=== PATIENT | female | born 1935 | race American Indian/Alaskan Native ===

== ENCOUNTER 2017-03-27 15:06 | Outpatient (CLI) | payer MEDICARE, OTHER | END 2017-03-27 15:07 | disposition home or self-care (01) | LOC: LABHHL 15:06 | PROVIDERS: ATTEND Surgery | DX: D48.7 Neoplasm of uncertain behavior of other specified sites (principal) | CPT/HCPCS: 88305; 88342 ==

== ENCOUNTER 2017-04-17 14:00 | Outpatient (CLI) | payer MEDICARE ==
--- NOTE | 2017-04-18 13:21 | PET Report ---
PET/CT:04/17/17 14:00:00 CLINICAL: Breast cancer restaging. RADIOPHARMACEUTICAL: 15.5mCi F18-FDG. COMPARISON: None. TECHNIQUE- Following intravenous injection of F-18 FDG and an approximately 60 minute uptake period, CT and PET images from the mid skull to the upper thighs were acquired with the patient in the fasted state. No contrast was administered. The CT protocol used for this PET CT study is designed for attenuation correction and anatomic localization of PET abnormalities. This assistant health educator CT is not desired to produce and cannot replace, xzivz-xu-hht-art diagnostic CT scans with specific imaging protocols for different body parts and indications. Plasma glucose at the time of this test: 120g/dl. The standardized uptake values (SUV) are normalized to patient body weight and indicate the highest activity concentration (SUV max) in a given disease site. FINDINGS: Brain--Physiologic FDG uptake in the visualized regions of the brain. Neck--Physiologic FDG uptake . Chest--Physiologic FDG uptake in mediastinal blood pool and myocardium. Lungs--No abnormal uptake. No pulmonary nodule or mass. Pleura/pericardium--No abnormal uptake. Thoracic nodes--No abnormal uptake. Hepatobiliary--No abnormal uptake. Liver background SUV mean, as a reference for comparing FDG studies, is 4.6 . No liver mass. Spleen--No abnormal uptake. Pancreas--No abnormal uptake. Adrenal Glands--No abnormal uptake. Kidneys/Ureters/Bladder--No abnormal uptake. Numerous bilateral large benign renal cysts. A few cyst wall calcifications in the right kidney. The renal collecting systems are nondilated. Abdominopelvic Nodes--No abnormal uptake. Bowel/Peritoneum/Mesentery--No abnormal uptake. Pelvic organs--No abnormal uptake. Bones/Soft Tissues--No abnormal uptake. No suspicious bone lesion. Other findings: Non-FDG avid skin thickening of the right breast measures 1.1 mm in thickness. Slight increased density of the right breast but no abnormal FDG uptake. IMPRESSION- 1. Negative study with no evidence of disease recurrence or metastasis. 2. Benign post radiation changes of the right breast. 3. Autosomal dominant polycystic kidney disease.
--- NOTE | 2017-04-19 11:10 | Ultrasound Report ---
RIGHT BREAST ULTRASOUND: 04/17/17 14:00:00 CLINICAL: History of breast cancer status post right partial mastectomy and radiation therapy. COMPARISON: None. FINDINGS: Ultrasound of the right breast(including all four quadrants and the retroareolar area) was performed and demonstrated no mass or suspicious shadowing. No cyst or fluid collection. Moderate skin thickening of the breast which is greatest at 6 o'clock where it measures 9 mm. IMPRESSION: Negative study status post right partial mastectomy and radiation therapy. Post radiation skin changes. BI-RADS 2 - - Benign
== END 2017-04-17 14:01 | disposition home or self-care (01) ==
LOC: PET 14:00
PROVIDERS: ATTEND Surgery
DX: C50.411 Malignant neoplasm of upper-outer quadrant of right female breast (principal); N28.1 Cyst of kidney, acquired; N28.89 Other specified disorders of kidney and ureter; Z90.11 Acquired absence of right breast and nipple
CPT/HCPCS: 76641; 78815; 82962; A9552

== ENCOUNTER 2017-05-21 05:55 | Day surgery (SDC) | payer MEDICARE ==
[2017-05-21] MEDS ORDERED: PEPCID PO NR (06:00)
[2017-05-21] MEDS ORDERED: NACL 0.9% 1000 ML 1,000 ML IV SCH (06:00)
[2017-05-21] MEDS ORDERED: XYLOCAINE MPF 2% ONE (06:40)
[2017-05-21] MEDS ORDERED: DIPRIVAN 10 MG/ML IV ONE (06:43)
[2017-05-21] MEDS ORDERED: DILAUDID ONE (06:43)
[2017-05-21] MEDS ORDERED: NACL BACTERIOSTATIC INFILTRATI ONE (06:58)
[2017-05-21] MEDS ORDERED: ANCEF/STERILE WATER 2 GM/20 ML IV NR (07:00)
--- NOTE | 2017-05-21 07:03 | Anesthesia Day of Surgery ---
Anesthesia Day of Surgery - Day of Surgery Patient Examined: Yes Patient H&P Reviewed: Yes Patient is NPO: Yes Cardiac Clearance: Yes
--- NOTE | 2017-05-21 07:07 | Anesthesia Consultation ---
Anesthesia Consult and Med Hx - Airway Anesthetic Teeth Evaluation: Good, Bridges (upper bridge is loose) ROM Head & Neck: Adequate Mental/Hyoid Distance: Adequate Mallampati Class: Class II Intubation Access Assessment: Probably Good - Pulmonary Exam CTA: Yes - Cardiac Exam Cardiac Exam: RRR - Pre-Operative Health Status ASA Pre-Surgery Classification: ASA3 Proposed Anesthetic Plan: MAC - Cardiovascular System Hx Hypertension: Yes (SOME TIME NOW) - Gastrointestinal Hx Gastroesophageal Reflux Disease: Yes (controlled on meds) - Endocrine Hx Renal Disease: Yes (cyst on r kidney) Hx Non-Insulin Dependent Diabetes: Yes (pt states pre diabetic on no meds) - Additional Comments Anesthesia Medical History Comments: NPO after MN. No prior anesthetic complications. cardiac clearance on chart.
[2017-05-21] MEDS ORDERED: VERSED ONE (07:31)
[2017-05-21] MEDS ORDERED: MARCAINE 0.25% INFILTRATI ONE ×2 (07:41→08:46)
[2017-05-21] MEDS ORDERED: XYLOCAINE 1% 20 mL ONE (08:20)
[2017-05-21] MEDS ORDERED: ROBINUL ONE (08:20)
[2017-05-21] MEDS ORDERED: ZOFRAN ONE (08:21)
[2017-05-21] MEDS ORDERED: WATER FOR IRRIG STERILE IR ONE (08:46)
[2017-05-21] MEDS ORDERED: XYLOCAINE 1% 20 mL INFILTRATI ONE (08:47)
--- NOTE | 2017-05-21 09:24 | Short Stay Summary ---
Short Stay Documentation Date of service: 05/21/17 - History H&P: obtained from office - Allergies and Medications Current Medications: Allergies No Known Allergies Allergy (Verified 05/16/17 11:31) Home Medications Medication Instructions Recorded Confirmed Last Taken Type Anastrozole [Anastrozole] 1 mg PO DAILY 05/09/17 05/09/17 05/21/17 04:45 History Bisoprolol [Zebeta] 5 mg PO DAILY 05/09/17 05/09/17 05/21/17 04:45 History Diltiazem Xt [Taztia Xt] 300 mg PO DAILY 05/09/17 05/21/17 05/20/17 History Enalapril Maleate [Vasotec] 10 mg PO DAILY 05/09/17 05/09/17 05/21/17 04:45 History Escitalopram [Lexapro] 10 mg PO DAILY 05/09/17 05/09/17 05/21/17 04:45 History Lansoprazole [Lansoprazole] 30 mg PO DAILY 05/09/17 05/09/17 05/21/17 04:45 History HYDROcodone/APAP 5-325 [[place] 1 each PO Q6HR PRN #30 tablet 05/21/17 Unknown Rx 5/325] Active Medications Cefazolin Sodium (Ancef/Sterile Water 2 Gm/20 Ml) 2 gm IV PREOP NR Stop: 05/21/17 23:59 Famotidine (Pepcid) 20 mg PO PREOP NR Stop: 05/21/17 21:00 Last Admin: 05/21/17 07:01 Dose: 20 mg Sodium Chloride (Nacl 0.9% 1000 Ml) 1,000 mls @ 75 mls/hr IV DIRECT JAVED Last Admin: 05/21/17 07:05 Dose: 75 mls/hr - Brief post op/procedure progress note Date of procedure: 05/21/17 Pre-op diagnosis: Recurrent right breast cancer of the upper outer quadrant Post-op diagnosis: same Procedure: Right breast partial mastectomy Anesthesia: MAC Findings: Excisional of known positive skin punch biopsy breast cancer recurrence Surgeon: JUANY HUDSON Estimated blood loss: minimal Pathology: list (right partial mastectomy) Specimen disposition: to lab - Disposition Condition at discharge: Good Disposition: DC-01 TO HOME OR SELFCARE Short Stay Discharge Plan Activity: other (no heavy lifting) Diet: regular Wound: other (keep incision clean and dry and my shower in 24 hours; no baths, pools or lakes; do not rub or scrub incision) Follow up with: SIGRID WATKINS MD [Primary Care Provider] - 7 Days JUANY HUDSON MD [Staff Physician] - 7 Days Prescriptions: HYDROcodone/APAP 5-325 [[place] 5/325] 1 each PO Q6HR PRN #30 tablet PRN Reason: Pain
--- NOTE | 2017-05-21 09:33 | Operative Report ---
Operative Report Operative Report: Date of procedure: May 21, 2017 Pre-operative diagnosis: Recurrent right breast cancer of the upper outer quadrant Post-operative diagnosis: Same Procedure name(s): Right breast partial mastectomy Surgeon: Morenita Humphreys M.D. Anesthesia: Local Mac Findings: Right breast 11 o'clock position of the upper outer quadrant of known recurrence localized to the skin with palpable nodule and scar present Specimens: Right breast partial mastectomy Drains: None Estimated blood loss: Minimal Complications: None Disposition: PACU in good condition Indications for operative procedure: This is a 82-year-old lady with recurrent right breast cancer of the upper outer quadrant. Recent skin punch biopsy performed at palpable nodule at 11:00 position at prior surgical incisional scar with findings of recurrence of invasive carcinoma. Recommendations were to proceed with surgery for excision. Patient wished to proceed with local excision only. Patient wishes to proceed with the above procedure. Procedure in detail: The patient was taken to the operating room. She was laid supine. Local Mac anesthesia was administered. The right breast was prepped and draped in the normal sterile operative fashion. Timeout was performed. Surgical incision at the 11 o'clock position was identified at prior area of known positive skin punch biopsy for malignancy. Skin markings were made to encompass the area of concern using an ecllipictal incisin. Skin was anesthetized with 1% lidocaine and quarter percent Marcaine. A skin incision was then made with a 15 blade knife with dissection taken down to the subcutaneous incision down posteriorly anterior to the pectoralis muscle. Area of concern was appropriately removed. Breast specimen was appropriately marked and sent to pathology. Breast cavity was irrigated and suctioned. Hemostasis was noted. The subcutaneous tissues were approximated and closed using interrupted 3-0 Vicryl and the skin closed using of 4-0 Monocryl and skin affix. She tolerated surgery very well and was awakened from anesthesia without any complications and transported to PACU in good condition.
[2017-05-21 11:24] VITALS: BP 130/78
--- NOTE | 2017-05-21 14:28 | Post Anesthesia Evaluation ---
- Post Anesthesia Evaluation Patient Participated: Yes Airway Patent: Yes Stable Respiratory Function: Yes Nausea/Vomiting: No Temp > 96.8F: Yes Pain Manageable: Yes Adequeate Hydration: Yes Anesthesia Complications: No
== END 2017-05-21 10:25 | disposition home or self-care (01) ==
LOC: OR 05:55
PROVIDERS: ATTEND Surgery
DX: C50.411 Malignant neoplasm of upper-outer quadrant of right female breast (principal); I10 Essential (primary) hypertension; K21.9 Gastro-esophageal reflux disease without esophagitis; Z87.448 Personal history of other diseases of urinary system; Z90.710 Acquired absence of both cervix and uterus; Z98.890 Other specified postprocedural states; Z79.899 Other long term (current) drug therapy; Z80.3 Family history of malignant neoplasm of breast
CPT/HCPCS: 19120; 36415; 82962; 84132; 88307; 88361; J0690; J1170; J2250; J2405; J2704; J7030

== ENCOUNTER 2017-06-11 06:55 | Day surgery (SDC) | payer MEDICARE ==
[2017-06-11] MEDS ORDERED: NACL BACTERIOSTATIC INFILTRATI ONE (08:31)
[2017-06-11] MEDS ORDERED: DIPRIVAN 10 MG/ML IV ONE ×3 (08:35→10:04)
[2017-06-11] MEDS ORDERED: XYLOCAINE 1% 20 mL ONE (08:36)
[2017-06-11] MEDS ORDERED: MARCAINE 0.25% INFILTRATI ONE ×2 (08:36→09:54)
--- NOTE | 2017-06-11 08:42 | Anesthesia Consultation ---
Anesthesia Consult and Med Hx Date of service: 06/11/17 - Airway Anesthetic Teeth Evaluation: Good, Bridges (loose) ROM Head & Neck: Adequate Mental/Hyoid Distance: Adequate Mallampati Class: Class II Intubation Access Assessment: Probably Good - Pulmonary Exam CTA: Yes - Cardiac Exam Cardiac Exam: RRR - Pre-Operative Health Status ASA Pre-Surgery Classification: ASA3 Proposed Anesthetic Plan: General, MAC - Pulmonary Hx Smoking: No Hx Sleep Apnea: No (KIMBERLY PRE SCREEN LOW RISK) - Cardiovascular System Hx Hypertension: Yes - Central Nervous System Hx Back Pain: Yes Hx Psychiatric Problems: Yes (CLAUSTROPHOBIA) - Gastrointestinal Hx Gastroesophageal Reflux Disease: Yes (controlled on meds) - Endocrine Hx Non-Insulin Dependent Diabetes: Yes (pt states pre diabetic on no meds) - Other Systems Hx Cancer: Yes (RIGHT BREAST 2014 WITH RECURRENCE)
--- NOTE | 2017-06-11 08:42 | Anesthesia Day of Surgery ---
Anesthesia Day of Surgery - Day of Surgery Patient Examined: Yes Patient H&P Reviewed: Yes Patient is NPO: Yes Beta Blockers: Yes
[2017-06-11] MEDS ORDERED: NACL 0.9% 1000 ML 1,000 ML IV SCH (09:00)
[2017-06-11] MEDS ORDERED: ZOFRAN IV NR (09:00)
[2017-06-11] MEDS ORDERED: ANCEF/STERILE WATER 2 GM/20 ML IV NR (09:00)
[2017-06-11] MEDS ORDERED: PEPCID PO NR (09:00)
[2017-06-11] MEDS ORDERED: ePHEDrine SULFATE ONE (09:37)
[2017-06-11] MEDS ORDERED: WATER FOR IRRIG STERILE IR ONE (09:53)
[2017-06-11] MEDS ORDERED: XYLOCAINE 1% 20 mL INFILTRATI ONE (09:54)
[2017-06-11] MEDS ORDERED: VERSED IV PRN (10:00)
[2017-06-11] MEDS ORDERED: SUBLIMAZE ONE (10:04)
[2017-06-11] MEDS ORDERED: XYLOCAINE MPF 2% ONE (10:05)
--- NOTE | 2017-06-11 10:44 | Short Stay Summary ---
Short Stay Documentation Date of service: 06/11/17 - History H&P: obtained from office - Allergies and Medications Current Medications: Allergies No Known Allergies Allergy (Verified 05/16/17 11:31) Home Medications Medication Instructions Recorded Confirmed Last Taken Type Anastrozole [Anastrozole] 1 mg PO DAILY 05/09/17 06/11/17 06/10/17 History Lansoprazole [Lansoprazole] 30 mg PO DAILY 05/09/17 06/11/17 06/10/17 History RX: Bisoprolol [Zebeta] 5 mg PO DAILY 05/09/17 06/11/17 06/11/17 06:30 History RX: Diltiazem Xt [Taztia Xt] 300 mg PO DAILY 05/09/17 06/06/17 06/11/17 06:30 History RX: Enalapril Maleate [Vasotec] 10 mg PO DAILY 05/09/17 06/06/17 06/11/17 06:30 History Potassium Chloride [Klor-Con 10] 10 meq PO DAILY 06/06/17 06/11/17 06/10/17 History Brimonidine Tartrate [Alphagan P 1 drop OU BID 06/11/17 06/11/17 06/10/17 History 0.1%] HYDROcodone/APAP 5-325 [[place] 1 each PO Q6HR PRN #20 tablet 06/11/17 Unknown Rx 5/325] RX: Bimatoprost 0.01%(Nf) [[place] 1 drop OU BID 06/11/17 06/11/17 06/10/17 History 0.01%(Nf)] Active Medications Cefazolin Sodium (Ancef/Sterile Water 2 Gm/20 Ml) 2 gm IV PREOP NR Stop: 06/11/17 12:00 Famotidine (Pepcid) 20 mg PO PREOP NR Stop: 06/11/17 12:00 Last Admin: 06/11/17 08:37 Dose: 20 mg Hydromorphone HCl (Dilaudid) 0.5 mg IV Q10MIN PRN PRN Reason: Pain , Severe (7-10) Stop: 06/11/17 12:00 Sodium Chloride (Nacl 0.9% 1000 Ml) 1,000 mls @ 100 mls/hr IV DIRECT JAVED Last Admin: 06/11/17 08:40 Dose: 100 mls/hr Midazolam HCl (Versed) 1 mg IV PREOP PRN PRN Reason: Anxiety Stop: 06/12/17 10:01 Last Admin: 06/11/17 08:48 Dose: 1 mg - Brief post op/procedure progress note Date of procedure: 06/11/17 Pre-op diagnosis: Right breast cancer of the upper outer quadrant Post-op diagnosis: same Procedure: Right breast margin revision Anesthesia: MAC Findings: Right breast margin revision Surgeon: JUANY HUDSON Estimated blood loss: minimal Pathology: list (right breast margin revision) Specimen disposition: to lab Condition: stable - Disposition Condition at discharge: Good Disposition: DC- TO HOME OR SELFCARE Short Stay Discharge Plan Activity: other (no heavy lifting) Diet: regular Wound: other (keep incision clean and dry; may shower in 24 hours; no baths, pools or lakes; do not rub or scrub incision) Follow up with: SIGRID WATKINS MD [Primary Care Provider] - 7 Days JUANY HUDSON MD [Staff Physician] - 7 Days Prescriptions: HYDROcodone/APAP 5-325 [[place] 5/325] 1 each PO Q6HR PRN #20 tablet PRN Reason: Pain
--- NOTE | 2017-06-11 10:48 | Operative Report ---
Operative Report Operative Report: Date of service: 06/11/2017 Preoperative diagnosis: Right breast cancer of the upper outer quadrant, reoccurrence with positive margins Postoperative diagnosis: Same Procedure: Right breast margin revision Surgeon: Morenita Humphreys M.D. Anesthesia: Local Mac Findings: Inferior breast margin revised Complications: None Estimated blood loss: minimal Disposition: PACU in good condition Indications for operative procedure: This is an 82-year-old -[place] lady with recurrent right breast cancer of the upper outer quadrant. She most recently underwent a local excision with findings of less than 1 mm inferior margin close to cancer with recommendations for margin revision. Patient wished to proceed with the above procedure. Procedure in detail: The patient was taken to the operating room. She was laid supine. Local Mac anesthesia was administered. The right breast was prepped and draped in the normal operative fashion. This prior surgical incision was anesthetized with 1% lidocaine mixed with quarter percent Marcaine. Skin incision was made through the prior surgical incision using a 15 blade knife. Allis clamps were grasped on the inferior aspect of the skin to also include inferior breast tissues with inferior margin revised appropriately and marked and sent to pathology. Hemostasis was obtained with the aid of Bovie cautery. Posterior breast tissue was appropriately approximated and closed using interrupted 3-0 Vicryl and the subcutaneous tissues were brought together and closed using interrupted 3-0 Vicryl and skin brought together and closed using a running 4-0 Monocryl and skin affix. She tolerated surgery very well and was awakened from anesthesia and transported to PACU in good condition.
[2017-06-11] MEDS: DILAUDID IV PRN ×2 (10:50→11:03)
[2017-06-11] MEDS ORDERED: NORCO 5/325 PO SCH (11:31)
[2017-06-11 19:23] VITALS: BP 147/86
== END 2017-06-11 12:49 | disposition home or self-care (01) ==
LOC: OR 06:55 → EDSEX 06:55 → OR 12:49
PROVIDERS: ATTEND Surgery
DX: C50.411 Malignant neoplasm of upper-outer quadrant of right female breast (principal); I10 Essential (primary) hypertension; F40.240 Claustrophobia; K21.9 Gastro-esophageal reflux disease without esophagitis; Z98.890 Other specified postprocedural states; Z79.899 Other long term (current) drug therapy; Z90.710 Acquired absence of both cervix and uterus
CPT/HCPCS: 19301; 82962; 88307; J0690; J1170; J2250; J2405; J2704; J3010; J7030

== ENCOUNTER 2017-10-14 07:45 | Day surgery (SDC) | payer MEDICARE ==
--- NOTE | 2017-10-14 08:23 | Anesthesia Day of Surgery ---
Anesthesia Day of Surgery - Day of Surgery Patient Examined: Yes Patient H&P Reviewed: Yes Patient is NPO: Yes
--- NOTE | 2017-10-14 08:23 | Anesthesia Consultation ---
Anesthesia Consult and Med Hx Date of service: 10/14/17 - Airway Anesthetic Teeth Evaluation: Good, Bridges ROM Head & Neck: Adequate Mental/Hyoid Distance: Adequate Mallampati Class: Class II Intubation Access Assessment: Probably Good - Pulmonary Exam CTA: Yes - Cardiac Exam Cardiac Exam: RRR - Pre-Operative Health Status ASA Pre-Surgery Classification: ASA3 Proposed Anesthetic Plan: General, MAC - Pulmonary Hx Smoking: No Hx Sleep Apnea: No (KIMBERLY PRE SCREEN LOW RISK) - Cardiovascular System Hx Hypertension: Yes (MORE THAN 20Y) - Central Nervous System Hx Back Pain: Yes Hx Psychiatric Problems: Yes (CLAUSTROPHOBIA) - Gastrointestinal Hx Gastroesophageal Reflux Disease: Yes (controlled on meds, meds taken this am) - Endocrine Hx Non-Insulin Dependent Diabetes: Yes (pt states pre diabetic on no meds) - Other Systems Hx Alcohol Use: No Hx Substance Use: No Hx Cancer: Yes (RIGHT BREAST 2014 WITH RECURRENCE)
[2017-10-14] MEDS ORDERED: ZOFRAN IV PRN (08:24)
[2017-10-14] MEDS ORDERED: PERCOCET 5/325 PO PRN ×2 (08:24→12:44)
[2017-10-14] MEDS ORDERED: MORPHINE IV PRN (08:24)
[2017-10-14] MEDS ORDERED: VERSED IV NR (09:00)
[2017-10-14] MEDS ORDERED: NACL 0.9% 1000 ML 1,000 ML IV SCH (09:00)
[2017-10-14] MEDS ORDERED: HEPARIN 10,000 UNITS/10 ML ONE (09:54)
[2017-10-14] MEDS ORDERED: XYLOCAINE 1% 20 mL ONE (09:54)
[2017-10-14] MEDS ORDERED: NACL 0.9% 250ML 250 ML ONE (09:55)
[2017-10-14] MEDS ORDERED: ANCEF/STERILE WATER 2 GM/20 ML IV NR (10:00)
[2017-10-14] MEDS ORDERED: MARCAINE 0.25% INFILTRATI ONE ×3 (10:00→10:34)
[2017-10-14] MEDS ORDERED: DIPRIVAN 10 MG/ML IV ONE ×3 (10:06→11:28)
[2017-10-14] MEDS ORDERED: SUBLIMAZE ONE (10:06)
[2017-10-14] MEDS ORDERED: XYLOCAINE MPF 2% ONE (10:08)
[2017-10-14] MEDS ORDERED: XYLOCAINE 1% 20 mL INFILTRATI ONE ×2 (10:34)
[2017-10-14] MEDS ORDERED: NACL 0.9% 250ML IV ONE (10:47)
[2017-10-14] MEDS ORDERED: HEPARIN 10,000 UNITS/10 ML IV ONE (10:47)
[2017-10-14] MEDS ORDERED: NACL 0.9% IR ONE (10:54)
--- NOTE | 2017-10-14 12:09 | Short Stay Summary ---
Short Stay Documentation Date of service: 10/14/17 Narrative H&P: 82-year-old female with a history of right breast cancer, now with newly diagnosed recurrence in the right breast. Patient's being followed by Dr. Humphreys and is status post excision of right-sided breast cancer. She's also seeing oncology as an outpatient and is a candidate for chemotherapy. She is therefore referred for port placement. She has no complaints today. - History Principal diagnosis: right recurrent breast cancer H&P: obtained from office - Allergies and Medications Current Medications: Allergies Iodinated Contrast- Oral and IV Dye Allergy (Verified 10/09/17 14:39) Unknown Sulfa (Sulfonamide Antibiotics) Allergy (Verified 10/09/17 14:39) Hives Home Medications Medication Instructions Recorded Confirmed Last Taken Type Anastrozole [Anastrozole] 1 mg PO DAILY 05/09/17 10/09/17 10/14/17 07:00 History Bisoprolol [Zebeta] 5 mg PO DAILY 05/09/17 10/09/17 10/14/17 07:00 History Diltiazem Xt [Taztia Xt] 300 mg PO DAILY 05/09/17 10/09/17 10/14/17 07:00 History Enalapril Maleate [Vasotec] 10 mg PO DAILY 05/09/17 10/09/17 10/14/17 07:00 History Lansoprazole [Lansoprazole] 30 mg PO DAILY 05/09/17 10/09/17 10/14/17 07:00 History Potassium Chloride [Klor-Con 10] 10 meq PO DAILY 06/06/17 10/14/17 10/13/17 History Bimatoprost 0.01%(Nf) [[place] 1 drop OU BID 06/11/17 10/09/17 10/14/17 07:00 History 0.01%(Nf)] Brimonidine Tartrate [Alphagan P 1 drop OU BID 06/11/17 10/09/17 10/14/17 07:00 History 0.1%] Active Medications Sodium Chloride (Nacl 0.9% 1000 Ml) 1,000 mls @ 125 mls/hr IV DIRECT JAVED Last Admin: 10/14/17 08:55 Dose: 125 mls/hr Midazolam HCl (Versed) 2 mg IV PREOP NR Stop: 10/14/17 23:59 Last Admin: 10/14/17 09:55 Dose: 2 mg - Physical exam General appearance: no acute distress - Brief post op/procedure progress note Date of procedure: 10/14/17 Pre-op diagnosis: recurrent right breast cancer Post-op diagnosis: same Procedure: Left IJ port a cath placement Anesthesia: MAC, local Findings: good placement of port a cath, no PTX seen on intraop cxr Surgeon: MARK BLACKMON Estimated blood loss: minimal Pathology: none Condition: stable - Hospital course Hospital course: Patient was recovered in PACU. She was discharged to home in stable condition once criteria was met. - Disposition Condition at discharge: Stable Disposition: DC-01 TO HOME OR SELFCARE - Discharge Diagnoses (1) Recurrent breast cancer Status: Acute Qualifiers: Laterality: right Qualified Code(s): C50.911 - Malignant neoplasm of unspecified site of right female breast Short Stay Discharge Plan Activity: other (no driving if taking narcotic pain medications) Diet: regular Wound: open to air, other (no baths, hot tubs, pools until incisions are healed. May shower tomorrow, pat incisions dry, do not scrub skin glue) Additional Instructions: CAll surgeons office if fevers greater than 100.4, increasing redness around incisions or pus draining from incisions. Some bruising is normal. Follow-up with oncologist and Dr. Humphreys as scheduled. Follow up with: SIGRID WATKINS MD [Primary Care Provider] - 7 Days MARK BLACKMON DO [Staff Physician] - 14 Days Prescriptions: oxyCODONE /ACETAMINOPHEN [Percocet 5/325] 1 tab PO Q4HR #20 tab
--- NOTE | 2017-10-14 12:13 | Fluoroscopy Report ---
AP portable chest x-ray. History: Port insertion. Findings: A left Nlzprh-f-[id number] catheter terminates in the lower SVC, and there is no evidence of pneumothorax. The heart is mildly enlarged with normal pulmonary vascularity. The patient is slightly rotated. There is soft tissue prominence in the right hilum which may represent the right pulmonary artery. A small nodule cannot be excluded. Otherwise the lungs are clear. There is no pleural fluid. Impression: 1. No complications of left [id number]-[id number]-[id number] placement. 2. Soft tissue prominence in the right hilum, recommend a followup chest x-ray with better positioning to reevaluate the right hilum.
--- NOTE | 2017-10-14 12:22 | Operative Report ---
Operative Report Operative Report: Date of operation: 10/14/2017 Reoperative diagnosis: Recurrent right-sided breast cancer Postoperative diagnosis: Same as above Procedure performed: Placement of left internal jugular port a cath Surgeon: Su Piña DO Anesthesia: MAC, local Findings: On intraoperative CXR - good placement of port and no PTX EBL: 10cc Complications: none Disposition: stable to PACU HPI and indication: Patient is a 82-year-old female who has a history of breast cancer and was recently diagnosed with a recurrence on the right hand side. She is seen by Dr. Humphreys and oncology as an outpatient and is deemed a candidate for chemotherapy. She was therefore referred for port. All of the risks associated with the procedure were discussed with the patient including but not limited to pneumothorax, infection, bleeding, malpositioned port, injury to other structures. The patient understands and all questions were answered. Consent was signed and placed on chart. Procedure in detail: The patient was identified in the preoperative area, taken back to operating room, placed on operating table in supine position. After anesthesia was induced both arms were tucked and upper chest and neck were prepped and draped in usual sterile fashion. A timeout was performed. She was placed in Trendelenburg position. Local anesthetic was infiltrated into the skin at the intended puncture site. An attempt was made to access the subclavian vein on the left-hand side. This was accessed on the second stick however there was resistance with placing the wire and therefore subclavian access was aborted. Pressure was held at the site until there was no further bleeding. It was then decided to attempt a left internal jugular vein access. Using ultrasound guidance a left internal jugular vein was identified and compressible. The vein was accessed on the first stick with return of dark red , nonpulsatile blood. The wire was threaded under fluoroscopy however was meeting resistance. This was switched to a Glidewire which was successfully placed under fluoroscopy. The needle was then removed. Using a 15 blade, an incision was made in the left upper chest and dissection carried down through the skin and subcutaneous tissue using Bovie electrocautery. Hemostasis was achieved along the way. A pocket for the port was then created bluntly and with electrocautery. The catheter was flushed and tunneled from the pocket to the wire. A breakaway catheter/dilator sheath then inserted over the wire under fluoroscopy, and the wire and dilator removed. The catheter was then fed through the breakaway catheter which was then broken away. The catheter sat flush under the skin. Using continuous fluoroscopy, the catheter was pulled back until the tip was visualized in the right atrium. The catheter was then cut to size and the port attached in the usual fashion. The port was then sutured into place to the pre-pectoral fascia using 2-0 Vicryl interrupted sutures. The wound was irrigated and hemostasis ensured. The port was tested with heparinized saline and there was return of blood and it flushed easily. The port was then instilled with 3000 units of straight heparin. The deep dermal layer was then closed with interrupted 3-0 Vicryl stitches. The skin incisions were closed with 4-0 Monocryl subcuticular stitches and skin glue. Intraoperative chest x-ray did show good positioning of the port, without evidence of pneumothorax At the end of the case, all sponge, instrument, sharp counts were correct 2. The patient was awoken from anesthesia and taken to PACU in stable condition.
--- NOTE | 2017-10-14 12:45 | Post Anesthesia Evaluation ---
- Post Anesthesia Evaluation Patient Participated: Yes Airway Patent: Yes Stable Respiratory Function: Yes Temp > 96.8F: Yes Pain Manageable: Yes Adequeate Hydration: Yes Anesthesia Complications: No
[2017-10-14 13:56] VITALS: BP 160/88
== END 2017-10-14 13:45 | disposition home or self-care (01) ==
LOC: OR 07:45
PROVIDERS: ATTEND Surgery
DX: C50.411 Malignant neoplasm of upper-outer quadrant of right female breast (principal); K21.9 Gastro-esophageal reflux disease without esophagitis; I10 Essential (primary) hypertension; Z79.899 Other long term (current) drug therapy; Z91.041 Radiographic dye allergy status; Z88.2 Allergy status to sulfonamides
CPT/HCPCS: 36561; 77001; 82962; C1769; C1788; J0690; J1644; J2250; J2704; J3010; J7030; J7050

== ENCOUNTER 2018-03-15 19:01 | Inpatient (IN) | payer MEDICARE ==
[2018-03-15 19:55] LABS: Hematocrit 36.1 % (30.3-42.9); Hemoglobin 11.6 gm/dl (10.1-14.3); Mean Corpuscular HGB Conc 32 % (30-34); Mean Corpuscular Hemoglobin 31 pg (28-32); Mean Corpuscular Volume 95 fl (79-97); Platelet Count 229 K/mm3 (140-440); Red Blood Count 3.79 M/mm3 (3.65-5.03); Red Cell Distribution Width 18.5 % (13.2-15.2)
[2018-03-15 20:24] LABS: Bilirubin,Urine NEG (Negative); Blood,Urine NEG (Negative); Color,Urine Yellow (Yellow); Protein,Urine <15 mg/dL mg/dL (Negative); Urobilinogen,Urine < 2.0 mg/dL (<2.0); WBC,Urine < 1.0 /HPF (0.0-6.0)
[2018-03-15 20:30] LABS: Alanine Aminotransferase 9 units/L (7-56); Albumin 3.2 g/dL (3.9-5); BUN/Creatinine Ratio 38; Blood Urea Nitrogen 34 mg/dL (7-17); Hemolysis Index 3
[2018-03-15 20:34] LABS: Amphetamine Screen,Urine PRESUMPTIVE NEGATIVE; Benzodiazepines Screen,Urine PRESUMPTIVE NEGATIVE; Cannabinoid Screen,Urine PRESUMPTIVE NEGATIVE; Cocaine Screen,Urine PRESUMPTIVE NEGATIVE; Methadone Screen,Urine PRESUMPTIVE NEGATIVE; Opiate Screen,Urine PRESUMPTIVE NEGATIVE
[2018-03-15 20:40] LABS: Band Neutrophils # (Manual) 0.3 K/mm3; Basophils % (Manual) 0 % (0.0-1.8); Eosinophils % (Manual) 0 % (0.0-4.3); Platelet Estimate Consistent w Auto; Total Cells Counted 100
[2018-03-15] MEDS ORDERED: ATIVAN IM ONE (20:47)
[2018-03-15] MEDS ORDERED: ATIVAN ONE (20:48)
--- NOTE | 2018-03-15 20:54 | Emergency Department Report ---
HPI - General Chief Complaint: Altered Mental Status Time Seen by Provider: 03/15/18 20:09 - HPI HPI: 83-year-old female presents to the emergency department via EMS from her long term at [place] with a complaint of some altered mental status and lethargy since last night. She has a history of diabetes, GERD, hypertension and she has breast cancer undergoing chemotherapy. The patient's son is bedside and says that she has been in out of a few different hospitals including [facility] and what sounds like another hospital in [facility] for some similar episodes of altered mental status. At one point he says that she had a seizure, without seizure disorder, and a heart attack. He says that he checked on her last night and there were multiple episodes where she was in a "deep sleep" and as the son says "unresponsive to human touch." It does not sound as if she ever stopped breathing or lost her pulse but just was unresponsive. She currently only moans and is easily agitated and appears confused. ED Past Medical Hx - Past Medical History Hx Hypertension: Yes (MORE THAN 20Y) Hx Diabetes: Yes Hx GERD: Yes Hx HIV: No - Surgical History Hx Breast Surgery: Yes (2014 WITH RADIATION TREATMENT) - Social History Smoking Status: Unknown if ever smoked - Medications Home Medications: Home Medications Medication Instructions Recorded Confirmed Last Taken Type Anastrozole 1 mg PO DAILY 05/09/17 10/09/17 10/14/17 07:00 History Bisoprolol [Zebeta] 5 mg PO DAILY 05/09/17 10/09/17 10/14/17 07:00 History Diltiazem Xt [Taztia Xt] 300 mg PO DAILY 05/09/17 10/09/17 10/14/17 07:00 History Enalapril Maleate [Vasotec] 10 mg PO DAILY 05/09/17 10/09/17 10/14/17 07:00 History Lansoprazole 30 mg PO DAILY 05/09/17 10/09/17 10/14/17 07:00 History Potassium Chloride [Klor-Con 10] 10 meq PO DAILY 06/06/17 10/14/17 10/13/17 History Bimatoprost 0.01%(Nf) [Lumigan 1 drop OU BID 06/11/17 10/09/17 10/14/17 07:00 History 0.01%(Nf)] Brimonidine Tartrate [Alphagan P 1 drop OU BID 06/11/17 10/09/17 10/14/17 07:00 History 0.1%] oxyCODONE /ACETAMINOPHEN [Percocet 1 tab PO Q4HR #20 tab 10/14/17 Unknown Rx 5/325] ED Review of Systems ROS: Stated complaint: LETHARGIC/AMS Other details as noted in HPI Comment: Unobtainable due to pts medical conditions Physical Exam - Physical Exam Vital Signs: Vital Signs 03/15/18 03/15/18 19:15 20:20 Temperature 98.5 F Pulse Rate 105 H 106 H Respiratory 20 18 Rate Blood Pressure 155/96 Blood Pressure 121/94 [Right] O2 Sat by Pulse 100 97 Oximetry Physical Exam: GENERAL: Patient is well-developed but ill-appearing. HENT: Normocephalic. Atraumatic. Patient has dry mucous membranes. EYES: Extraocular motions are intact. Pupils equal reactive to light bilaterally. NECK: Supple. Trachea is midline. CHEST/LUNGS: Clear to auscultation. There is no respiratory distress noted. HEART/CARDIOVASCULAR: Regular. There is no tachycardia. There is no murmur. ABDOMEN: Abdomen is soft, nontender. Patient has normal bowel sounds. There is no abdominal distention. SKIN: Skin is warm and dry. NEURO: The patient will wake up but is confused and more agitated. Sometimes she moans but otherwise does not say anything intelligible and does not follow any commands. She withdraws to painful stimuli. MUSCULOSKELETAL: There is no tenderness or deformity. There is no evidence of acute injury. ED Course Vital Signs 03/15/18 03/15/18 19:15 20:20 Temperature 98.5 F Pulse Rate 105 H 106 H Respiratory 20 18 Rate Blood Pressure 155/96 Blood Pressure 121/94 [Right] O2 Sat by Pulse 100 97 Oximetry - Consultations Consultation #1: 03/16/18 01:[address] Nieves about her elevated troponin of 0.045 and the possible new Atrial flutter with controlled rate and he says Heparin should not be given at this time and to trend the troponins and they are happy to see the patient as a consult. ED Medical Decision Making - Lab Data Result diagrams: 03/15/18 19:36 03/15/18 19:36 - EKG Data -: EKG Interpreted by Me - EKG Data When compared to previous EKG there are: previous EKG unavailable Interpretation: other (atrial flutter with 21 AV block, left axis deviation, left anterior fascicular block) - Radiology Data Radiology results: report reviewed, image reviewed interpreted by me: Chest x-ray does not show any acute process. There are no pleural effusions, obvious pneumonia and there is no pneumothorax. EXAM: CT HEAD/BRAIN WO CON HISTORY: AMS TECHNIQUE: CT head without contrast PRIORS: None. FINDINGS: No acute intra-axial or extra-axial hemorrhage is identified. There is no evidence of midline shift or mass effect. The ventricles and sulci are within normal limits. Parker-white matter differentiation is intact. No acute parenchymal abnormalities seen. Bony calvarium is grossly intact. Visualized portions of the mastoids and paranasal sinuses are unremarkable. IMPRESSION: Negative CT head Transcribed By: KIKO Dictated By: ELIN MARTINS MD Electronically Authenticated By: ELIN MARTINS MD Signed Date/Time: 03/15/182120 - Medical Decision Making Patient presents from her long term with some unresponsive episodes and altered mental status. It sounds like, from her son, that she has had some general decline since she was in a hospital in December but he still maintains that her current state is altered from baseline. CT scan of the head did not show any bleed, shift, mass or any acute process. EKG shows atrial flutter. At first I thought this might be secondary to movement and/or agitation but when she was sedated the monitor still appeared to show some signs of flutter. However she does not have any significant tachycardia and appears rate control. She did have elevated troponin at 0.045 but it has now trended down to 0.033. I had spoken with the oil tank car cleaner who did not recommend heparin and does recommend trending troponins and will see the patient has a consult. The rest the labs are mostly unremarkable and did not show any etiology of her symptoms. She is not having leukocytosis but her differential does show a left shift. Patient will be admitted to the hospital for further evaluation and treatment has been accepted for admission by the hospitalist, Dr Dumont. - Differential Diagnosis VT, dysrythmia, CVA/TIA, dementia, Sepsis Critical Care Time: No Critical care attestation.: If time is entered above; I have spent that time in minutes in the direct care of this critically ill patient, excluding procedure time. ED Disposition Clinical Impression: Elevated troponin Altered mental status Qualifiers: Altered mental status type: unspecified Qualified Code(s): R41.82 - Altered mental status, unspecified Atrial flutter Qualifiers: Atrial flutter type: unspecified Qualified Code(s): I48.92 - Unspecified atrial flutter Disposition: DC-09 OP ADMIT IP TO THIS HOSP Is pt being admited?: Yes Condition: Fair Referrals: BEE POLLOCK,JIMBO [Other] - 3-5 Days Forms: Accompanied Note
--- NOTE | 2018-03-15 21:16 | XRay Report ---
FINAL REPORT EXAM: XR CHEST 1V AP HISTORY: AMS TECHNIQUE: AP portable PRIORS: None. FINDINGS: There is the left sided chest port catheter tip at the SVC There is elevation of the right hemidiaphragm. Cardiac and mediastinal contours are unremarkable. No confluent pulmonary infiltrate is identified. No pleural fluid collection seen. Pulmonary vasculature is unremarkable. IMPRESSION: Chest port Elevation of the right hemidiaphragm No acute pulmonary findings
--- NOTE | 2018-03-15 21:27 | Cat Scan Report ---
FINAL REPORT EXAM: CT HEAD/BRAIN WO CON HISTORY: AMS TECHNIQUE: CT head without contrast PRIORS: None. FINDINGS: No acute intra-axial or extra-axial hemorrhage is identified. There is no evidence of midline shift or mass effect. The ventricles and sulci are within normal limits. Parker-white matter differentiation is intact. No acute parenchymal abnormalities seen. Bony calvarium is grossly intact. Visualized portions of the mastoids and paranasal sinuses are unremarkable. IMPRESSION: Negative CT head
[2018-03-15 21:32] LABS: Chol/HDL Ratio 3.34 %
[2018-03-15] MEDS ORDERED: ASPIRIN PR ONE (21:54)
[2018-03-15] MEDS ORDERED: NACL 0.9% 1000 ML 1,000 ML IV ONE (21:55)
[2018-03-15] MEDS ORDERED: ATIVAN IV ONE (23:43)
[2018-03-16] MEDS ORDERED: SODIUM CHLORIDE FLUSH SYRINGE 10 ML IV PRN (00:47)
[2018-03-16] MEDS ORDERED: ZOFRAN IV PRN (00:47)
[2018-03-16] MEDS ORDERED: LOPRESSOR IV PRN (00:51)
[2018-03-16] MEDS ORDERED: D50W (25GM) Syringe IV PRN (00:55)
--- NOTE | 2018-03-16 01:53 | History and Physical Report ---
History of Present Illness Date of examination: 03/16/18 Chief complaint: Altered mental status History of present illness: Patient is a 83-year-old female who presented to the emergency department via EMS from [facility] facility with complaint of altered mental status and lethargy since last night. She has history of diabetes, hypertension and breast cancer undergoing chemotherapy. History was unable to be obtained from the patient due to altered mental status. The son, who was at the bedside stated that when he visited his mother at the [facility] facility , he noticed that she was sleeping for a long period of time. She was unresponsive when they tried waking her up. No preceding history of fever, trauma or fall. The son stated that she had been in and out of the hospital for the past few months, and that she had been deteriorating since then. Past History Past Medical History: diabetes, GERD, hypertension, other (breast cancer status post radiation, on current chemotherapy) Past Surgical History: Other (breast surgery) Social history: other (no reported history of tobacco, alcohol or illicit drug use) Family history: other (could not be obtained due to altered mental status) Medications and Allergies Allergies Allergy/AdvReac Type Severity Reaction Status Date / Time Iodinated Contrast- Oral and Allergy Unknown Verified 10/09/17 14:39 IV Dye Sulfa (Sulfonamide Allergy Hives Verified 10/09/17 14:39 Antibiotics) Home Medications Medication Instructions Recorded Confirmed Last Taken Type Anastrozole 1 mg PO DAILY 05/09/17 10/09/17 10/14/17 07:00 History Bisoprolol [Zebeta] 5 mg PO DAILY 05/09/17 10/09/17 10/14/17 07:00 History Diltiazem Xt [Taztia Xt] 300 mg PO DAILY 05/09/17 10/09/17 10/14/17 07:00 History Enalapril Maleate [Vasotec] 10 mg PO DAILY 05/09/17 10/09/17 10/14/17 07:00 History Lansoprazole 30 mg PO DAILY 05/09/17 10/09/17 10/14/17 07:00 History Potassium Chloride [Klor-Con 10] 10 meq PO DAILY 06/06/17 10/14/17 10/13/17 History Bimatoprost 0.01%(Nf) [Lumigan 1 drop OU BID 06/11/17 10/09/1717 07:00 History 0.01%(Nf)] Brimonidine Tartrate [Alphagan P 1 drop OU BID 06/11/17 10/09/17 10/14/17 07:00 History 0.1%] oxyCODONE /ACETAMINOPHEN [Percocet 1 tab PO Q4HR #20 tab 10/14/17 Unknown Rx 5/325] Active Meds: Active Medications Acetaminophen (Tylenol) 650 mg PO Q4H PRN PRN Reason: Pain MILD(1-3)/Fever >100.5/RASHEED Dextrose (D50w (25gm) Syringe) 50 ml IV PRN PRN PRN Reason: Hypoglycemia Heparin Sodium (Porcine) (Heparin) 5,000 unit SUB-Q Q12HR JAVED Sodium Chloride (Nacl 0.9% 1000 Ml) 1,000 mls @ 125 mls/hr IV ONCE ONE Stop: 03/16/18 05:54 Last Admin: 03/15/18 22:22 Dose: 125 mls/hr Insulin Human Lispro (Humalog) 0 unit SUB-Q ACHS JAVED; Protocol Lorazepam (Ativan) 1 mg IV Q4H PRN PRN Reason: Agitation Metoprolol Tartrate (Lopressor) 25 mg PO BID JAVED Metoprolol Tartrate (Lopressor) 5 mg IV Q6H PRN PRN Reason: Tachyarrhythmias Ondansetron HCl (Zofran) 4 mg IV Q8H PRN PRN Reason: Nausea And Vomiting Sodium Chloride (Sodium Chloride Flush Syringe 10 Ml) 10 ml IV BID JAVED Sodium Chloride (Sodium Chloride Flush Syringe 10 Ml) 10 ml IV PRN PRN PRN Reason: LINE FLUSH Review of Systems ROS unobtainable: due to mental status (altered mental status) Exam - Constitutional Vitals: Temp Pulse Resp BP Pulse Ox 98.5 F 97 H 13 117/70 100 03/15/18 20:20 03/15/18 22:36 03/15/18 22:36 03/15/18 22:36 03/15/18 22:36 General appearance: Present: no acute distress - EENT Eyes: Present: PERRL, EOM intact ENT: clear oral mucosa - Neck Neck: Present: supple, normal ROM - Respiratory Respiratory effort: normal Respiratory: bilateral: CTA - Cardiovascular Rhythm: other (tachycardia with regular rhythm) Heart Sounds: Present: S1 & S2. Absent: rub, click - Extremities Extremities: pulses symmetrical, No edema - Abdominal General gastrointestinal: Present: soft, non-tender, non-distended, normal bowel sounds - Integumentary Integumentary: Present: warm, dry - Musculoskeletal Musculoskeletal: strength equal bilaterally - Psychiatric Psychiatric: agitated - Neurologic Neurologic: CNII-XII intact, moves all extremities Results - Labs CBC & Chem 7: 03/15/18 19:36 03/15/18 19:36 Labs: Laboratory Last Values WBC 10.5 K/mm3 (4.5-11.0) 03/15/18 19:36 RBC 3.79 M/mm3 (3.65-5.03) 03/15/18 19:36 Hgb 11.6 gm/dl (10.1-14.3) 03/15/18 19:36 Hct 36.1 % (30.3-42.9) 03/15/18 19:36 MCV 95 fl (79-97) 03/15/18 19:36 MCH 31 pg (28-32) 03/15/18 19:36 MCHC 32 % (30-34) 03/15/18 19:36 RDW 18.5 % (13.2-15.2) H 03/15/18 19:36 Plt Count 229 K/mm3 (140-440) 03/15/18 19:36 [place] % (Auto) Operations/Dispatch 03/15/18 19:36 Add Manual Diff Complete 03/15/18 19:36 Total Counted 100 03/15/18 19:36 Seg Neuts % (Manual) 82.0 % (40.0-70.0) H 03/15/18 19:36 Band Neutrophils % 3.0 % 03/15/18 19:36 Lymphocytes % (Manual) 5.0 % (13.4-35.0) L 03/15/18 19:36 Reactive Lymphs % (Man) 0 % 03/15/18 19:36 Monocytes % (Manual) 10.0 % (0.0-7.3) H 03/15/18 19:36 Eosinophils % (Manual) 0 % (0.0-4.3) 03/15/18 19:36 Basophils % (Manual) 0 % (0.0-1.8) 03/15/18 19:36 Metamyelocytes % 0 % 03/15/18 19:36 Myelocytes % 0 % 03/15/18 19:36 Promyelocytes % 0 % 03/15/18 19:36 Blast Cells % 0 % 03/15/18 19:36 Nucleated RBC % Not Reportable 03/15/18 19:36 Seg Neutrophils # Man 8.6 K/mm3 (1.8-7.7) H 03/15/18 19:36 Band Neutrophils # 0.3 K/mm3 03/15/18 19:36 Lymphocytes # (Manual) 0.5 K/mm3 (1.2-5.4) L 03/15/18 19:36 Abs React Lymphs (Man) 0.0 K/mm3 03/15/18 19:36 Monocytes # (Manual) 1.1 K/mm3 (0.0-0.8) H 03/15/18 19:36 Eosinophils # (Manual) 0.0 K/mm3 (0.0-0.4) 03/15/18 19:36 Basophils # (Manual) 0.0 K/mm3 (0.0-0.1) 03/15/18 19:36 Metamyelocytes # 0.0 K/mm3 03/15/18 19:36 Myelocytes # 0.0 K/mm3 03/15/18 19:36 Promyelocytes # 0.0 K/mm3 03/15/18 19:36 Blast Cells # 0.0 K/mm3 03/15/18 19:36 WBC Morphology Not Reportable 03/15/18 19:36 Hypersegmented Neuts Not Reportable 03/15/18 19:36 Hyposegmented Neuts Not Reportable 03/15/18 19:36 Hypogranular Neuts Not Reportable 03/15/18 19:36 Smudge Cells Not Reportable 03/15/18 19:36 Toxic Granulation Not Reportable 03/15/18 19:36 Toxic Vacuolation Not Reportable 03/15/18 19:36 Dohle Bodies Not Reportable 03/15/18 19:36 Pelger-Huet Anomaly Not Reportable 03/15/18 19:36 Bassem Rods Not Reportable 03/15/18 19:36 Platelet Estimate Consistent w auto 03/15/18 19:36 Clumped Platelets Not Reportable 03/15/18 19:36 Plt Clumps, EDTA Not Reportable 03/15/18 19:36 Large Platelets Not Reportable 03/15/18 19:36 Giant Platelets Not Reportable 03/15/18 19:36 Platelet Satelliting Not Reportable 03/15/18 19:36 Plt Morphology Comment Not Reportable 03/15/18 19:36 RBC Morphology Not Reportable 03/15/18 19:36 Dimorphic RBCs Not Reportable 03/15/18 19:36 Polychromasia Not Reportable 03/15/18 19:36 Hypochromasia Not Reportable 03/15/18 19:36 Poikilocytosis Not Reportable 03/15/18 19:36 Anisocytosis Not Reportable 03/15/18 19:36 Microcytosis Not Reportable 03/15/18 19:36 Macrocytosis Not Reportable 03/15/18 19:36 Spherocytes Not Reportable 03/15/18 19:36 Pappenheimer Bodies Not Reportable 03/15/18 19:36 Sickle Cells Not Reportable 03/15/18 19:36 Target Cells Not Reportable 03/15/18 19:36 Tear Drop Cells Not Reportable 03/15/18 19:36 Ovalocytes Not Reportable 03/15/18 19:36 Helmet Cells Not Reportable 03/15/18 19:36 [place] Bodies Not Reportable 03/15/18 19:36 [place] Rings Not Reportable 03/15/18 19:36 Benny Cells Not Reportable 03/15/18 19:36 Bite Cells Not Reportable 03/15/18 19:36 Crenated Cell Not Reportable 03/15/18 19:36 Elliptocytes Not Reportable 03/15/18 19:36 Acanthocytes (Spur) Not Reportable 03/15/18 19:36 Rouleaux Not Reportable 03/15/18 19:36 Hemoglobin C Crystals Not Reportable 03/15/18 19:36 Schistocytes Not Reportable 03/15/18 19:36 Malaria parasites Not Reportable 03/15/18 19:36 Rubens Bodies Not Reportable 03/15/18 19:36 Hem Pathologist Commnt No 03/15/18 19:36 Sodium 141 mmol/L (137-145) 03/15/18 19:36 Potassium 4.0 mmol/L (3.6-5.0) 03/15/18 19:36 Chloride 96.0 mmol/L (98-107) L 03/15/18 19:36 Carbon Dioxide 31 mmol/L (22-30) H 03/15/18 19:36 Anion Gap 18 mmol/L 03/15/18 19:36 BUN 34 mg/dL (7-17) H 03/15/18 19:36 Creatinine 0.9 mg/dL (0.7-1.2) 03/15/18 19:36 Estimated GFR > 60 ml/min 03/15/18 19:36 BUN/Creatinine Ratio 38 % 03/15/18 19:36 Glucose 129 mg/dL (65-100) H 03/15/18 19:36 Lactic Acid 1.70 mmol/L (0.7-2.0) 03/15/18 22:06 Calcium 10.0 mg/dL (8.4-10.2) 03/15/18 19:36 Total Bilirubin 0.40 mg/dL (0.1-1.2) 03/15/18 19:36 AST 16 units/L (5-40) 03/15/18 19:36 ALT 9 units/L (7-56) 03/15/18 19:36 Alkaline Phosphatase 70 units/L (35-129) 03/15/18 19:36 Ammonia 19.0 umol/L (25-60) L 03/15/18 21:20 Troponin T 0.033 ng/mL (0.00-0.029) H D 03/15/18 23:31 Total Protein 7.8 g/dL (6.3-8.2) 03/15/18 19:36 Albumin 3.2 g/dL (3.9-5) L 03/15/18 19:36 Albumin/Globulin Ratio 0.7 % 03/15/18 19:36 Triglycerides 151 mg/dL (2-149) H 03/15/18 19:40 Cholesterol 137 mg/dL (50-199) 03/15/18 19:40 LDL Cholesterol Direct 72 mg/dL (50-130) 03/15/18 19:40 HDL Cholesterol 41 mg/dL (40-59) 03/15/18 19:40 Cholesterol/HDL Ratio 3.34 % 03/15/18 19:40 TSH 4.010 mlU/mL (0.270-4.200) 03/15/18 19:36 Urine Color Yellow (Yellow) 03/15/18 19:59 Urine Turbidity Clear (Clear) 03/15/18 19:59 Urine pH 8.0 (5.0-7.0) H 03/15/18 19:59 Ur Specific [place] 1.015 (1.003-1.030) 03/15/18 19:59 Urine Protein <15 mg/dl mg/dL (Negative) 03/15/18 19:59 Urine Glucose (UA) Neg mg/dL (Negative) 03/15/18 19:59 Urine Ketones Neg mg/dL (Negative) 03/15/18 19:59 Urine Blood Neg (Negative) 03/15/18 19:59 Urine Nitrite Neg (Negative) 03/15/18 19:59 Urine Bilirubin Neg (Negative) 03/15/18 19:59 Urine Urobilinogen < 2.0 mg/dL (<2.0) 03/15/18 19:59 Ur Leukocyte Esterase Neg (Negative) 03/15/18 19:59 Urine WBC (Auto) < 1.0 /HPF (0.0-6.0) 03/15/18 19:59 Urine RBC (Auto) 3.0 /HPF (0.0-6.0) 03/15/18 19:59 Urine Opiates Screen Presumptive negative 03/15/18 19:59 Urine Methadone Screen Presumptive negative 03/15/18 19:59 Ur Barbiturates Screen Presumptive negative 03/15/18 19:59 Ur Phencyclidine Scrn Presumptive negative 03/15/18 19:59 Ur Amphetamines Screen Presumptive negative 03/15/18 19:59 U Benzodiazepines Scrn Presumptive negative 03/15/18 19:59 Urine Cocaine Screen Presumptive negative 03/15/18 19:59 U Marijuana (THC) Screen Presumptive negative 03/15/18 19:59 Drugs of Abuse Note Disclamer 03/15/18 19:59 Plasma/Serum Alcohol < 0.01 % (0-0.07) 03/15/18 19:36 Assessment and Plan Assessment and plan: New atrial flutter with RVR -Patient will be placed on a rate controlling agent and monitored on telemetry. 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
[2018-03-16] MEDS: NACL 0.9% 1000 ML 1,000 ML IV SCH (03:30)
[2018-03-16] MEDS: ATIVAN IV PRN ×3 (07:00→22:34)
[2018-03-16] MEDS: HumaLOG SUB-Q SCH ×3 (08:33→23:41)
--- NOTE | 2018-03-16 09:10 | Progress Note ---
<WILY PRUITT - Last Filed: 03/16/18 15:37> Assessment and Plan Assessment and plan: Pt is confused and restrained on evaluation and thus HPI is obtained from admitting provider's H&P. Pt presented to the ED via EMS on 03/15/2018 from her retirement at [facility] with a complaint of some altered mental status and lethargy for one day prior to arrival. Per pt's son, who was at bedside in ED, pt has been in out of a few different hospitals, including [facility], for some similar episodes of altered mental status. At one point he said that she had a seizure, without seizure disorder, and a heart attack. He says that on the day prior to admission, he noted multiple episodes where she appeared to be in a "deep sleep" and "unresponsive to human touch." It does not sound as if she ever stopped breathing or lost her pulse but just was unresponsive. She currently only moans and is easily agitated and appears confused. Atrial fibrillation with RVR Continue lopressor, TSH level is normal Cardiology consulted in the ED, will not repeat echo ( in chart) Elevated troponin, probably secondary to demand ischemia trending down, Cardiology following Acute encephalopathy, probably secondary to dementia with behavioral disturbances CT head is negative, Patient will be placed PRN Ativan SIRS, probably secondary to noninfectious cause On account of tachycardia and AMS, but tachycardia is secondary to afib Will continue to hydrate patient and monitor clinically [id number] diabetes mellitus type 2 Patient will be placed on SSI, accu cheks ACHS, A1C Hypertension Continue antihypertensives Prophylaxis DVT prophylaxis with heparin History Interval history: Patient seen and examined. Moaning, but noncommunicative, restrained. Labs and nursing notes reviewed. Hospitalist Physical - Physical exam Narrative exam: General appearance: Present: no acute distress, well-nourished - EENT Eyes: Present: PERRL, EOM intact ENT: hearing intact, clear oral mucosa - Neck Present: supple, normal ROM - Respiratory Respiratory effort: normal Respiratory: bilateral: CTA - Cardiovascular Rhythm: regular Heart Sounds: Present: S1 & S2 - Extremities Extremities: no ischemia, No edema - Abdominal General gastrointestinal: soft, non-tender, non-distended - Integumentary Integumentary: Present: warm, dry - Psychiatric Psychiatric: Unable to assess - Neurologic Neurologic: unable to assess moves all extremities - Constitutional Vitals: Temp Pulse Resp BP Pulse Ox 98.2 F 99 H 16 120/73 99 03/16/18 02:12 03/16/18 05:02 03/16/18 02:12 03/16/18 02:12 03/16/18 02:12 Results - Labs CBC & Chem 7: 03/15/18 19:36 03/15/18 19:36 Labs: Laboratory Last Values WBC 10.5 K/mm3 (4.5-11.0) 03/15/18 19:36 RBC 3.79 M/mm3 (3.65-5.03) 03/15/18 19:36 Hgb 11.6 gm/dl (10.1-14.3) 03/15/18 19:36 Hct 36.1 % (30.3-42.9) 03/15/18 19:36 MCV 95 fl (79-97) 03/15/18 19:36 MCH 31 pg (28-32) 03/15/18 19:36 MCHC 32 % (30-34) 03/15/18 19:36 RDW 18.5 % (13.2-15.2) H 03/15/18 19:36 Plt Count 229 K/mm3 (140-440) 03/15/18 19:36 [place] % (Auto) Accounts Payable Representative 03/15/18 19:36 Add Manual Diff Complete 03/15/18 19:36 Total Counted 100 03/15/18 19:36 Seg Neuts % (Manual) 82.0 % (40.0-70.0) H 03/15/18 19:36 Band Neutrophils % 3.0 % 03/15/18 19:36 Lymphocytes % (Manual) 5.0 % (13.4-35.0) L 03/15/18 19:36 Reactive Lymphs % (Man) 0 % 03/15/18 19:36 Monocytes % (Manual) 10.0 % (0.0-7.3) H 03/15/18 19:36 Eosinophils % (Manual) 0 % (0.0-4.3) 03/15/18 19:36 Basophils % (Manual) 0 % (0.0-1.8) 03/15/18 19:36 Metamyelocytes % 0 % 03/15/18 19:36 Myelocytes % 0 % 05/06/18 19:36 Promyelocytes % 0 % 03/15/18 19:36 Blast Cells % 0 % 03/15/18 19:36 Nucleated RBC % Not Reportable 03/15/18 19:36 Seg Neutrophils # Man 8.6 K/mm3 (1.8-7.7) H 03/15/18 19:36 Band Neutrophils # 0.3 K/mm3 03/15/18 19:36 Lymphocytes # (Manual) 0.5 K/mm3 (1.2-5.4) L 03/15/18 19:36 Abs React Lymphs (Man) 0.0 K/mm3 03/15/18 19:36 Monocytes # (Manual) 1.1 K/mm3 (0.0-0.8) H 03/15/18 19:36 Eosinophils # (Manual) 0.0 K/mm3 (0.0-0.4) 03/15/18 19:36 Basophils # (Manual) 0.0 K/mm3 (0.0-0.1) 03/15/18 19:36 Metamyelocytes # 0.0 K/mm3 03/15/18 19:36 Myelocytes # 0.0 K/mm3 03/15/18 19:36 Promyelocytes # 0.0 K/mm3 03/15/18 19:36 Blast Cells # 0.0 K/mm3 03/15/18 19:36 WBC Morphology Not Reportable 03/15/18 19:36 Hypersegmented Neuts Not Reportable 03/15/18 19:36 Hyposegmented Neuts Not Reportable 03/15/18 19:36 Hypogranular Neuts Not Reportable 03/15/18 19:36 Smudge Cells Not Reportable 03/15/18 19:36 Toxic Granulation Not Reportable 03/15/18 19:36 Toxic Vacuolation Not Reportable 03/15/18 19:36 Dohle Bodies Not Reportable 03/15/18 19:36 Pelger-Huet Anomaly Not Reportable 03/15/18 19:36 Bassem Rods Not Reportable 03/15/18 19:36 Platelet Estimate Consistent w auto 03/15/18 19:36 Clumped Platelets Not Reportable 03/15/18 19:36 Plt Clumps, EDTA Not Reportable 03/15/18 19:36 Large Platelets Not Reportable 03/15/18 19:36 Giant Platelets Not Reportable 03/15/18 19:36 Platelet Satelliting Not Reportable 03/15/18 19:36 Plt Morphology Comment Not Reportable 03/15/18 19:36 RBC Morphology Not Reportable 03/15/18 19:36 Dimorphic RBCs Not Reportable 03/15/18 19:36 Polychromasia Not Reportable 03/15/18 19:36 Hypochromasia Not Reportable 03/15/18 19:36 Poikilocytosis Not Reportable 03/15/18 19:36 Anisocytosis Not Reportable 03/15/18 19:36 Microcytosis Not Reportable 03/15/18 19:36 Macrocytosis Not Reportable 03/15/18 19:36 Spherocytes Not Reportable 03/15/18 19:36 Pappenheimer Bodies Not Reportable 03/15/18 19:36 Sickle Cells Not Reportable 03/15/18 19:36 Target Cells Not Reportable 03/15/18 19:36 Tear Drop Cells Not Reportable 03/15/18 19:36 Ovalocytes Not Reportable 03/15/18 19:36 Helmet Cells Not Reportable 03/15/18 19:36 [place] Bodies Not Reportable 03/15/18 19:36 [place] Rings Not Reportable 03/15/18 19:36 Benny Cells Not Reportable 03/15/18 19:36 Bite Cells Not Reportable 03/15/18 19:36 Crenated Cell Not Reportable 03/15/18 19:36 Elliptocytes Not Reportable 03/15/18 19:36 Acanthocytes (Spur) Not Reportable 03/15/18 19:36 Rouleaux Not Reportable 03/15/18 19:36 Hemoglobin C Crystals Not Reportable 03/15/18 19:36 Schistocytes Not Reportable 03/15/18 19:36 Malaria parasites Not Reportable 03/15/18 19:36 Rubens Bodies Not Reportable 03/15/18 19:36 Hem Pathologist Commnt No 03/15/18 19:36 Sodium 141 mmol/L (137-145) 03/15/18 19:36 Potassium 4.0 mmol/L (3.6-5.0) 03/15/18 19:36 Chloride 96.0 mmol/L (98-107) L 03/15/18 19:36 Carbon Dioxide 31 mmol/L (22-30) H 03/15/18 19:36 Anion Gap 18 mmol/L 03/15/18 19:36 BUN 34 mg/dL (7-17) H 03/15/18 19:36 Creatinine 0.9 mg/dL (0.7-1.2) 03/15/18 19:36 Estimated GFR > 60 ml/min 03/15/18 19:36 BUN/Creatinine Ratio 38 % 03/15/18 19:36 Glucose 129 mg/dL (65-100) H 03/15/18 19:36 POC Glucose 107 (70-105) H 03/16/18 07:36 Lactic Acid 1.70 mmol/L (0.7-2.0) 03/15/18 22:06 Calcium 10.0 mg/dL (8.4-10.2) 03/15/18 19:36 Total Bilirubin 0.40 mg/dL (0.1-1.2) 03/15/18 19:36 AST 16 units/L (5-40) 03/15/18 19:36 ALT 9 units/L (7-56) 03/15/18 19:36 Alkaline Phosphatase 70 units/L (35-129) 03/15/18 19:36 Ammonia 19.0 umol/L (25-60) L 03/15/18 21:20 Troponin T 0.029 ng/mL (0.00-0.029) 03/16/18 05:31 Total Protein 7.8 g/dL (6.3-8.2) 03/15/18 19:36 Albumin 3.2 g/dL (3.9-5) L 03/15/18 19:36 Albumin/Globulin Ratio 0.7 % 03/15/18 19:36 Triglycerides 151 mg/dL (2-149) H 03/15/18 19:40 Cholesterol 137 mg/dL (50-199) 03/15/18 19:40 LDL Cholesterol Direct 72 mg/dL (50-130) 03/15/18 19:40 HDL Cholesterol 41 mg/dL (40-59) 03/15/18 19:40 Cholesterol/HDL Ratio 3.34 % 03/15/18 19:40 TSH 4.010 mlU/mL (0.270-4.200) 03/15/18 19:36 Urine Color Yellow (Yellow) 03/15/18 19:59 Urine Turbidity Clear (Clear) 03/15/18 19:59 Urine pH 8.0 (5.0-7.0) H 03/15/18 19:59 Ur Specific [place] 1.015 (1.003-1.030) 03/15/18 19:59 Urine Protein <15 mg/dl mg/dL (Negative) 03/15/18 19:59 Urine Glucose (UA) Neg mg/dL (Negative) 03/15/18 19:59 Urine Ketones Neg mg/dL (Negative) 03/15/18 19:59 Urine Blood Neg (Negative) 03/15/18 19:59 Urine Nitrite Neg (Negative) 03/15/18 19:59 Urine Bilirubin Neg (Negative) 03/15/18 19:59 Urine Urobilinogen < 2.0 mg/dL (<2.0) 03/15/18 19:59 Ur Leukocyte Esterase Neg (Negative) 03/15/18 19:59 Urine WBC (Auto) < 1.0 /HPF (0.0-6.0) 03/15/18 19:59 Urine RBC (Auto) 3.0 /HPF (0.0-6.0) 03/15/18 19:59 Urine Opiates Screen Presumptive negative 03/15/18 19:59 Urine Methadone Screen Presumptive negative 03/15/18 19:59 Ur Barbiturates Screen Presumptive negative 03/15/18 19:59 Ur Phencyclidine Scrn Presumptive negative 03/15/18 19:59 Ur Amphetamines Screen Presumptive negative 03/15/18 19:59 U Benzodiazepines Scrn Presumptive negative 03/15/18 19:59 Urine Cocaine Screen Presumptive negative 03/15/18 19:59 U Marijuana (THC) Screen Presumptive negative 03/15/18 19:59 Drugs of Abuse Note Disclamer 03/15/18 19:59 Plasma/Serum Alcohol < 0.01 % (0-0.07) 03/15/18 19:36 <CLARISSA MORRISON - Last Filed: 03/16/18 23:44> Assessment and Plan Assessment and plan: I saw and evaluated the patient. I agree with the findings and the plan of care as documented in the PA's~note, with the following corrections and additions. Hospitalist Physical - Constitutional Vitals: Temp Pulse Resp BP Pulse Ox 97.4 F L 94 H 18 191/114 96 03/16/18 19:05 03/16/18 19:16 03/16/18 19:05 03/16/18 19:05 03/16/18 19:16 Results - Labs CBC & Chem 7: 03/15/18 19:36 03/15/18 19:36 Labs: Laboratory Last Values WBC 10.5 K/mm3 (4.5-11.0) 03/15/18 19:36 RBC 3.79 M/mm3 (3.65-5.03) 03/15/18 19:36 Hgb 11.6 gm/dl (10.1-14.3) 03/15/18 19:36 Hct 36.1 % (30.3-42.9) 03/15/18 19:36 MCV 95 fl (79-97) 03/15/18 19:36 MCH 31 pg (28-32) 03/15/18 19:36 MCHC 32 % (30-34) 03/15/18 19:36 RDW 18.5 % (13.2-15.2) H 03/15/18 19:36 Plt Count 229 K/mm3 (140-440) 03/15/18 19:36 [place] % (Auto) Accounts Payable Representative 03/15/18 19:36 Add Manual Diff Complete 03/15/18 19:36 Total Counted 100 03/15/18 19:36 Seg Neuts % (Manual) 82.0 % (40.0-70.0) H 03/15/18 19:36 Band Neutrophils % 3.0 % 03/15/18 19:36 Lymphocytes % (Manual) 5.0 % (13.4-35.0) L 03/15/18 19:36 Reactive Lymphs % (Man) 0 % 03/15/18 19:36 Monocytes % (Manual) 10.0 % (0.0-7.3) H 03/15/18 19:36 Eosinophils % (Manual) 0 % (0.0-4.3) 03/15/18 19:36 Basophils % (Manual) 0 % (0.0-1.8) 03/15/18 19:36 Metamyelocytes % 0 % 03/15/18 19:36 Myelocytes % 0 % 03/15/18 19:36 Promyelocytes % 0 % 03/15/18 19:36 Blast Cells % 0 % 03/15/18 19:36 Nucleated RBC % Not Reportable 03/15/18 19:36 Seg Neutrophils # Man 8.6 K/mm3 (1.8-7.7) H 03/15/18 19:36 Band Neutrophils # 0.3 K/mm3 03/15/18 19:36 Lymphocytes # (Manual) 0.5 K/mm3 (1.2-5.4) L 03/15/18 19:36 Abs React Lymphs (Man) 0.0 K/mm3 03/15/18 19:36 Monocytes # (Manual) 1.1 K/mm3 (0.0-0.8) H 03/15/18 19:36 Eosinophils # (Manual) 0.0 K/mm3 (0.0-0.4) 03/15/18 19:36 Basophils # (Manual) 0.0 K/mm3 (0.0-0.1) 03/15/18 19:36 Metamyelocytes # 0.0 K/mm3 03/15/18 19:36 Myelocytes # 0.0 K/mm3 03/15/18 19:36 Promyelocytes # 0.0 K/mm3 03/15/18 19:36 Blast Cells # 0.0 K/mm3 03/15/18 19:36 WBC Morphology Not Reportable 03/15/18 19:36 Hypersegmented Neuts Not Reportable 03/15/18 19:36 Hyposegmented Neuts Not Reportable 03/15/18 19:36 Hypogranular Neuts Not Reportable 03/15/18 19:36 Smudge Cells Not Reportable 03/15/18 19:36 Toxic Granulation Not Reportable 03/15/18 19:36 Toxic Vacuolation Not Reportable 03/15/18 19:36 Dohle Bodies Not Reportable 03/15/18 19:36 Pelger-Huet Anomaly Not Reportable 03/15/18 19:36 Bassem Rods Not Reportable 03/15/18 19:36 Platelet Estimate Consistent w auto 03/15/18 19:36 Clumped Platelets Not Reportable 03/15/18 19:36 Plt Clumps, EDTA Not Reportable 03/15/18 19:36 Large Platelets Not Reportable 03/15/18 19:36 Giant Platelets Not Reportable 03/15/18 19:36 Platelet Satelliting Not Reportable 03/15/18 19:36 Plt Morphology Comment Not Reportable 03/15/18 19:36 RBC Morphology Not Reportable 03/15/18 19:36 Dimorphic RBCs Not Reportable 03/15/18 19:36 Polychromasia Not Reportable 03/15/18 19:36 Hypochromasia Not Reportable 03/15/18 19:36 Poikilocytosis Not Reportable 03/15/18 19:36 Anisocytosis Not Reportable 03/15/18 19:36 Microcytosis Not Reportable 03/15/18 19:36 Macrocytosis Not Reportable 03/15/18 19:36 Spherocytes Not Reportable 03/15/18 19:36 Pappenheimer Bodies Not Reportable 03/15/18 19:36 Sickle Cells Not Reportable 03/15/18 19:36 Target Cells Not Reportable 03/15/18 19:36 Tear Drop Cells Not Reportable 03/15/18 19:36 Ovalocytes Not Reportable 03/15/18 19:36 Helmet Cells Not Reportable 03/15/18 19:36 [place] Bodies Not Reportable 03/15/18 19:36 [place] Rings Not Reportable 03/15/18 19:36 Benny Cells Not Reportable 03/15/18 19:36 Bite Cells Not Reportable 03/15/18 19:36 Crenated Cell Not Reportable 03/15/18 19:36 Elliptocytes Not Reportable 03/15/18 19:36 Acanthocytes (Spur) Not Reportable 03/15/18 19:36 Rouleaux Not Reportable 03/15/18 19:36 Hemoglobin C Crystals Not Reportable 03/15/18 19:36 Schistocytes Not Reportable 03/15/18 19:36 Malaria parasites Not Reportable 03/15/18 19:36 Rubens Bodies Not Reportable 03/15/18 19:36 Hem Pathologist Commnt No 03/15/18 19:36 Sodium 141 mmol/L (137-145) 03/15/18 19:36 Potassium 4.0 mmol/L (3.6-5.0) 03/15/18 19:36 Chloride 96.0 mmol/L (98-107) L 03/15/18 19:36 Carbon Dioxide 31 mmol/L (22-30) H 03/15/18 19:36 Anion Gap 18 mmol/L 03/15/18 19:36 BUN 34 mg/dL (7-17) H 03/15/18 19:36 Creatinine 0.9 mg/dL (0.7-1.2) 03/15/18 19:36 Estimated GFR > 60 ml/min 03/15/18 19:36 BUN/Creatinine Ratio 38 % 03/15/18 19:36 Glucose 129 mg/dL (65-100) H 03/15/18 19:36 POC Glucose 92 (70-105) 03/16/18 21:53 Lactic Acid 1.70 mmol/L (0.7-2.0) 03/15/18 22:06 Calcium 10.0 mg/dL (8.4-10.2) 03/15/18 19:36 Total Bilirubin 0.40 mg/dL (0.1-1.2) 03/15/18 19:36 AST 16 units/L (5-40) 03/15/18 19:36 ALT 9 units/L (7-56) 03/15/18 19:36 Alkaline Phosphatase 70 units/L (35-129) 03/15/18 19:36 Ammonia 19.0 umol/L (25-60) L 03/15/18 21:20 Troponin T 0.029 ng/mL (0.00-0.029) 03/16/18 05:31 Total Protein 7.8 g/dL (6.3-8.2) 03/15/18 19:36 Albumin 3.2 g/dL (3.9-5) L 03/15/18 19:36 Albumin/Globulin Ratio 0.7 % 03/15/18 19:36 Triglycerides 151 mg/dL (2-149) H 03/15/18 19:40 Cholesterol 137 mg/dL (50-199) 03/15/18 19:40 LDL Cholesterol Direct 72 mg/dL (50-130) 03/15/18 19:40 HDL Cholesterol 41 mg/dL (40-59) 03/15/18 19:40 Cholesterol/HDL Ratio 3.34 % 03/15/18 19:40 TSH 4.010 mlU/mL (0.270-4.200) 03/15/18 19:36 Urine Color Yellow (Yellow) 03/15/18 19:59 Urine Turbidity Clear (Clear) 03/15/18 19:59 Urine pH 8.0 (5.0-7.0) H 03/15/18 19:59 Ur Specific [place] 1.015 (1.003-1.030) 03/15/18 19:59 Urine Protein <15 mg/dl mg/dL (Negative) 03/15/18 19:59 Urine Glucose (UA) Neg mg/dL (Negative) 03/15/18 19:59 Urine Ketones Neg mg/dL (Negative) 03/15/18 19:59 Urine Blood Neg (Negative) 03/15/18 19:59 Urine Nitrite Neg (Negative) 03/15/18 19:59 Urine Bilirubin Neg (Negative) 03/15/18 19:59 Urine Urobilinogen < 2.0 mg/dL (<2.0) 03/15/18 19:59 Ur Leukocyte Esterase Neg (Negative) 03/15/18 19:59 Urine WBC (Auto) < 1.0 /HPF (0.0-6.0) 03/15/18 19:59 Urine RBC (Auto) 3.0 /HPF (0.0-6.0) 03/15/18 19:59 Urine Opiates Screen Presumptive negative 03/15/18 19:59 Urine Methadone Screen Presumptive negative 03/15/18 19:59 Ur Barbiturates Screen Presumptive negative 03/15/18 19:59 Ur Phencyclidine Scrn Presumptive negative 03/15/18 19:59 Ur Amphetamines Screen Presumptive negative 03/15/18 19:59 U Benzodiazepines Scrn Presumptive negative 03/15/18 19:59 Urine Cocaine Screen Presumptive negative 03/15/18 19:59 U Marijuana (THC) Screen Presumptive negative 03/15/18 19:59 Drugs of Abuse Note Disclamer 03/15/18 19:59 Plasma/Serum Alcohol < 0.01 % (0-0.07) 03/15/18 19:36
[2018-03-16] MEDS: LOPRESSOR PO SCH ×2 (10:20→22:33)
[2018-03-16] MEDS: HEPARIN SUB-Q SCH ×2 (10:20→22:33)
[2018-03-16] MEDS: ASPIRIN PO SCH (10:20)
--- NOTE | 2018-03-16 11:17 | Consultation ---
History of Present Illness Consult date: 03/16/18 Requesting physician: ELLIS HESTER Consult reason: atrial fibrillation, elevated troponin History of present illness: The pt is an 83-year-old female NHR with a past medical history significant for HTN, DM, GERD, breast CA, currently undergoing chemotherapy, seizures. Pt is confused and restrained on evaluation and thus HPI is obtained per the chart. Pt presented to the ED via EMS on 03/15/2018 from her penitentiary at [facility] with a complaint of some altered mental status and lethargy for one day prior to arrival. Per pt's son, who was at bedside in ED, pt has been in out of a few different hospitals, including [facility], for some similar episodes of altered mental status. At one point he said that she had a seizure, without seizure disorder, and a heart attack. He says that on the day prior to admission , he noted multiple episodes where she appeared to be in a "deep sleep" and "unresponsive to human touch." It does not sound as if she ever stopped breathing or lost her pulse but just was unresponsive. She currently only moans and is easily agitated and appears confused. Initial ECG in ED demonstrated atrial fibrillation with RVR, HR 112bpm, and pt was noted to have minimally elevated troponins and thus cardiology has been consulted. On evaluation, pt is noted to be in NSR on telemetry with HR WNL. Of note, review of [facility] records reveals that pt was recently discharged from [facility] on 01/28/2018 following a prolonged hospitalization during which she was treated for flu, aspiration, MRSA PNA, sepsis, suffered PEA arrest on 01/02, required intubation and trach, PEG. She was also noted to have SVT/ ? AFib with HR in 180s on 01/14 and was converted to sinus tach with adenosine and was placed on cardizem. Echo done 01/02/2018 showed hyperdynamic LV function with EF >70%, mild AI, mild, TR. Past History Past Medical History: diabetes, GERD, hypertension, other (breast cancer status post radiation, on current chemotherapy) Past Surgical History: Other (breast surgery, recent trach ) Social history: other (unable to obtain ) Family history: other (could not be obtained due to altered mental status) Medications and Allergies Allergies Allergy/AdvReac Type Severity Reaction Status Date / Time Iodinated Contrast- Oral and Allergy Unknown Verified 10/09/17 14:39 IV Dye Sulfa (Sulfonamide Allergy Hives Verified 10/09/17 14:39 Antibiotics) Home Medications Medication Instructions Recorded Confirmed Last Taken Type Anastrozole 1 mg PO DAILY 05/09/17 10/09/17 10/14/17 07:00 History Bisoprolol [Zebeta] 5 mg PO DAILY 05/09/17 10/09/17 10/14/17 07:00 History Diltiazem Xt [Taztia Xt] 300 mg PO DAILY 05/09/17 10/09/17 10/14/17 07:00 History Enalapril Maleate [Vasotec] 10 mg PO DAILY 05/09/17 10/09/17 10/14/17 07:00 History Lansoprazole 30 mg PO DAILY 05/09/17 10/09/17 10/14/17 07:00 History Potassium Chloride [Klor-Con 10] 10 meq PO DAILY 06/06/17 10/14/17 10/13/17 History Bimatoprost 0.01%(Nf) [Lumigan 1 drop OU BID 06/11/17 10/09/17 10/14/17 07:00 History 0.01%(Nf)] Brimonidine Tartrate [Alphagan P 1 drop OU BID 06/11/17 10/09/17 10/14/17 07:00 History 0.1%] oxyCODONE /ACETAMINOPHEN [Percocet 1 tab PO Q4HR #20 tab 10/14/17 Unknown Rx 5/325] Active Meds: Active Medications Acetaminophen (Tylenol) 650 mg PO Q4H PRN PRN Reason: Pain MILD(1-3)/Fever >100.5/RASHEED Aspirin (Aspirin) 325 mg PO QDAY [facility] Last Admin: 03/16/18 10:20 Dose: 325 mg Dextrose (D50w (25gm) Syringe) 50 ml IV PRN PRN PRN Reason: Hypoglycemia Heparin Sodium (Porcine) (Heparin) 5,000 unit SUB-Q Q12HR [facility] Last Admin: 03/16/18 10:20 Dose: 5,000 unit Sodium Chloride (Nacl 0.9% 1000 Ml) 1,000 mls @ 100 mls/hr IV DIRECT [facility] Last Admin: 03/16/18 03:30 Dose: 100 mls/hr Insulin Human Lispro (Humalog) 0 unit SUB-Q ACHS [facility]AV[facility]; Protocol Last Admin: 03/16/18 08:33 Dose: 3 unit Lorazepam (Ativan) 1 mg IV Q4H PRN PRN Reason: Agitation Last Admin: 03/16/18 07:00 Dose: 1 mg Metoprolol Tartrate (Lopressor) 25 mg PO BID [facility] Last Admin: 03/16/18 10:20 Dose: 25 mg Metoprolol Tartrate (Lopressor) 5 mg IV Q6H PRN PRN Reason: Tachyarrhythmias Ondansetron HCl (Zofran) 4 mg IV Q8H PRN PRN Reason: Nausea And Vomiting Sodium Chloride (Sodium Chloride Flush Syringe 10 Ml) 10 ml IV BID JAVED Sodium Chloride (Sodium Chloride Flush Syringe 10 Ml) 10 ml IV PRN PRN PRN Reason: LINE FLUSH Review of Systems ROS unobtainable: due to mental status Physical Examination Last Vital Signs Temp 98.2 F 03/16/18 02:12 Pulse 99 H 03/16/18 05:02 Resp 16 03/16/18 02:12 BP 120/73 03/16/18 02:12 Pulse Ox 99 03/16/18 02:12 General appearance: other (withdrawn, nonverbal, moaning, restrained ) HEENT: Positive: PERRL Neck: Positive: neck supple, trachea midline Cardiac: Positive: Reg Rate and Rhythm, S1/S2 Lungs: Positive: Decreased Breath Sounds Neuro: Positive: Other (withdrawn, nonverbal, moaning, restrained ) Abdomen: Positive: Soft Skin: Negative: Rash, Wound Musculoskeletal: No Fluid Collection, No Pain, Normal Range of Motion Results 03/15/18 19:36 03/15/18 19:36 Cardiac Enzymes 03/15/18 Range/Units 19:36 AST 16 (5-40) units/L Lipids 03/15/18 Range/Units 19:40 Triglycerides 151 H (2-149) mg/dL Cholesterol 137 (50-199) mg/dL HDL Cholesterol 41 (40-59) mg/dL Cholesterol/HDL Ratio 3.34 % CBC 03/15/18 Range/Units 19:36 WBC 10.5 (4.5-11.0) K/mm3 RBC 3.79 (3.65-5.03) M/mm3 Hgb 11.6 (10.1-14.3) gm/dl Hct 36.1 (30.3-42.9) % Plt Count 229 (140-440) K/mm3 Comprehensive Metabolic Panel 03/15/18 Range/Units 19:36 Sodium 141 (137-145) mmol/L Potassium 4.0 (3.6-5.0) mmol/L Chloride 96.0 L (98-107) mmol/L Carbon Dioxide 31 H (22-30) mmol/L BUN 34 H (7-17) mg/dL Creatinine 0.9 (0.7-1.2) mg/dL Glucose 129 H (65-100) mg/dL Calcium 10.0 (8.4-10.2) mg/dL AST 16 (5-40) units/L ALT 9 (7-56) units/L Alkaline Phosphatase 70 (35-129) units/L Total Protein 7.8 (6.3-8.2) g/dL Albumin 3.2 L (3.9-5) g/dL - Imaging and Cardiology Echo: report reviewed ( 01/02/2018 showed hyperdynamic LV function with EF >70%, mild AI, mild, TR. ) EKG: report reviewed, image reviewed EKG interpretations - Telemetry EKG Rhythm: Sinus Rhythm - EKG Supraventricular dysrhythmia: atrial fibrillation Assessment and Plan Assessment: AMS - head CT with NAF Atrial fibrillation with RVR --> SR; pt with questionable history of SVT/PAF per [facility] records; thyroid profile WNL Minimally elevated troponin - with downwards trend; currently nonspecific HTN DM GERD Recent h/o flu, aspiration, MRSA PNA, sepsis, s/p intubation, trach, PEG H/o PEA arrest on 01/02 Plan: Will repeat EKG to confirm conversion to NSR. No indication for repeat echo given recent echo at [facility] in 12/2017 - copy placed on chart. Pt was deemed not a candidate for systemic anticoagulation in regards to PAF per [facility] stogy roller - it is unclear per the documentation as to why she was deemed not a candidate. However, given transient episode of documented AFib and current AMS, pt is currently not a candidate for systemic AC. Continue lopressor. Can consider resuming home cardizem (home dose was 90mg Q6H ) if necessary for HR optimization. The patient has been seen in conjunction with Dr. Nieves who agrees with the assessment and plan of care.
[2018-03-16] MEDS: DILAUDID IV PRN (16:47)
[2018-03-16] MEDS: SODIUM CHLORIDE FLUSH SYRINGE 10 ML IV SCH ×2 (21:48→22:35)
[2018-03-17] MEDS: ATIVAN IV PRN ×3 (04:33→23:30)
[2018-03-17] MEDS: NACL 0.9% 1000 ML 1,000 ML IV SCH (04:34)
[2018-03-17 06:20] LABS: Hematocrit 33.6 % (30.3-42.9); Hemoglobin 11.1 gm/dl (10.1-14.3); Mean Corpuscular HGB Conc 33 % (30-34); Mean Corpuscular Hemoglobin 31 pg (28-32); Mean Corpuscular Volume 93 fl (79-97); Platelet Count 238 K/mm3 (140-440); Red Blood Count 3.61 M/mm3 (3.65-5.03)
[2018-03-17 06:46] LABS: BUN/Creatinine Ratio 30; Blood Urea Nitrogen 18 mg/dL (7-17); Calcium 9.6 mg/dL (8.4-10.2); Hemolysis Index 6
[2018-03-17] MEDS: HumaLOG SUB-Q SCH ×4 (07:30→23:31)
[2018-03-17 07:36] LABS: Band Neutrophils # (Manual) 0.1 K/mm3; Basophils % (Manual) 0 % (0.0-1.8); Total Cells Counted 100
[2018-03-17 07:37] LABS: Anisocytosis 1+; Poikilocytosis 1+; Stomatocytes 2+
[2018-03-17] MEDS: ASPIRIN PO SCH (11:09)
[2018-03-17] MEDS: DILAUDID IV PRN ×2 (11:10→17:04)
[2018-03-17] MEDS: HEPARIN SUB-Q SCH ×2 (11:10→23:29)
[2018-03-17] MEDS: LOPRESSOR PO SCH ×3 (11:11→23:29)
[2018-03-17] MEDS: SODIUM CHLORIDE FLUSH SYRINGE 10 ML IV SCH ×2 (11:12→23:31)
--- NOTE | 2018-03-17 13:03 | Progress Note ---
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 However, given transient episode of documented AFib and current AMS, pt is currently not a candidate for systemic AC. Could consider systemic AC if it is felt that pt's residential would be able to safely administer and monitor pt's status on AC. Increase lopressor to TID for more adequate HR and BP control. Can consider resuming home cardizem (home dose was 90mg Q6H) if necessary for HR optimization. The patient has been seen in conjunction with Dr. Nieves who agrees with the assessment and plan of care. Subjective Date of service: 03/17/18 Principal diagnosis: AFib Interval history: pt resting in bed, no apparent distress. nonverbal, moaning on examination. restrained. tele reviewed - pt in SR/ST with frequent PACs. Objective Last Vital Signs Temp 98.4 F 03/17/18 09:36 Pulse 101 H 03/17/18 11:11 Resp 20 03/17/18 11:10 BP 146/107 03/17/18 11:11 Pulse Ox 93 03/17/18 09:36 - Physical Examination General: Other (nonverbal) HEENT: Positive: PERRL Neck: Positive: neck supple, trachea midline Cardiac: Positive: Reg Rate and Rhythm, S1/S2 Lungs: Positive: Decreased Breath Sounds Neuro: Positive: Other (withdrawn, nonverbal, moaning, restrained ) Abdomen: Positive: Soft Skin: Negative: Rash, Wound Musculoskeletal: No Fluid Collection, No Pain, Normal Range of Motion - Labs and Meds CBC 03/17/18 Range/Units 05:43 WBC 7.1 (4.5-11.0) K/mm3 RBC 3.61 L (3.65-5.03) M/mm3 Hgb 11.1 (10.1-14.3) gm/dl Hct 33.6 (30.3-42.9) % Plt Count 238 (140-440) K/mm3 Comprehensive Metabolic Panel 03/17/18 Range/Units 05:43 Sodium 141 (137-145) mmol/L Potassium 3.2 L (3.6-5.0) mmol/L Chloride 100.3 (98-107) mmol/L Carbon Dioxide 24 D (22-30) mmol/L BUN 18 H (7-17) mg/dL Creatinine 0.6 L (0.7-1.2) mg/dL Glucose 96 (65-100) mg/dL Calcium 9.6 (8.4-10.2) mg/dL - Imaging and Cardiology EKG: report reviewed, image reviewed Echo: report reviewed ( 01/02/2018 showed hyperdynamic LV function with EF >70%, mild AI, mild, TR. ) - Telemetry EKG Rhythm: Sinus Rhythm
--- NOTE | 2018-03-17 17:52 | Progress Note ---
Assessment and Plan Assessment and plan: Patient is a 83 yo woman from [facility] with a history of dm type 2, p. afib, hypertension, glaucoma, breast cancer on chemotherapy, gerd, sz disorder, influenza, mrsa pneumonia AMI, s/p trach with removal and PEG who presented to ED with AMS. She was found to have afib with RVR. Atrial fibrillation with RVR Continue lopressor, TSH level is normal Cardiology consulted in the ED, will not repeat echo ( in chart) Elevated troponin, probably secondary to demand ischemia trending down, Cardiology following Acute encephalopathy, probably secondary to dementia with behavioral disturbances CT head is negative, Patient will be placed PRN Ativan SIRS, probably secondary to noninfectious cause On account of tachycardia and AMS, but tachycardia is secondary to afib Will continue to hydrate patient and monitor clinically [id number] diabetes mellitus type 2 Patient will be placed on SSI, accu cheks ACHS, A1C Hypertension Continue antihypertensives Prophylaxis DVT prophylaxis with heparin Functional quadriplegia, poa physical therapy History Interval history: Patient was seen and examined. Follow-up on current diagnosis of AMS. Overnight uneventful. Patient denies any chest pain, shortness breath, nausea/vomiting or severe headaches. Imaging, nursing note, chart, labs and old chart reviewed. Discussed with nursing. Hospitalist Physical - Physical exam Narrative exam: GEN: chronically debilated, moaning, NAD, Awake, Alert, Orientated HEENT: NCAT, EOMI, PERRL, OP dry and pasty NECK: supple, no adenopathy, no thyromegaly, no JVD CVS/HEART: irregular irregular, normal S1S2, pulses present bilaterally CHEST/LUNGS: Symmetrical chest expansion, good air entry bilaterally GI/Abdomen: soft, NTND, PEG in place good bowel sounds, no guarding or rebound /Bladder: no suprapubic tenderness, EXT/Skin: no obvious rash MSK: contracted legs Neuro: CN 2-12 grossly intact, doesn't follow commands Psych: calm - Constitutional Vitals: Temp Pulse Resp BP Pulse Ox 98.4 F 101 H 20 146/107 98 03/17/18 09:36 03/17/18 11:11 03/17/18 17:04 03/17/18 11:11 03/17/18 10:00 General appearance: Present: no acute distress Results - Labs CBC & Chem 7: 03/18/18 05:23 03/18/18 05:23 Labs: Laboratory Last Values WBC 7.1 K/mm3 (4.5-11.0) 03/17/18 05:43 RBC 3.61 M/mm3 (3.65-5.03) L 03/17/18 05:43 Hgb 11.1 gm/dl (10.1-14.3) 03/17/18 05:43 Hct 33.6 % (30.3-42.9) 03/17/18 05:43 MCV 93 fl (79-97) 03/17/18 05:43 MCH 31 pg (28-32) 03/17/18 05:43 MCHC 33 % (30-34) 03/17/18 05:43 RDW 18.0 % (13.2-15.2) H 03/17/18 05:43 Plt Count 238 K/mm3 (140-440) 03/17/18 05:43 [place] % (Auto) Business Services Manager 03/17/18 05:43 Add Manual Diff Complete 03/17/18 05:43 Total Counted 100 03/17/18 05:43 Seg Neuts % (Manual) 70.0 % (40.0-70.0) 03/17/18 05:43 Band Neutrophils % 2.0 % 03/17/18 05:43 Lymphocytes % (Manual) 22.0 % (13.4-35.0) 03/17/18 05:43 Reactive Lymphs % (Man) 0 % 03/17/18 05:43 Monocytes % (Manual) 4.0 % (0.0-7.3) 03/17/18 05:43 Eosinophils % (Manual) 1.0 % (0.0-4.3) 03/17/18 05:43 Basophils % (Manual) 0 % (0.0-1.8) 03/17/18 05:43 Metamyelocytes % 1.0 % 03/17/18 05:43 Myelocytes % 0 % 03/17/18 05:43 Promyelocytes % 0 % 03/17/18 05:43 Blast Cells % 0 % 03/17/18 05:43 Nucleated RBC % Not Reportable 03/17/18 05:43 Seg Neutrophils # Man 5.0 K/mm3 (1.8-7.7) 03/17/18 05:43 Band Neutrophils # 0.1 K/mm3 03/17/18 05:43 Lymphocytes # (Manual) 1.6 K/mm3 (1.2-5.4) 03/17/18 05:43 Abs React Lymphs (Man) 0.0 K/mm3 03/17/18 05:43 Monocytes # (Manual) 0.3 K/mm3 (0.0-0.8) 03/17/18 05:43 Eosinophils # (Manual) 0.1 K/mm3 (0.0-0.4) 03/17/18 05:43 Basophils # (Manual) 0.0 K/mm3 (0.0-0.1) 03/17/18 05:43 Metamyelocytes # 0.1 K/mm3 03/17/18 05:43 Myelocytes # 0.0 K/mm3 03/17/18 05:43 Promyelocytes # 0.0 K/mm3 03/17/18 05:43 Blast Cells # 0.0 K/mm3 03/17/18 05:43 WBC Morphology Not Reportable 03/17/18 05:43 Hypersegmented Neuts Not Reportable 03/17/18 05:43 Hyposegmented Neuts Not Reportable 03/17/18 05:43 Hypogranular Neuts Not Reportable 03/17/18 05:43 Smudge Cells Not Reportable 03/17/18 05:43 Toxic Granulation Not Reportable 03/17/18 05:43 Toxic Vacuolation Not Reportable 03/17/18 05:43 Dohle Bodies Not Reportable 03/17/18 05:43 Pelger-Huet Anomaly Not Reportable 03/17/18 05:43 Bassem Rods Not Reportable 03/17/18 05:43 Platelet Estimate Appears normal 03/17/18 05:43 Clumped Platelets Not Reportable 03/17/18 05:43 Plt Clumps, EDTA Not Reportable 03/17/18 05:43 Large Platelets Not Reportable 03/17/18 05:43 Giant Platelets Not Reportable 03/17/18 05:43 Platelet Satelliting Not Reportable 03/17/18 05:43 Plt Morphology Comment Not Reportable 03/17/18 05:43 RBC Morphology Not Reportable 03/17/18 05:43 Dimorphic RBCs Not Reportable 03/17/18 05:43 Polychromasia Not Reportable 03/17/18 05:43 Hypochromasia Not Reportable 03/17/18 05:43 Poikilocytosis 1+ 03/17/18 05:43 Anisocytosis 1+ 03/17/18 05:43 Microcytosis Few 03/17/18 05:43 Macrocytosis Not Reportable 03/17/18 05:43 Spherocytes Not Reportable 03/17/18 05:43 Pappenheimer Bodies Not Reportable 03/17/18 05:43 Sickle Cells Not Reportable 03/17/18 05:43 Target Cells Not Reportable 03/17/18 05:43 Tear Drop Cells Not Reportable 03/17/18 05:43 Ovalocytes Not Reportable 03/17/18 05:43 Stomatocytes 2+ 03/17/18 05:43 Helmet Cells Not Reportable 03/17/18 05:43 [place] Bodies Not Reportable 03/17/18 05:43 [place] Rings Not Reportable 03/17/18 05:43 Benny Cells Not Reportable 03/17/18 05:43 Bite Cells Not Reportable 03/17/18 05:43 Crenated Cell Not Reportable 03/17/18 05:43 Elliptocytes Not Reportable 03/17/18 05:43 Acanthocytes (Spur) Not Reportable 03/17/18 05:43 Rouleaux Not Reportable 03/17/18 05:43 Hemoglobin C Crystals Not Reportable 03/17/18 05:43 Schistocytes Not Reportable 03/17/18 05:43 Malaria parasites Not Reportable 03/17/18 05:43 Rubens Bodies Not Reportable 03/17/18 05:43 Hem Pathologist Commnt No 03/17/18 05:43 Sodium 141 mmol/L (137-145) 03/17/18 05:43 Potassium 3.2 mmol/L (3.6-5.0) L 03/17/18 05:43 Chloride 100.3 mmol/L (98-107) 03/17/18 05:43 Carbon Dioxide 24 mmol/L (22-30) D 03/17/18 05:43 Anion Gap 20 mmol/L 03/17/18 05:43 BUN 18 mg/dL (7-17) H 03/17/18 05:43 Creatinine 0.6 mg/dL (0.7-1.2) L 03/17/18 05:43 Estimated GFR > 60 ml/min 03/17/18 05:43 BUN/Creatinine Ratio 30 % 03/17/18 05:43 Glucose 96 mg/dL (65-100) 03/17/18 05:43 POC Glucose 86 (70-105) 03/17/18 16:09 Hemoglobin A1c 6.0 % (4-6) 03/17/18 05:43 Lactic Acid 1.70 mmol/L (0.7-2.0) 03/15/18 22:06 Calcium 9.6 mg/dL (8.4-10.2) 03/17/18 05:43 Total Bilirubin 0.40 mg/dL (0.1-1.2) 03/15/18 19:36 AST 16 units/L (5-40) 03/15/18 19:36 ALT 9 units/L (7-56) 03/15/18 19:36 Alkaline Phosphatase 70 units/L (35-129) 03/15/18 19:36 Ammonia 19.0 umol/L (25-60) L 03/15/18 21:20 Troponin T 0.029 ng/mL (0.00-0.029) 03/16/18 05:31 Total Protein 7.8 g/dL (6.3-8.2) 03/15/18 19:36 Albumin 3.2 g/dL (3.9-5) L 03/15/18 19:36 Albumin/Globulin Ratio 0.7 % 03/15/18 19:36 Triglycerides 151 mg/dL (2-149) H 03/15/18 19:40 Cholesterol 137 mg/dL (50-199) 03/15/18 19:40 LDL Cholesterol Direct 72 mg/dL (50-130) 03/15/18 19:40 HDL Cholesterol 41 mg/dL (40-59) 03/15/18 19:40 Cholesterol/HDL Ratio 3.34 % 03/15/18 19:40 TSH 4.010 mlU/mL (0.270-4.200) 03/15/18 19:36 Urine Color Yellow (Yellow) 03/15/18 19:59 Urine Turbidity Clear (Clear) 03/15/18 19:59 Urine pH 8.0 (5.0-7.0) H 03/15/18 19:59 Ur Specific [place] 1.015 (1.003-1.030) 03/15/18 19:59 Urine Protein <15 mg/dl mg/dL (Negative) 03/15/18 19:59 Urine Glucose (UA) Neg mg/dL (Negative) 03/15/18 19:59 Urine Ketones Neg mg/dL (Negative) 03/15/18 19:59 Urine Blood Neg (Negative) 03/15/18 19:59 Urine Nitrite Neg (Negative) 03/15/18 19:59 Urine Bilirubin Neg (Negative) 03/15/18 19:59 Urine Urobilinogen < 2.0 mg/dL (<2.0) 03/15/18 19:59 Ur Leukocyte Esterase Neg (Negative) 03/15/18 19:59 Urine WBC (Auto) < 1.0 /HPF (0.0-6.0) 03/15/18 19:59 Urine RBC (Auto) 3.0 /HPF (0.0-6.0) 03/15/18 19:59 Urine Opiates Screen Presumptive negative 03/15/18 19:59 Urine Methadone Screen Presumptive negative 03/15/18 19:59 Ur Barbiturates Screen Presumptive negative 03/15/18 19:59 Ur Phencyclidine Scrn Presumptive negative 03/15/18 19:59 Ur Amphetamines Screen Presumptive negative 03/15/18 19:59 U Benzodiazepines Scrn Presumptive negative 03/15/18 19:59 Urine Cocaine Screen Presumptive negative 03/15/18 19:59 U Marijuana (THC) Screen Presumptive negative 03/15/18 19:59 Drugs of Abuse Note Disclamer 03/15/18 19:59 Plasma/Serum Alcohol < 0.01 % (0-0.07) 03/15/18 19:36
[2018-03-17] MEDS ORDERED: POTASSIUM CHLORIDE FEEDTUBE ONE ×2 (17:54→23:45)
[2018-03-18 06:15] LABS: Hematocrit 33.9 % (30.3-42.9); Hemoglobin 11.4 gm/dl (10.1-14.3); Mean Corpuscular HGB Conc 34 % (30-34); Mean Corpuscular Hemoglobin 31 pg (28-32); Mean Corpuscular Volume 94 fl (79-97); Platelet Count 272 K/mm3 (140-440); Red Blood Count 3.62 M/mm3 (3.65-5.03)
[2018-03-18 06:33] LABS: BUN/Creatinine Ratio 31; Blood Urea Nitrogen 22 mg/dL (7-17); Hemolysis Index 1
[2018-03-18] MEDS: HumaLOG SUB-Q SCH ×3 (07:30→17:19)
[2018-03-18] MEDS: LOPRESSOR PO SCH ×3 (08:00→21:46)
--- NOTE | 2018-03-18 13:59 | Progress Note ---
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 However, given transient episode of documented AFib and current AMS, pt is currently not a candidate for systemic AC. Could consider systemic AC if it is felt that pt's chcf would be able to safely administer and monitor pt's status on AC. Currently stable cardiac status. Nothing further to add from cardiac perspective at this time. Will follow on as needed basis. The patient has been seen in conjunction with Dr. Nieves who agrees with the assessment and plan of care. Subjective Date of service: 03/18/18 Principal diagnosis: AFib Interval history: pt resting in bed, no apparent distress. nonverbal, moaning on examination. restrained. tele reviewed - pt in SR/ST with frequent PACs. Objective Last Vital Signs Temp 98.4 F 03/18/18 05:56 Pulse 96 H 03/18/18 13:00 Resp 20 03/18/18 10:00 BP 100/64 03/18/18 05:56 Pulse Ox 99 03/18/18 10:00 - Physical Examination General: Other (nonverbal) HEENT: Positive: PERRL Neck: Positive: neck supple, trachea midline Cardiac: Positive: Reg Rate and Rhythm, S1/S2 Lungs: Positive: Decreased Breath Sounds Neuro: Positive: Other (withdrawn, nonverbal, moaning, restrained ) Abdomen: Positive: Soft Skin: Negative: Rash, Wound Musculoskeletal: No Fluid Collection, No Pain, Normal Range of Motion - Labs and Meds CBC 03/18/18 Range/Units 05:23 WBC 6.4 (4.5-11.0) K/mm3 RBC 3.62 L (3.65-5.03) M/mm3 Hgb 11.4 (10.1-14.3) gm/dl Hct 33.9 (30.3-42.9) % Plt Count 272 (140-440) K/mm3 Comprehensive Metabolic Panel 03/18/18 Range/Units 05:23 Sodium 142 (137-145) mmol/L Potassium 3.9 D (3.6-5.0) mmol/L Chloride 101.9 (98-107) mmol/L Carbon Dioxide 24 (22-30) mmol/L BUN 22 H (7-17) mg/dL Creatinine 0.7 (0.7-1.2) mg/dL Glucose 86 (65-100) mg/dL Calcium 10.0 (8.4-10.2) mg/dL - Imaging and Cardiology EKG: report reviewed, image reviewed Echo: report reviewed ( 01/02/2018 showed hyperdynamic LV function with EF >70%, mild AI, mild, TR. ) - Telemetry EKG Rhythm: Sinus Rhythm
[2018-03-18] MEDS: ASPIRIN PO SCH (14:59)
[2018-03-18] MEDS: SODIUM CHLORIDE FLUSH SYRINGE 10 ML IV SCH (14:59)
[2018-03-18] MEDS ORDERED: SODIUM BICARBONATE FEEDTUBE PRN (15:00)
[2018-03-18] MEDS ORDERED: PANCREAZE DR 10,500 UNIT FEEDTUBE PRN (15:00)
[2018-03-18] MEDS ORDERED: SIMPLE SYRUP FEEDTUBE PRN ×2 (15:00)
[2018-03-18] MEDS: HEPARIN SUB-Q SCH ×2 (15:03→21:46)
--- NOTE | 2018-03-18 22:26 | Progress Note ---
Assessment and Plan Assessment and plan: Patient is a 83 yo woman from [facility] with a history of dm type 2, p. afib, hypertension, glaucoma, breast cancer on chemotherapy, gerd, sz disorder, influenza, mrsa pneumonia AMI, s/p trach with removal and PEG who presented to ED with AMS. She was found to have afib with RVR. Atrial fibrillation with RVR Continue lopressor, TSH level is normal Cardiology consulted in the ED, will not repeat echo ( in chart) Elevated troponin, probably secondary to demand ischemia trending down, Cardiology following Acute encephalopathy, probably secondary to dementia with behavioral disturbances CT head is negative, Patient will be placed PRN Ativan SIRS, probably secondary to noninfectious cause On account of tachycardia and AMS, but tachycardia is secondary to afib Will continue to hydrate patient and monitor clinically [id number] diabetes mellitus type 2 Patient will be placed on SSI, accu cheks ACHS, A1C Hypertension Continue antihypertensives Prophylaxis DVT prophylaxis with heparin Functional quadriplegia, poa physical therapy 03/18/18: d/w son Ja (only biologic child), his mother has been in out of a few different hospitals, including [facility], then [facility] for 3- 4 months. She stopped walking and just moans in pains. He wants the PEG tube removed because he thinks it is the source of the pains. Ordered speech therapy/pt/ot. He doesn't want his mother to go back to the [place] (she has been there x 23 days and he feels she has plateau there). Ja states, much support at home including her who is a doctor. Will setup home health then possible d/c in 1-2 days. History Interval history: Patient was seen and examined. Follow-up on current diagnosis of AMS. Overnight uneventful. Patient denies any chest pain, shortness breath, nausea/vomiting or severe headaches. Imaging, nursing note, chart, labs and old chart reviewed. Discussed with nursing and Son, Ja Arango at bedside. Hospitalist Physical - Physical exam Narrative exam: GEN: chronically debilated, moaning, NAD, Awake, Alert, Orientated HEENT: NCAT, EOMI, PERRL, OP dry and pasty NECK: supple, no adenopathy, no thyromegaly, no JVD CVS/HEART: irregular irregular, normal S1S2, pulses present bilaterally CHEST/LUNGS: Symmetrical chest expansion, good air entry bilaterally GI/Abdomen: soft, NTND, PEG in place good bowel sounds, no guarding or rebound /Bladder: no suprapubic tenderness, EXT/Skin: no obvious rash MSK: contracted legs Neuro: CN 2-12 grossly intact, doesn't follow commands Psych: calm - Constitutional Vitals: Temp Pulse Resp BP Pulse Ox 98.3 F 98 H 22 155/100 100 03/18/18 19:32 03/18/18 21:46 03/18/18 19:32 03/18/18 21:46 03/18/18 19:32 General appearance: Present: no acute distress Results - Labs CBC & Chem 7: 03/18/18 05:23 03/18/18 05:23 Labs: Laboratory Last Values WBC 6.4 K/mm3 (4.5-11.0) 03/18/18 05:23 RBC 3.62 M/mm3 (3.65-5.03) L 03/18/18 05:23 Hgb 11.4 gm/dl (10.1-14.3) 03/18/18 05:23 Hct 33.9 % (30.3-42.9) 03/18/18 05:23 MCV 94 fl (79-97) 03/18/18 05:23 MCH 31 pg (28-32) 03/18/18 05:23 MCHC 34 % (30-34) 03/18/18 05:23 RDW 18.0 % (13.2-15.2) H 03/18/18 05:23 Plt Count 272 K/mm3 (140-440) 03/18/18 05:23 [place] % (Auto) Reporting Developer 03/17/18 05:43 Add Manual Diff Complete 03/17/18 05:43 Total Counted 100 03/17/18 05:43 Seg Neuts % (Manual) 70.0 % (40.0-70.0) 03/17/18 05:43 Band Neutrophils % 2.0 % 03/17/18 05:43 Lymphocytes % (Manual) 22.0 % (13.4-35.0) 03/17/18 05:43 Reactive Lymphs % (Man) 0 % 03/17/18 05:43 Monocytes % (Manual) 4.0 % (0.0-7.3) 03/17/18 05:43 Eosinophils % (Manual) 1.0 % (0.0-4.3) 03/17/18 05:43 Basophils % (Manual) 0 % (0.0-1.8) 03/17/18 05:43 Metamyelocytes % 1.0 % 03/17/18 05:43 Myelocytes % 0 % 03/17/18 05:43 Promyelocytes % 0 % 03/17/18 05:43 Blast Cells % 0 % 03/17/18 05:43 Nucleated RBC % Not Reportable 03/17/18 05:43 Seg Neutrophils # Man 5.0 K/mm3 (1.8-7.7) 03/17/18 05:43 Band Neutrophils # 0.1 K/mm3 03/17/18 05:43 Lymphocytes # (Manual) 1.6 K/mm3 (1.2-5.4) 03/17/18 05:43 Abs React Lymphs (Man) 0.0 K/mm3 03/17/18 05:43 Monocytes # (Manual) 0.3 K/mm3 (0.0-0.8) 03/17/18 05:43 Eosinophils # (Manual) 0.1 K/mm3 (0.0-0.4) 03/17/18 05:43 Basophils # (Manual) 0.0 K/mm3 (0.0-0.1) 03/17/18 05:43 Metamyelocytes # 0.1 K/mm3 03/17/18 05:43 Myelocytes # 0.0 K/mm3 03/17/18 05:43 Promyelocytes # 0.0 K/mm3 03/17/18 05:43 Blast Cells # 0.0 K/mm3 03/17/18 05:43 WBC Morphology Not Reportable 03/17/18 05:43 Hypersegmented Neuts Not Reportable 03/17/18 05:43 Hyposegmented Neuts Not Reportable 03/17/18 05:43 Hypogranular Neuts Not Reportable 03/17/18 05:43 Smudge Cells Not Reportable 03/17/18 05:43 Toxic Granulation Not Reportable 03/17/18 05:43 Toxic Vacuolation Not Reportable 03/17/18 05:43 Dohle Bodies Not Reportable 03/17/18 05:43 Pelger-Huet Anomaly Not Reportable 03/17/18 05:43 Bassem Rods Not Reportable 03/17/18 05:43 Platelet Estimate Appears normal 03/17/18 05:43 Clumped Platelets Not Reportable 03/17/18 05:43 Plt Clumps, EDTA Not Reportable 03/17/18 05:43 Large Platelets Not Reportable 03/17/18 05:43 Giant Platelets Not Reportable 03/17/18 05:43 Platelet Satelliting Not Reportable 03/17/18 05:43 Plt Morphology Comment Not Reportable 03/17/18 05:43 RBC Morphology Not Reportable 03/17/18 05:43 Dimorphic RBCs Not Reportable 03/17/18 05:43 Polychromasia Not Reportable 03/17/18 05:43 Hypochromasia Not Reportable 03/17/18 05:43 Poikilocytosis 1+ 03/17/18 05:43 Anisocytosis 1+ 03/17/18 05:43 Microcytosis Few 03/17/18 05:43 Macrocytosis Not Reportable 03/17/18 05:43 Spherocytes Not Reportable 03/17/18 05:43 Pappenheimer Bodies Not Reportable 03/17/18 05:43 Sickle Cells Not Reportable 03/17/18 05:43 Target Cells Not Reportable 03/17/18 05:43 Tear Drop Cells Not Reportable 03/17/18 05:43 Ovalocytes Not Reportable 03/17/18 05:43 Stomatocytes 2+ 03/17/18 05:43 Helmet Cells Not Reportable 03/17/18 05:43 [place] Bodies Not Reportable 03/17/18 05:43 [place] Rings Not Reportable 03/17/18 05:43 [place] Cells Not Reportable 03/17/18 05:43 Bite Cells Not Reportable 03/17/18 05:43 Crenated Cell Not Reportable 03/17/18 05:43 Elliptocytes Not Reportable 03/17/18 05:43 Acanthocytes (Spur) Not Reportable 03/17/18 05:43 Rouleaux Not Reportable 03/17/18 05:43 Hemoglobin C Crystals Not Reportable 03/17/18 05:43 Schistocytes Not Reportable 03/17/18 05:43 Malaria parasites Not Reportable 03/17/18 05:43 Rubens Bodies Not Reportable 03/17/18 05:43 Hem Pathologist Commnt No 03/17/18 05:43 Sodium 142 mmol/L (137-145) 03/18/18 05:23 Potassium 3.9 mmol/L (3.6-5.0) D 03/18/18 05:23 Chloride 101.9 mmol/L (98-107) 03/18/18 05:23 Carbon Dioxide 24 mmol/L (22-30) 03/18/18 05:23 Anion Gap 20 mmol/L 03/18/18 05:23 BUN 22 mg/dL (7-17) H 03/18/18 05:23 Creatinine 0.7 mg/dL (0.7-1.2) 03/18/18 05:23 Estimated GFR > 60 ml/min 03/18/18 05:23 BUN/Creatinine Ratio 31 % 03/18/18 05:23 Glucose 86 mg/dL (65-100) 03/18/18 05:23 POC Glucose 101 (70-105) 03/18/18 16:28 Hemoglobin A1c 6.0 % (4-6) 03/17/18 05:43 Lactic Acid 1.70 mmol/L (0.7-2.0) 03/15/18 22:06 Calcium 10.0 mg/dL (8.4-10.2) 03/18/18 05:23 Magnesium 1.90 mg/dL (1.7-2.3) 03/18/18 05:23 Total Bilirubin 0.40 mg/dL (0.1-1.2) 03/15/18 19:36 AST 16 units/L (5-40) 03/15/18 19:36 ALT 9 units/L (7-56) 03/15/18 19:36 Alkaline Phosphatase 70 units/L (35-129) 03/15/18 19:36 Ammonia 19.0 umol/L (25-60) L 03/15/18 21:20 Troponin T 0.029 ng/mL (0.00-0.029) 03/16/18 05:31 Total Protein 7.8 g/dL (6.3-8.2) 03/15/18 19:36 Albumin 3.2 g/dL (3.9-5) L 03/15/18 19:36 Albumin/Globulin Ratio 0.7 % 03/15/18 19:36 Triglycerides 151 mg/dL (2-149) H 03/15/18 19:40 Cholesterol 137 mg/dL (50-199) 03/15/18 19:40 LDL Cholesterol Direct 72 mg/dL (50-130) 03/15/18 19:40 HDL Cholesterol 41 mg/dL (40-59) 03/15/18 19:40 Cholesterol/HDL Ratio 3.34 % 03/15/18 19:40 TSH 4.010 mlU/mL (0.270-4.200) 03/15/18 19:36 Urine Color Yellow (Yellow) 03/15/18 19:59 Urine Turbidity Clear (Clear) 03/15/18 19:59 Urine pH 8.0 (5.0-7.0) H 03/15/18 19:59 Ur Specific [place] 1.015 (1.003-1.030) 03/15/18 19:59 Urine Protein <15 mg/dl mg/dL (Negative) 03/15/18 19:59 Urine Glucose (UA) Neg mg/dL (Negative) 03/15/18 19:59 Urine Ketones Neg mg/dL (Negative) 03/15/18 19:59 Urine Blood Neg (Negative) 03/15/18 19:59 Urine Nitrite Neg (Negative) 03/15/18 19:59 Urine Bilirubin Neg (Negative) 03/15/18 19:59 Urine Urobilinogen < 2.0 mg/dL (<2.0) 03/15/18 19:59 Ur Leukocyte Esterase Neg (Negative) 03/15/18 19:59 Urine WBC (Auto) < 1.0 /HPF (0.0-6.0) 03/15/18 19:59 Urine RBC (Auto) 3.0 /HPF (0.0-6.0) 03/15/18 19:59 Urine Opiates Screen Presumptive negative 03/15/18 19:59 Urine Methadone Screen Presumptive negative 03/15/18 19:59 Ur Barbiturates Screen Presumptive negative 03/15/18 19:59 Ur Phencyclidine Scrn Presumptive negative 03/15/18 19:59 Ur Amphetamines Screen Presumptive negative 03/15/18 19:59 U Benzodiazepines Scrn Presumptive negative 03/15/18 19:59 Urine Cocaine Screen Presumptive negative 03/15/18 19:59 U Marijuana (THC) Screen Presumptive negative 03/15/18 19:59 Drugs of Abuse Note Disclamer 03/15/18 19:59 Plasma/Serum Alcohol < 0.01 % (0-0.07) 03/15/18 19:36
[2018-03-19] MEDS: DUONEB *Not for PRN Use IH SCH ×5 (03:00→20:58)
[2018-03-19] MEDS: KEPPRA PO SCH ×3 (05:43→22:13)
[2018-03-19] MEDS: HumaLOG SUB-Q SCH ×5 (05:44→23:18)
[2018-03-19] MEDS: SODIUM CHLORIDE FLUSH SYRINGE 10 ML IV SCH ×3 (05:45→23:18)
[2018-03-19] MEDS: LATANOPROST 0.005% OU SCH ×2 (05:47→23:18)
[2018-03-19] MEDS ORDERED: NON-FORMULARY (Brimonidine Tartrate [Brimonidine Tartrate 0.2%] 1 DROP) OU SCH (10:00)
[2018-03-19] MEDS ORDERED: DORZOLAMIDE OU SCH (10:00)
[2018-03-19] MEDS ORDERED: TIMOLOL OU SCH (10:00)
[2018-03-19] MEDS ORDERED: ANASTROZOLE 1 MG PO SCH (10:00)
[2018-03-19] MEDS: ASPIRIN PO SCH (10:38)
[2018-03-19] MEDS: HEPARIN SUB-Q SCH ×2 (10:40→22:12)
[2018-03-19] MEDS: PEPCID PO SCH ×2 (10:40→22:13)
[2018-03-19] MEDS: LOPRESSOR PO SCH ×3 (10:40→22:26)
[2018-03-19] MEDS ORDERED: VASELINE LIP THERAPY TP PRN (13:38)
--- NOTE | 2018-03-19 15:22 | Progress Note ---
Assessment and Plan Assessment and plan: Patient is a 83 yo woman from [facility] with a history of dm type 2, p. afib, hypertension, glaucoma, breast cancer on chemotherapy, gerd, sz disorder, influenza, mrsa pneumonia AMI, s/p trach with removal and PEG who presented to ED with AMS. She was found to have afib with RVR. Atrial fibrillation with RVR Continue lopressor, TSH level is normal Cardiology consulted in the ED, will not repeat echo ( in chart) Elevated troponin, probably secondary to demand ischemia trending down, Cardiology following Acute encephalopathy, probably secondary to dementia with behavioral disturbances CT head is negative, Patient will be placed PRN Ativan SIRS, probably secondary to noninfectious cause On account of tachycardia and AMS, but tachycardia is secondary to afib Will continue to hydrate patient and monitor clinically [id number]-[id number] diabetes mellitus type 2 Patient will be placed on SSI, accu cheks ACHS, A1C Hypertension Continue antihypertensives Prophylaxis DVT prophylaxis with heparin Functional quadriplegia, poa physical therapy 03/18/18: d/w son Ja (only biologic child), his mother has been in out of a few different hospitals, including [facility], then [facility] for 3- 4 months. She stopped walking and just moans in pains. He wants the PEG tube removed because he thinks it is the source of the pains. Ordered speech therapy/pt/ot. He doesn't want his mother to go back to the [place] (she has been there x 23 days and he feels she has plateau there). Ja states, much support at home including her who is a doctor. Will setup home health then possible d/c in 1-2 days. 03/19/18: Tube feeding indefinitely, patient failed swallow evaluation. Needs hospital bed because she has quadplegia (functional type) due to advance Dementia. Will discharge tomorrow once home health setupa History Interval history: Patient was seen and examined. Follow-up on current diagnosis of AMS. Overnight uneventful. Patient denies any chest pain, shortness breath, nausea/vomiting or severe headaches. Imaging, nursing note, chart, labs and old chart reviewed. Discussed with nursing and Son, Ja Arango at bedside. Hospitalist Physical - Physical exam Narrative exam: GEN: chronically debilated, moaning, NAD, Awake, Alert, Orientated HEENT: NCAT, EOMI, PERRL, OP dry and pasty NECK: supple, no adenopathy, no thyromegaly, no JVD CVS/HEART: irregular irregular, normal S1S2, pulses present bilaterally CHEST/LUNGS: Symmetrical chest expansion, good air entry bilaterally GI/Abdomen: soft, NTND, PEG in place good bowel sounds, no guarding or rebound /Bladder: no suprapubic tenderness, EXT/Skin: no obvious rash MSK: contracted legs Neuro: CN 2-12 grossly intact, doesn't follow commands Psych: calm - Constitutional Vitals: Temp Pulse Resp BP Pulse Ox 98.5 F 110 H 20 155/97 97 03/19/18 10:46 03/19/18 10:46 03/19/18 10:46 03/19/18 10:46 03/19/18 10:46 General appearance: Present: no acute distress Results - Labs CBC & Chem 7: 03/18/18 05:23 03/18/18 05:23 Labs: Laboratory Last Values WBC 6.4 K/mm3 (4.5-11.0) 03/18/18 05:23 RBC 3.62 M/mm3 (3.65-5.03) L 03/18/18 05:23 Hgb 11.4 gm/dl (10.1-14.3) 03/18/18 05:23 Hct 33.9 % (30.3-42.9) 03/18/18 05:23 MCV 94 fl (79-97) 03/18/18 05:23 MCH 31 pg (28-32) 03/18/18 05:23 MCHC 34 % (30-34) 03/18/18 05:23 RDW 18.0 % (13.2-15.2) H 03/18/18 05:23 Plt Count 272 K/mm3 (140-440) 03/18/18 05:23 [place] % (Auto) Religious Ritual Slaughterer 03/17/18 05:43 Add Manual Diff Complete 03/17/18 05:43 Total Counted 100 03/17/18 05:43 Seg Neuts % (Manual) 70.0 % (40.0-70.0) 03/17/18 05:43 Band Neutrophils % 2.0 % 03/17/18 05:43 Lymphocytes % (Manual) 22.0 % (13.4-35.0) 03/17/18 05:43 Reactive Lymphs % (Man) 0 % 03/17/18 05:43 Monocytes % (Manual) 4.0 % (0.0-7.3) 03/17/18 05:43 Eosinophils % (Manual) 1.0 % (0.0-4.3) 03/17/18 05:43 Basophils % (Manual) 0 % (0.0-1.8) 03/17/18 05:43 Metamyelocytes % 1.0 % 03/17/18 05:43 Myelocytes % 0 % 03/17/18 05:43 Promyelocytes % 0 % 03/17/18 05:43 Blast Cells % 0 % 03/17/18 05:43 Nucleated RBC % Not Reportable 03/17/18 05:43 Seg Neutrophils # Man 5.0 K/mm3 (1.8-7.7) 03/17/18 05:43 Band Neutrophils # 0.1 K/mm3 03/17/18 05:43 Lymphocytes # (Manual) 1.6 K/mm3 (1.2-5.4) 03/17/18 05:43 Abs React Lymphs (Man) 0.0 K/mm3 03/17/18 05:43 Monocytes # (Manual) 0.3 K/mm3 (0.0-0.8) 03/17/18 05:43 Eosinophils # (Manual) 0.1 K/mm3 (0.0-0.4) 03/17/18 05:43 Basophils # (Manual) 0.0 K/mm3 (0.0-0.1) 03/17/18 05:43 Metamyelocytes # 0.1 K/mm3 03/17/18 05:43 Myelocytes # 0.0 K/mm3 03/17/18 05:43 Promyelocytes # 0.0 K/mm3 03/17/18 05:43 Blast Cells # 0.0 K/mm3 03/17/18 05:43 WBC Morphology Not Reportable 03/17/18 05:43 Hypersegmented Neuts Not Reportable 03/17/18 05:43 Hyposegmented Neuts Not Reportable 03/17/18 05:43 Hypogranular Neuts Not Reportable 03/17/18 05:43 Smudge Cells Not Reportable 03/17/18 05:43 Toxic Granulation Not Reportable 03/17/18 05:43 Toxic Vacuolation Not Reportable 03/17/18 05:43 Dohle Bodies Not Reportable 03/17/18 05:43 Pelger-Huet Anomaly Not Reportable 03/17/18 05:43 Bassem Rods Not Reportable 03/17/18 05:43 Platelet Estimate Appears normal 03/17/18 05:43 Clumped Platelets Not Reportable 03/17/18 05:43 Plt Clumps, EDTA Not Reportable 03/17/18 05:43 Large Platelets Not Reportable 03/17/18 05:43 Giant Platelets Not Reportable 03/17/18 05:43 Platelet Satelliting Not Reportable 03/17/18 05:43 Plt Morphology Comment Not Reportable 03/17/18 05:43 RBC Morphology Not Reportable 03/17/18 05:43 Dimorphic RBCs Not Reportable 03/17/18 05:43 Polychromasia Not Reportable 03/17/18 05:43 Hypochromasia Not Reportable 03/17/18 05:43 Poikilocytosis 1+ 03/17/18 05:43 Anisocytosis 1+ 03/17/18 05:43 Microcytosis Few 03/17/18 05:43 Macrocytosis Not Reportable 03/17/18 05:43 Spherocytes Not Reportable 03/17/18 05:43 Pappenheimer Bodies Not Reportable 03/17/18 05:43 Sickle Cells Not Reportable 03/17/18 05:43 Target Cells Not Reportable 03/17/18 05:43 Tear Drop Cells Not Reportable 03/17/18 05:43 Ovalocytes Not Reportable 03/17/18 05:43 Stomatocytes 2+ 03/17/18 05:43 Helmet Cells Not Reportable 03/17/18 05:43 [place] Bodies Not Reportable 03/17/18 05:43 [place] Rings Not Reportable 03/17/18 05:43 Benny Cells Not Reportable 03/17/18 05:43 Bite Cells Not Reportable 03/17/18 05:43 Crenated Cell Not Reportable 03/17/18 05:43 Elliptocytes Not Reportable 03/17/18 05:43 Acanthocytes (Spur) Not Reportable 03/17/18 05:43 Rouleaux Not Reportable 03/17/18 05:43 Hemoglobin C Crystals Not Reportable 03/17/18 05:43 Schistocytes Not Reportable 03/17/18 05:43 Malaria parasites Not Reportable 03/17/18 05:43 Rubens Bodies Not Reportable 03/17/18 05:43 Hem Pathologist Commnt No 03/17/18 05:43 Sodium 142 mmol/L (137-145) 03/18/18 05:23 Potassium 3.9 mmol/L (3.6-5.0) D 03/18/18 05:23 Chloride 101.9 mmol/L (98-107) 03/18/18 05:23 Carbon Dioxide 24 mmol/L (22-30) 03/18/18 05:23 Anion Gap 20 mmol/L 03/18/18 05:23 BUN 22 mg/dL (7-17) H 03/18/18 05:23 Creatinine 0.7 mg/dL (0.7-1.2) 03/18/18 05:23 Estimated GFR > 60 ml/min 03/18/18 05:23 BUN/Creatinine Ratio 31 % 03/18/18 05:23 Glucose 86 mg/dL (65-100) 03/18/18 05:23 POC Glucose 106 (70-105) H 03/19/18 10:51 Hemoglobin A1c 6.0 % (4-6) 03/17/18 05:43 Lactic Acid 1.70 mmol/L (0.7-2.0) 03/15/18 22:06 Calcium 10.0 mg/dL (8.4-10.2) 03/18/18 05:23 Magnesium 1.90 mg/dL (1.7-2.3) 03/18/18 05:23 Total Bilirubin 0.40 mg/dL (0.1-1.2) 03/15/18 19:36 AST 16 units/L (5-40) 03/15/18 19:36 ALT 9 units/L (7-56) 03/15/18 19:36 Alkaline Phosphatase 70 units/L (35-129) 03/15/18 19:36 Ammonia 19.0 umol/L (25-60) L 03/15/18 21:20 Troponin T 0.029 ng/mL (0.00-0.029) 03/16/18 05:31 Total Protein 7.8 g/dL (6.3-8.2) 03/15/18 19:36 Albumin 3.2 g/dL (3.9-5) L 03/15/18 19:36 Albumin/Globulin Ratio 0.7 % 03/15/18 19:36 Triglycerides 151 mg/dL (2-149) H 03/15/18 19:40 Cholesterol 137 mg/dL (50-199) 03/15/18 19:40 LDL Cholesterol Direct 72 mg/dL (50-130) 03/15/18 19:40 HDL Cholesterol 41 mg/dL (40-59) 03/15/18 19:40 Cholesterol/HDL Ratio 3.34 % 03/15/18 19:40 TSH 4.010 mlU/mL (0.270-4.200) 03/15/18 19:36 Urine Color Yellow (Yellow) 03/15/18 19:59 Urine Turbidity Clear (Clear) 03/15/18 19:59 Urine pH 8.0 (5.0-7.0) H 03/15/18 19:59 Ur Specific [place] 1.015 (1.003-1.030) 03/15/18 19:59 Urine Protein <15 mg/dl mg/dL (Negative) 03/15/18 19:59 Urine Glucose (UA) Neg mg/dL (Negative) 03/15/18 19:59 Urine Ketones Neg mg/dL (Negative) 03/15/18 19:59 Urine Blood Neg (Negative) 03/15/18 19:59 Urine Nitrite Neg (Negative) 03/15/18 19:59 Urine Bilirubin Neg (Negative) 03/15/18 19:59 Urine Urobilinogen < 2.0 mg/dL (<2.0) 03/15/18 19:59 Ur Leukocyte Esterase Neg (Negative) 03/15/18 19:59 Urine WBC (Auto) < 1.0 /HPF (0.0-6.0) 03/15/18 19:59 Urine RBC (Auto) 3.0 /HPF (0.0-6.0) 03/15/18 19:59 Urine Opiates Screen Presumptive negative 03/15/18 19:59 Urine Methadone Screen Presumptive negative 03/15/18 19:59 Ur Barbiturates Screen Presumptive negative 03/15/18 19:59 Ur Phencyclidine Scrn Presumptive negative 03/15/18 19:59 Ur Amphetamines Screen Presumptive negative 03/15/18 19:59 U Benzodiazepines Scrn Presumptive negative 03/15/18 19:59 Urine Cocaine Screen Presumptive negative 03/15/18 19:59 U Marijuana (THC) Screen Presumptive negative 03/15/18 19:59 Drugs of Abuse Note Disclamer 03/15/18 19:59 Plasma/Serum Alcohol < 0.01 % (0-0.07) 03/15/18 19:36
[2018-03-19] MEDS: ATIVAN IV PRN (22:13)
[2018-03-20] MEDS: DUONEB *Not for PRN Use IH SCH ×4 (02:14→19:38)
[2018-03-20] MEDS: LOPRESSOR PO SCH ×3 (08:02→22:56)
[2018-03-20] MEDS: HumaLOG SUB-Q SCH ×2 (08:42→22:56)
[2018-03-20] MEDS: PEPCID PO SCH ×2 (10:02→22:53)
[2018-03-20] MEDS: ASPIRIN PO SCH (10:02)
[2018-03-20] MEDS: KEPPRA PO SCH ×2 (10:02→22:53)
[2018-03-20] MEDS: HEPARIN SUB-Q SCH ×2 (10:02→22:54)
--- NOTE | 2018-03-20 14:43 | Discharge Summary ---
Providers - Providers Date of Admission: 03/16/18 00:47 Date of discharge: 03/23/18 Attending physician: SHIRA THOMAS 03/16/18 08:06 Consult to Wound/ET Nurse [CONS] Routine Reason For Exam: wound eval 03/17/18 17:55 Consult to Dietitian/Nutrition [CONS] Routine Physician Instructions: Reason For Exam: Reason for Consult: Write/Manage Tube Feeding 03/18/18 13:57 Physical Therapy Evaluation and Treat [CONS] Urgent Comment: Reason For Exam: evaluate and treat Speech Therapy Evaluation and Treat [CONS] Urgent Reason For Exam: Diff Swallowing 03/18/18 13:58 Occupational Therapy Evaluate and Treat [CONS] Urgent Comment: Reason For Exam: Evaluate and Treat 03/19/18 11:08 Consult to Dietitian/Nutrition [CONS] Routine Physician Instructions: Assess nutrtn needs, initiate, modify, manage TF Reason For Exam: Reason for Consult: Write/Manage Tube Feeding Reason for Consult: Write/Manage Tube Feeding 03/19/18 11:28 Consult to Case Management [CONS] Stat Services Needed at Discharge: Other Notified:: Michell Phone number called:: [phone] Was contact made?: Yes Time called:: 11:29 Comment:: Tube feeding Set up Additional Physician Instructions: Protein Needs: 76-95g (1.2-1.5g/kg) Fluid Needs: 1 ml/kcal Diabetisource at 70 mls/hr via pump. Water flush of 100 mls q 4 hrs. Kcal 2016 Protein 101 GM Fluid 1378ML Hospitalization Condition: Stable Hospital course: Patient is a 83 yo woman from [facility] with a history of dm type 2, p. afib, hypertension, glaucoma, breast cancer on chemotherapy, gerd, sz disorder, influenza, mrsa pneumonia AMI, s/p trach with removal and PEG who presented to ED with AMS. She was found to have afib with RVR. Atrial fibrillation with RVR Continue lopressor, TSH level is normal Cardiology consulted in the ED, will not repeat echo ( in chart) Elevated troponin, probably secondary to demand ischemia trending down, Cardiology following Acute encephalopathy, probably secondary to dementia with behavioral disturbances CT head is negative, Patient will be placed PRN Ativan SIRS, probably secondary to noninfectious cause On account of tachycardia and AMS, but tachycardia is secondary to afib Will continue to hydrate patient and monitor clinically [id number] diabetes mellitus type 2 Patient will be placed on SSI, accu cheks ACHS, A1C Hypertension Continue antihypertensives Prophylaxis DVT prophylaxis with heparin Functional quadriplegia, poa physical therapy 03/18/18: d/w son Ja (only biologic child), his mother has been in out of a few different hospitals, including [facility], then [facility] for 3- 4 months. She stopped walking and just moans in pains. He wants the PEG tube removed because he thinks it is the source of the pains. Ordered speech therapy/pt/ot. He doesn't want his mother to go back to the [place] (she has been there x 23 days and he feels she has plateau there). Ja states, much support at home including her who is a doctor. Will setup home health then possible d/c in 1-2 days. 03/19/18: Tube feeding indefinitely, patient failed swallow evaluation. Needs hospital bed because she has quadplegia (functional type) due to advance Dementia. Will discharge tomorrow once home health setup 03/20/18: Waiting for insurance to approve the bed. Disposition: [id number]/[place]-06 HOME UNDER HOME HLTH Time spent for discharge: 36 minutes Core Measure Documentation - Palliative Care Palliative Care/ Comfort Measures: Not Applicable - Core Measures Any of the following diagnoses?: none - VTE Discharge Requirements Deep Vein Thrombosis/Pulmonary Embolism Present on Admission: No Has pt received <5 days of overlap therapy or INR<2.0: No Anticoagulant overlap therapy prescribed at discharge: No Contraindication No Overlap Therapy order at DC: Not Indicated Exam - Physical Exam Narrative exam: GEN: chronically debilated, moaning, NAD, Awake, Alert, Orientated HEENT: NCAT, EOMI, PERRL, OP dry and pasty NECK: supple, no adenopathy, no thyromegaly, no JVD CVS/HEART: irregular irregular, normal S1S2, pulses present bilaterally CHEST/LUNGS: Symmetrical chest expansion, good air entry bilaterally GI/Abdomen: soft, NTND, PEG in place good bowel sounds, no guarding or rebound /Bladder: no suprapubic tenderness, EXT/Skin: no obvious rash MSK: contracted legs Neuro: CN 2-12 grossly intact, doesn't follow commands Psych: calm - Constitutional Vitals: Temp Pulse Resp BP Pulse Ox 97.8 F 100 H 20 141/99 54 L 03/20/18 07:58 03/20/18 09:20 03/20/18 09:20 03/20/18 07:58 03/20/18 07:58 Plan Activity: up only with assistance, fall precautions Diet: per dietitian instruction (tube feeding only) Wound: per wound nurse instructions Special Instructions: physical therapy, occupational therapy, other Durable Medical Equipment Needed Upon Discharge: Hospital Bed Follow up with: JIMBO GAMBOA SR [Other] - 3-5 Days Forms: Accompanied Note Prescriptions: Lipase/Protease/Amylase [Mel Davis 10,500 Unit] 1 each FEEDTUBE PRN PRN #30 capsule PRN Reason: For Clogged Feeding Tube Metoprolol [Lopressor] 25 mg PO TID #90 tablet
--- NOTE | 2018-03-20 14:47 | Progress Note ---
Assessment and Plan Assessment and plan: Patient is a 83 yo woman from [facility] with a history of dm type 2, p. afib, hypertension, glaucoma, breast cancer on chemotherapy, gerd, sz disorder, influenza, mrsa pneumonia AMI, s/p trach with removal and PEG who presented to ED with AMS. She was found to have afib with RVR. Atrial fibrillation with RVR Continue lopressor, TSH level is normal Cardiology consulted in the ED, will not repeat echo ( in chart) Elevated troponin, probably secondary to demand ischemia trending down, Cardiology following Acute encephalopathy, probably secondary to dementia with behavioral disturbances CT head is negative, Patient will be placed PRN Ativan SIRS, probably secondary to noninfectious cause On account of tachycardia and AMS, but tachycardia is secondary to afib Will continue to hydrate patient and monitor clinically [id number] diabetes mellitus type 2 Patient will be placed on SSI, accu cheks ACHS, A1C Hypertension Continue antihypertensives Prophylaxis DVT prophylaxis with heparin Functional quadriplegia, poa physical therapy 03/18/18: d/w son Ja (only biologic child), his mother has been in out of a few different hospitals, including [facility], then [facility] for 3- 4 months. She stopped walking and just moans in pains. He wants the PEG tube removed because he thinks it is the source of the pains. Ordered speech therapy/pt/ot. He doesn't want his mother to go back to the [place] (she has been there x 23 days and he feels she has plateau there). aJ states, much support at home including her who is a doctor. Will setup home health then possible d/c in 1-2 days. 03/19/18: Tube feeding indefinitely, patient failed swallow evaluation. Needs hospital bed because she has quadplegia (functional type) due to advance Dementia. Will discharge tomorrow once home health setup 03/20/18: Hospital bed pending insurance approval ([place] [employer]) History Interval history: Patient was seen and examined. Follow-up on current diagnosis of AMS. Overnight uneventful. Patient denies any chest pain, shortness breath, nausea/vomiting or severe headaches. Imaging, nursing note, chart, labs and old chart reviewed. Discussed with nursing and Son, Ja Arango at bedside. Hospitalist Physical - Physical exam Narrative exam: GEN: chronically debilated, moaning, NAD, Awake, Alert, Orientated HEENT: NCAT, EOMI, PERRL, OP dry and pasty NECK: supple, no adenopathy, no thyromegaly, no JVD CVS/HEART: irregular irregular, normal S1S2, pulses present bilaterally CHEST/LUNGS: Symmetrical chest expansion, good air entry bilaterally GI/Abdomen: soft, NTND, PEG in place good bowel sounds, no guarding or rebound /Bladder: no suprapubic tenderness, EXT/Skin: no obvious rash MSK: contracted legs Neuro: CN 2-12 grossly intact, doesn't follow commands Psych: calm - Constitutional Vitals: Temp Pulse Resp BP Pulse Ox 97.8 F 100 H 20 141/99 54 L 03/20/18 07:58 03/20/18 09:20 03/20/18 09:20 03/20/18 07:58 03/20/18 07:58 General appearance: Present: no acute distress Results - Labs CBC & Chem 7: 03/18/18 05:23 03/18/18 05:23 Labs: Laboratory Last Values WBC 6.4 K/mm3 (4.5-11.0) 03/18/18 05:23 RBC 3.62 M/mm3 (3.65-5.03) L 03/18/18 05:23 Hgb 11.4 gm/dl (10.1-14.3) 03/18/18 05:23 Hct 33.9 % (30.3-42.9) 03/18/18 05:23 MCV 94 fl (79-97) 03/18/18 05:23 MCH 31 pg (28-32) 03/18/18 05:23 MCHC 34 % (30-34) 03/18/18 05:23 RDW 18.0 % (13.2-15.2) H 03/18/18 05:23 Plt Count 272 K/mm3 (140-440) 03/18/18 05:23 [place] % (Auto) Boat Laborer 03/17/18 05:43 Add Manual Diff Complete 03/17/18 05:43 Total Counted 100 03/17/18 05:43 Seg Neuts % (Manual) 70.0 % (40.0-70.0) 03/17/18 05:43 Band Neutrophils % 2.0 % 03/17/18 05:43 Lymphocytes % (Manual) 22.0 % (13.4-35.0) 03/17/18 05:43 Reactive Lymphs % (Man) 0 % 03/17/18 05:43 Monocytes % (Manual) 4.0 % (0.0-7.3) 03/17/18 05:43 Eosinophils % (Manual) 1.0 % (0.0-4.3) 03/17/18 05:43 Basophils % (Manual) 0 % (0.0-1.8) 03/17/18 05:43 Metamyelocytes % 1.0 % 03/17/18 05:43 Myelocytes % 0 % 03/17/18 05:43 Promyelocytes % 0 % 03/17/18 05:43 Blast Cells % 0 % 03/17/18 05:43 Nucleated RBC % Not Reportable 03/17/18 05:43 Seg Neutrophils # Man 5.0 K/mm3 (1.8-7.7) 03/17/18 05:43 Band Neutrophils # 0.1 K/mm3 03/17/18 05:43 Lymphocytes # (Manual) 1.6 K/mm3 (1.2-5.4) 03/17/18 05:43 Abs React Lymphs (Man) 0.0 K/mm3 03/17/18 05:43 Monocytes # (Manual) 0.3 K/mm3 (0.0-0.8) 03/17/18 05:43 Eosinophils # (Manual) 0.1 K/mm3 (0.0-0.4) 03/17/18 05:43 Basophils # (Manual) 0.0 K/mm3 (0.0-0.1) 03/17/18 05:43 Metamyelocytes # 0.1 K/mm3 03/17/18 05:43 Myelocytes # 0.0 K/mm3 03/17/18 05:43 Promyelocytes # 0.0 K/mm3 03/17/18 05:43 Blast Cells # 0.0 K/mm3 03/17/18 05:43 WBC Morphology Not Reportable 03/17/18 05:43 Hypersegmented Neuts Not Reportable 03/17/18 05:43 Hyposegmented Neuts Not Reportable 03/17/18 05:43 Hypogranular Neuts Not Reportable 03/17/18 05:43 Smudge Cells Not Reportable 03/17/18 05:43 Toxic Granulation Not Reportable 03/17/18 05:43 Toxic Vacuolation Not Reportable 03/17/18 05:43 Dohle Bodies Not Reportable 03/17/18 05:43 Pelger-Huet Anomaly Not Reportable 03/17/18 05:43 Bassem Rods Not Reportable 03/17/18 05:43 Platelet Estimate Appears normal 03/17/18 05:43 Clumped Platelets Not Reportable 03/17/18 05:43 Plt Clumps, EDTA Not Reportable 03/17/18 05:43 Large Platelets Not Reportable 03/17/18 05:43 Giant Platelets Not Reportable 03/17/18 05:43 Platelet Satelliting Not Reportable 03/17/18 05:43 Plt Morphology Comment Not Reportable 03/17/18 05:43 RBC Morphology Not Reportable 03/17/18 05:43 Dimorphic RBCs Not Reportable 03/17/18 05:43 Polychromasia Not Reportable 03/17/18 05:43 Hypochromasia Not Reportable 03/17/18 05:43 Poikilocytosis 1+ 03/17/18 05:43 Anisocytosis 1+ 03/17/18 05:43 Microcytosis Few 03/17/18 05:43 Macrocytosis Not Reportable 03/17/18 05:43 Spherocytes Not Reportable 03/17/18 05:43 Pappenheimer Bodies Not Reportable 03/17/18 05:43 Sickle Cells Not Reportable 03/17/18 05:43 Target Cells Not Reportable 03/17/18 05:43 Tear Drop Cells Not Reportable 03/17/18 05:43 Ovalocytes Not Reportable 03/17/18 05:43 Stomatocytes 2+ 03/17/18 05:43 Helmet Cells Not Reportable 03/17/18 05:43 [place] Bodies Not Reportable 03/17/18 05:43 [place] Rings Not Reportable 03/17/18 05:43 [place] Cells Not Reportable 03/17/18 05:43 Bite Cells Not Reportable 03/17/18 05:43 Crenated Cell Not Reportable 03/17/18 05:43 Elliptocytes Not Reportable 03/17/18 05:43 Acanthocytes (Spur) Not Reportable 03/17/18 05:43 Rouleaux Not Reportable 03/17/18 05:43 Hemoglobin C Crystals Not Reportable 03/17/18 05:43 Schistocytes Not Reportable 03/17/18 05:43 Malaria parasites Not Reportable 03/17/18 05:43 Rubens Bodies Not Reportable 03/17/18 05:43 Hem Pathologist Commnt No 03/17/18 05:43 Sodium 142 mmol/L (137-145) 03/18/18 05:23 Potassium 3.9 mmol/L (3.6-5.0) D 03/18/18 05:23 Chloride 101.9 mmol/L (98-107) 03/18/18 05:23 Carbon Dioxide 24 mmol/L (22-30) 03/18/18 05:23 Anion Gap 20 mmol/L 03/18/18 05:23 BUN 22 mg/dL (7-17) H 03/18/18 05:23 Creatinine 0.7 mg/dL (0.7-1.2) 03/18/18 05:23 Estimated GFR > 60 ml/min 03/18/18 05:23 BUN/Creatinine Ratio 31 % 03/18/18 05:23 Glucose 86 mg/dL (65-100) 03/18/18 05:23 POC Glucose 107 (70-105) H 03/20/18 06:08 Hemoglobin A1c 6.0 % (4-6) 03/17/18 05:43 Lactic Acid 1.70 mmol/L (0.7-2.0) 03/15/18 22:06 Calcium 10.0 mg/dL (8.4-10.2) 03/18/18 05:23 Magnesium 1.90 mg/dL (1.7-2.3) 03/18/18 05:23 Total Bilirubin 0.40 mg/dL (0.1-1.2) 03/15/18 19:36 AST 16 units/L (5-40) 03/15/18 19:36 ALT 9 units/L (7-56) 03/15/18 19:36 Alkaline Phosphatase 70 units/L (35-129) 03/15/18 19:36 Ammonia 19.0 umol/L (25-60) L 03/15/18 21:20 Troponin T 0.029 ng/mL (0.00-0.029) 03/16/18 05:31 Total Protein 7.8 g/dL (6.3-8.2) 03/15/18 19:36 Albumin 3.2 g/dL (3.9-5) L 03/15/18 19:36 Albumin/Globulin Ratio 0.7 % 03/15/18 19:36 Triglycerides 151 mg/dL (2-149) H 03/15/18 19:40 Cholesterol 137 mg/dL (50-199) 03/15/18 19:40 LDL Cholesterol Direct 72 mg/dL (50-130) 03/15/18 19:40 HDL Cholesterol 41 mg/dL (40-59) 03/15/18 19:40 Cholesterol/HDL Ratio 3.34 % 03/15/18 19:40 TSH 4.010 mlU/mL (0.270-4.200) 03/15/18 19:36 Urine Color Yellow (Yellow) 03/15/18 19:59 Urine Turbidity Clear (Clear) 03/15/18 19:59 Urine pH 8.0 (5.0-7.0) H 03/15/18 19:59 Ur Specific [place] 1.015 (1.003-1.030) 03/15/18 19:59 Urine Protein <15 mg/dl mg/dL (Negative) 03/15/18 19:59 Urine Glucose (UA) Neg mg/dL (Negative) 03/15/18 19:59 Urine Ketones Neg mg/dL (Negative) 03/15/18 19:59 Urine Blood Neg (Negative) 03/15/18 19:59 Urine Nitrite Neg (Negative) 03/15/18 19:59 Urine Bilirubin Neg (Negative) 03/15/18 19:59 Urine Urobilinogen < 2.0 mg/dL (<2.0) 03/15/18 19:59 Ur Leukocyte Esterase Neg (Negative) 03/15/18 19:59 Urine WBC (Auto) < 1.0 /HPF (0.0-6.0) 03/15/18 19:59 Urine RBC (Auto) 3.0 /HPF (0.0-6.0) 03/15/18 19:59 Urine Opiates Screen Presumptive negative 03/15/18 19:59 Urine Methadone Screen Presumptive negative 03/15/18 19:59 Ur Barbiturates Screen Presumptive negative 03/15/18 19:59 Ur Phencyclidine Scrn Presumptive negative 03/15/18 19:59 Ur Amphetamines Screen Presumptive negative 03/15/18 19:59 U Benzodiazepines Scrn Presumptive negative 03/15/18 19:59 Urine Cocaine Screen Presumptive negative 03/15/18 19:59 U Marijuana (THC) Screen Presumptive negative 03/15/18 19:59 Drugs of Abuse Note Disclamer 03/15/18 19:59 Plasma/Serum Alcohol < 0.01 % (0-0.07) 03/15/18 19:36
[2018-03-20] MEDS: LATANOPROST 0.005% OU SCH (22:54)
[2018-03-20] MEDS: ATIVAN IV PRN (22:55)
[2018-03-20] MEDS: SODIUM CHLORIDE FLUSH SYRINGE 10 ML IV SCH ×2 (22:55)
[2018-03-21] MEDS: DUONEB *Not for PRN Use IH SCH ×4 (01:35→21:05)
[2018-03-21] MEDS: HumaLOG SUB-Q SCH ×4 (07:30→21:38)
[2018-03-21] MEDS: LOPRESSOR PO SCH ×3 (10:03→21:31)
[2018-03-21] MEDS: HEPARIN SUB-Q SCH ×2 (10:04→21:33)
[2018-03-21] MEDS: ASPIRIN PO SCH (10:04)
[2018-03-21] MEDS: KEPPRA PO SCH ×2 (10:04→21:32)
[2018-03-21] MEDS: SODIUM CHLORIDE FLUSH SYRINGE 10 ML IV SCH ×2 (10:05→21:35)
[2018-03-21] MEDS: PEPCID PO SCH ×2 (10:05→21:31)
--- NOTE | 2018-03-21 14:27 | Progress Note ---
Assessment and Plan Assessment and plan: Patient is a 83 yo woman from [facility] with a history of dm type 2, p. afib, hypertension, glaucoma, breast cancer on chemotherapy, gerd, sz disorder, influenza, mrsa pneumonia AMI, s/p trach with removal and PEG who presented to ED with AMS. She was found to have afib with RVR. Atrial fibrillation with RVR Continue lopressor, TSH level is normal Cardiology consulted in the ED, will not repeat echo ( in chart) Elevated troponin, probably secondary to demand ischemia trending down, Cardiology following Acute encephalopathy, probably secondary to dementia with behavioral disturbances CT head is negative, Patient will be placed PRN Ativan SIRS, probably secondary to noninfectious cause On account of tachycardia and AMS, but tachycardia is secondary to afib Will continue to hydrate patient and monitor clinically [id number] diabetes mellitus type 2 Patient will be placed on SSI, accu cheks ACHS, A1C Hypertension Continue antihypertensives Prophylaxis DVT prophylaxis with heparin Functional quadriplegia, poa physical therapy 03/18/18: d/w son Ja (only biologic child), his mother has been in out of a few different hospitals, including [facility], then [facility] for 3- 4 months. She stopped walking and just moans in pains. He wants the PEG tube removed because he thinks it is the source of the pains. Ordered speech therapy/pt/ot. He doesn't want his [place] to go back to the [place] (she has been there x 23 days and he feels she has plateau there). Ja states, much support at home including her who is a doctor. Will setup home health then possible d/c in 1-2 days. 03/19/18: Tube feeding indefinitely, patient failed swallow evaluation. Needs hospital bed because she has quadplegia (functional type) due to advance Dementia. Will discharge tomorrow once home health setup 03/20/18: Hospital bed pending insurance approval ([employer] [employer]) still waiting on home health/hospital bed to be step up. History Interval history: Patient was seen and examined. Follow-up on current diagnosis of AMS. Overnight uneventful. Patient denies any chest pain, shortness breath, nausea/vomiting or severe headaches. Imaging, nursing note, chart, labs and old chart reviewed. Discussed with nursing and Son, Ja Arango at bedside. Hospitalist Physical - Physical exam Narrative exam: GEN: chronically debilated, moaning, NAD, Awake, Alert, Orientated HEENT: NCAT, EOMI, PERRL, OP dry and pasty NECK: supple, no adenopathy, no thyromegaly, no JVD CVS/HEART: irregular irregular, normal S1S2, pulses present bilaterally CHEST/LUNGS: Symmetrical chest expansion, good air entry bilaterally GI/Abdomen: soft, NTND, PEG in place good bowel sounds, no guarding or rebound /Bladder: no suprapubic tenderness, EXT/Skin: no obvious rash MSK: contracted legs Neuro: CN 2-12 grossly intact, doesn't follow commands Psych: calm - Constitutional Vitals: Temp Pulse Resp BP Pulse Ox 98.2 F 90 18 119/85 96 03/21/18 04:58 03/21/18 14:23 03/21/18 14:16 03/21/18 14:23 03/21/18 10:00 General appearance: Present: no acute distress Results - Labs CBC & Chem 7: 03/18/18 05:23 03/18/18 05:23 Labs: Laboratory Last Values WBC 6.4 K/mm3 (4.5-11.0) 03/18/18 05:23 RBC 3.62 M/mm3 (3.65-5.03) L 03/18/18 05:23 Hgb 11.4 gm/dl (10.1-14.3) 03/18/18 05:23 Hct 33.9 % (30.3-42.9) 03/18/18 05:23 MCV 94 fl (79-97) 03/18/18 05:23 MCH 31 pg (28-32) 03/18/18 05:23 MCHC 34 % (30-34) 03/18/18 05:23 RDW 18.0 % (13.2-15.2) H 03/18/18 05:23 Plt Count 272 K/mm3 (140-440) 03/18/18 05:23 [place] % (Auto) Therapist Rrt 03/17/18 05:43 Add Manual Diff Complete 03/17/18 05:43 Total Counted 100 03/17/18 05:43 Seg Neuts % (Manual) 70.0 % (40.0-70.0) 03/17/18 05:43 Band Neutrophils % 2.0 % 03/17/18 05:43 Lymphocytes % (Manual) 22.0 % (13.4-35.0) 03/17/18 05:43 Reactive Lymphs % (Man) 0 % 03/17/18 05:43 Monocytes % (Manual) 4.0 % (0.0-7.3) 03/17/18 05:43 Eosinophils % (Manual) 1.0 % (0.0-4.3) 03/17/18 05:43 Basophils % (Manual) 0 % (0.0-1.8) 03/17/18 05:43 Metamyelocytes % 1.0 % 03/17/18 05:43 Myelocytes % 0 % 03/17/18 05:43 Promyelocytes % 0 % 03/17/18 05:43 Blast Cells % 0 % 03/17/18 05:43 Nucleated RBC % Not Reportable 03/17/18 05:43 Seg Neutrophils # Man 5.0 K/mm3 (1.8-7.7) 03/17/18 05:43 Band Neutrophils # 0.1 K/mm3 03/17/18 05:43 Lymphocytes # (Manual) 1.6 K/mm3 (1.2-5.4) 03/17/18 05:43 Abs React Lymphs (Man) 0.0 K/mm3 03/17/18 05:43 Monocytes # (Manual) 0.3 K/mm3 (0.0-0.8) 03/17/18 05:43 Eosinophils # (Manual) 0.1 K/mm3 (0.0-0.4) 03/17/18 05:43 Basophils # (Manual) 0.0 K/mm3 (0.0-0.1) 03/17/18 05:43 Metamyelocytes # 0.1 K/mm3 03/17/18 05:43 Myelocytes # 0.0 K/mm3 03/17/18 05:43 Promyelocytes # 0.0 K/mm3 03/17/18 05:43 Blast Cells # 0.0 K/mm3 03/17/18 05:43 WBC Morphology Not Reportable 03/17/18 05:43 Hypersegmented Neuts Not Reportable 03/17/18 05:43 Hyposegmented Neuts Not Reportable 03/17/18 05:43 Hypogranular Neuts Not Reportable 03/17/18 05:43 Smudge Cells Not Reportable 03/17/18 05:43 Toxic Granulation Not Reportable 03/17/18 05:43 Toxic Vacuolation Not Reportable 03/17/18 05:43 Dohle Bodies Not Reportable 03/17/18 05:43 Pelger-Huet Anomaly Not Reportable 03/17/18 05:43 Bassem Rods Not Reportable 03/17/18 05:43 Platelet Estimate Appears normal 03/17/18 05:43 Clumped Platelets Not Reportable 03/17/18 05:43 Plt Clumps, EDTA Not Reportable 03/17/18 05:43 Large Platelets Not Reportable 03/17/18 05:43 Giant Platelets Not Reportable 03/17/18 05:43 Platelet Satelliting Not Reportable 03/17/18 05:43 Plt Morphology Comment Not Reportable 03/17/18 05:43 RBC Morphology Not Reportable 03/17/18 05:43 Dimorphic RBCs Not Reportable 03/17/18 05:43 Polychromasia Not Reportable 03/17/18 05:43 Hypochromasia Not Reportable 03/17/18 05:43 Poikilocytosis 1+ 03/17/18 05:43 Anisocytosis 1+ 03/17/18 05:43 Microcytosis Few 03/17/18 05:43 Macrocytosis Not Reportable 03/17/18 05:43 Spherocytes Not Reportable 03/17/18 05:43 Pappenheimer Bodies Not Reportable 03/17/18 05:43 Sickle Cells Not Reportable 03/17/18 05:43 Target Cells Not Reportable 03/17/18 05:43 Tear Drop Cells Not Reportable 03/17/18 05:43 Ovalocytes Not Reportable 03/17/18 05:43 Stomatocytes 2+ 03/17/18 05:43 Helmet Cells Not Reportable 03/17/18 05:43 [place] Bodies Not Reportable 03/17/18 05:43 [place] Rings Not Reportable 03/17/18 05:43 Benny Cells Not Reportable 03/17/18 05:43 Bite Cells Not Reportable 03/17/18 05:43 Crenated Cell Not Reportable 03/17/18 05:43 Elliptocytes Not Reportable 03/17/18 05:43 Acanthocytes (Spur) Not Reportable 03/17/18 05:43 Rouleaux Not Reportable 03/17/18 05:43 Hemoglobin C Crystals Not Reportable 03/17/18 05:43 Schistocytes Not Reportable 03/17/18 05:43 Malaria parasites Not Reportable 03/17/18 05:43 Rubens Bodies Not Reportable 03/17/18 05:43 Hem Pathologist Commnt No 03/17/18 05:43 Sodium 142 mmol/L (137-145) 03/18/18 05:23 Potassium 3.9 mmol/L (3.6-5.0) D 03/18/18 05:23 Chloride 101.9 mmol/L (98-107) 03/18/18 05:23 Carbon Dioxide 24 mmol/L (22-30) 03/18/18 05:23 Anion Gap 20 mmol/L 03/18/18 05:23 BUN 22 mg/dL (7-17) H 03/18/18 05:23 Creatinine 0.7 mg/dL (0.7-1.2) 03/18/18 05:23 Estimated GFR > 60 ml/min 03/18/18 05:23 BUN/Creatinine Ratio 31 % 03/18/18 05:23 Glucose 86 mg/dL (65-100) 03/18/18 05:23 POC Glucose 140 (70-105) H 03/21/18 10:33 Hemoglobin A1c 6.0 % (4-6) 03/17/18 05:43 Lactic Acid 1.70 mmol/L (0.7-2.0) 03/15/18 22:06 Calcium 10.0 mg/dL (8.4-10.2) 03/18/18 05:23 Magnesium 1.90 mg/dL (1.7-2.3) 03/18/18 05:23 Total Bilirubin 0.40 mg/dL (0.1-1.2) 03/15/18 19:36 AST 16 units/L (5-40) 03/15/18 19:36 ALT 9 units/L (7-56) 03/15/18 19:36 Alkaline Phosphatase 70 units/L (35-129) 03/15/18 19:36 Ammonia 19.0 umol/L (25-60) L 03/15/18 21:20 Troponin T 0.029 ng/mL (0.00-0.029) 03/16/18 05:31 Total Protein 7.8 g/dL (6.3-8.2) 03/15/18 19:36 Albumin 3.2 g/dL (3.9-5) L 03/15/18 19:36 Albumin/Globulin Ratio 0.7 % 03/15/18 19:36 Triglycerides 151 mg/dL (2-149) H 03/15/18 19:40 Cholesterol 137 mg/dL (50-199) 03/15/18 19:40 LDL Cholesterol Direct 72 mg/dL (50-130) 03/15/18 19:40 HDL Cholesterol 41 mg/dL (40-59) 03/15/18 19:40 Cholesterol/HDL Ratio 3.34 % 03/15/18 19:40 TSH 4.010 mlU/mL (0.270-4.200) 03/15/18 19:36 Urine Color Yellow (Yellow) 03/15/18 19:59 Urine Turbidity Clear (Clear) 03/15/18 19:59 Urine pH 8.0 (5.0-7.0) H 03/15/18 19:59 Ur Specific [place] 1.015 (1.003-1.030) 03/15/18 19:59 Urine Protein <15 mg/dl mg/dL (Negative) 03/15/18 19:59 Urine Glucose (UA) Neg mg/dL (Negative) 03/15/18 19:59 Urine Ketones Neg mg/dL (Negative) 03/15/18 19:59 Urine Blood Neg (Negative) 03/15/18 19:59 Urine Nitrite Neg (Negative) 03/15/18 19:59 Urine Bilirubin Neg (Negative) 03/15/18 19:59 Urine Urobilinogen < 2.0 mg/dL (<2.0) 03/15/18 19:59 Ur Leukocyte Esterase Neg (Negative) 03/15/18 19:59 Urine WBC (Auto) < 1.0 /HPF (0.0-6.0) 03/15/18 19:59 Urine RBC (Auto) 3.0 /HPF (0.0-6.0) 03/15/18 19:59 Urine Opiates Screen Presumptive negative 03/15/18 19:59 Urine Methadone Screen Presumptive negative 03/15/18 19:59 Ur Barbiturates Screen Presumptive negative 03/15/18 19:59 Ur Phencyclidine Scrn Presumptive negative 03/15/18 19:59 Ur Amphetamines Screen Presumptive negative 03/15/18 19:59 U Benzodiazepines Scrn Presumptive negative 03/15/18 19:59 Urine Cocaine Screen Presumptive negative 03/15/18 19:59 U Marijuana (THC) Screen Presumptive negative 03/15/18 19:59 Drugs of Abuse Note Disclamer 03/15/18 19:59 Plasma/Serum Alcohol < 0.01 % (0-0.07) 03/15/18 19:36
[2018-03-21] MEDS ORDERED: DUONEB *Not for PRN Use IH SCH (21:30)
[2018-03-21] MEDS: LATANOPROST 0.005% OU SCH (21:30)
[2018-03-21] MEDS: ATIVAN IV PRN (21:32)
[2018-03-21] MEDS: TYLENOL PO PRN (21:37)
[2018-03-21] MEDS ORDERED: PROVENTIL IH PRN (23:37)
[2018-03-22] MEDS: KEPPRA PO SCH ×2 (13:11→22:18)
[2018-03-22] MEDS: ASPIRIN PO SCH (13:12)
[2018-03-22] MEDS: PEPCID PO SCH ×2 (13:12→22:19)
[2018-03-22] MEDS: SODIUM CHLORIDE FLUSH SYRINGE 10 ML IV SCH (13:13)
[2018-03-22] MEDS: HEPARIN SUB-Q SCH ×2 (13:20→22:18)
--- NOTE | 2018-03-22 14:25 | Progress Note ---
Assessment and Plan Assessment and plan: Patient is a 83 yo woman from [facility] with a history of dm type 2, p. afib, hypertension, glaucoma, breast cancer on chemotherapy, gerd, sz disorder, influenza, mrsa pneumonia AMI, s/p trach with removal and PEG who presented to ED with AMS. She was found to have afib with RVR. Atrial fibrillation with RVR Continue lopressor, TSH level is normal Cardiology consulted in the ED, will not repeat echo ( in chart) Elevated troponin, probably secondary to demand ischemia trending down, Cardiology following Acute encephalopathy, probably secondary to dementia with behavioral disturbances CT head is negative, Patient will be placed PRN Ativan SIRS, probably secondary to noninfectious cause On account of tachycardia and AMS, but tachycardia is secondary to afib Will continue to hydrate patient and monitor clinically [id number] diabetes mellitus type 2 Patient will be placed on SSI, accu cheks ACHS, A1C Hypertension Continue antihypertensives Prophylaxis DVT prophylaxis with heparin Functional quadriplegia, poa physical therapy 03/18/18: d/w son Ja (only biologic child), his mother has been in out of a few different hospitals, including [facility], then [facility] for 3- 4 months. She stopped walking and just moans in pains. He wants the PEG tube removed because he thinks it is the source of the pains. Ordered speech therapy/pt/ot. He doesn't want his mother to go back to the [place] (she has been there x 23 days and he feels she has plateau there). Ja states, much support at home including her who is a doctor. Will setup home health then possible d/c in 1-2 days. 03/19/18: Tube feeding indefinitely, patient failed swallow evaluation. Needs hospital bed because she has quadplegia (functional type) due to advance Dementia. Will discharge tomorrow once home health setup 03/20/18: Hospital bed pending insurance approval ([employer]) still waiting on home health/hospital bed to be step up. History Interval history: Patient was seen and examined. Follow-up on current diagnosis of AMS. Overnight uneventful. Patient denies any chest pain, shortness breath, nausea/vomiting or severe headaches. Imaging, nursing note, chart, labs and old chart reviewed. Discussed with nursing and Son, Ja Arango at bedside. Hospitalist Physical - Physical exam Narrative exam: GEN: chronically debilated, moaning, NAD, Awake, Alert, Orientated HEENT: NCAT, EOMI, PERRL, OP dry and pasty NECK: supple, no adenopathy, no thyromegaly, no JVD CVS/HEART: irregular irregular, normal S1S2, pulses present bilaterally CHEST/LUNGS: Symmetrical chest expansion, good air entry bilaterally GI/Abdomen: soft, NTND, PEG in place good bowel sounds, no guarding or rebound /Bladder: no suprapubic tenderness, EXT/Skin: no obvious rash MSK: contracted legs Neuro: CN 2-12 grossly intact, doesn't follow commands Psych: calm - Constitutional Vitals: Temp Pulse Resp BP Pulse Ox 97.6 F 103 H 18 142/83 97 03/22/18 08:01 03/22/18 08:01 03/22/18 08:01 03/22/18 08:01 03/22/18 10:00 General appearance: Present: no acute distress Results - Labs CBC & Chem 7: 03/18/18 05:23 03/18/18 05:23 Labs: Laboratory Last Values WBC 6.4 K/mm3 (4.5-11.0) 03/18/18 05:23 RBC 3.62 M/mm3 (3.65-5.03) L 03/18/18 05:23 Hgb 11.4 gm/dl (10.1-14.3) 03/18/18 05:23 Hct 33.9 % (30.3-42.9) 03/18/18 05:23 MCV 94 fl (79-97) 03/18/18 05:23 MCH 31 pg (28-32) 03/18/18 05:23 MCHC 34 % (30-34) 03/18/18 05:23 RDW 18.0 % (13.2-15.2) H 03/18/18 05:23 Plt Count 272 K/mm3 (140-440) 03/18/18 05:23 [place] % (Auto) [employer] [place] [employer] 03/17/18 05:43 Add Manual Diff Complete 03/17/18 05:43 Total Counted 100 03/17/18 05:43 Seg Neuts % (Manual) 70.0 % (40.0-70.0) 03/17/18 05:43 Band Neutrophils % 2.0 % 03/17/18 05:43 Lymphocytes % (Manual) 22.0 % (13.4-35.0) 03/17/18 05:43 Reactive Lymphs % (Man) 0 % 03/17/18 05:43 Monocytes % (Manual) 4.0 % (0.0-7.3) 03/17/18 05:43 Eosinophils % (Manual) 1.0 % (0.0-4.3) 03/17/18 05:43 Basophils % (Manual) 0 % (0.0-1.8) 03/17/18 05:43 Metamyelocytes % 1.0 % 03/17/18 05:43 Myelocytes % 0 % 03/17/18 05:43 Promyelocytes % 0 % 03/17/18 05:43 Blast Cells % 0 % 03/17/18 05:43 Nucleated RBC % Not Reportable 03/17/18 05:43 Seg Neutrophils # Man 5.0 K/mm3 (1.8-7.7) 03/17/18 05:43 Band Neutrophils # 0.1 K/mm3 03/17/18 05:43 Lymphocytes # (Manual) 1.6 K/mm3 (1.2-5.4) 03/17/18 05:43 Abs React Lymphs (Man) 0.0 K/mm3 03/17/18 05:43 Monocytes # (Manual) 0.3 K/mm3 (0.0-0.8) 03/17/18 05:43 Eosinophils # (Manual) 0.1 K/mm3 (0.0-0.4) 03/17/18 05:43 Basophils # (Manual) 0.0 K/mm3 (0.0-0.1) 03/17/18 05:43 Metamyelocytes # 0.1 K/mm3 03/17/18 05:43 Myelocytes # 0.0 K/mm3 03/17/18 05:43 Promyelocytes # 0.0 K/mm3 03/17/18 05:43 Blast Cells # 0.0 K/mm3 03/17/18 05:43 WBC Morphology Not Reportable 03/17/18 05:43 Hypersegmented Neuts Not Reportable 03/17/18 05:43 Hyposegmented Neuts Not Reportable 03/17/18 05:43 Hypogranular Neuts Not Reportable 03/17/18 05:43 Smudge Cells Not Reportable 03/17/18 05:43 Toxic Granulation Not Reportable 03/17/18 05:43 Toxic Vacuolation Not Reportable 03/17/18 05:43 Dohle Bodies Not Reportable 03/17/18 05:43 Pelger-Huet Anomaly Not Reportable 03/17/18 05:43 Bassem Rods Not Reportable 03/17/18 05:43 Platelet Estimate Appears normal 03/17/18 05:43 Clumped Platelets Not Reportable 03/17/18 05:43 Plt Clumps, EDTA Not Reportable 03/17/18 05:43 Large Platelets Not Reportable 03/17/18 05:43 Giant Platelets Not Reportable 03/17/18 05:43 Platelet Satelliting Not Reportable 03/17/18 05:43 Plt Morphology Comment Not Reportable 03/17/18 05:43 RBC Morphology Not Reportable 03/17/18 05:43 Dimorphic RBCs Not Reportable 03/17/18 05:43 Polychromasia Not Reportable 03/17/18 05:43 Hypochromasia Not Reportable 03/17/18 05:43 Poikilocytosis 1+ 03/17/18 05:43 Anisocytosis 1+ 03/17/18 05:43 Microcytosis Few 03/17/18 05:43 Macrocytosis Not Reportable 03/17/18 05:43 Spherocytes Not Reportable 03/17/18 05:43 Pappenheimer Bodies Not Reportable 03/17/18 05:43 Sickle Cells Not Reportable 03/17/18 05:43 Target Cells Not Reportable 03/17/18 05:43 Tear Drop Cells Not Reportable 03/17/18 05:43 Ovalocytes Not Reportable 03/17/18 05:43 Stomatocytes 2+ 03/17/18 05:43 Helmet Cells Not Reportable 03/17/18 05:43 [place] Bodies Not Reportable 03/17/18 05:43 [place] Rings Not Reportable 03/17/18 05:43 Benny Cells Not Reportable 03/17/18 05:43 Bite Cells Not Reportable 03/17/18 05:43 Crenated Cell Not Reportable 03/17/18 05:43 Elliptocytes Not Reportable 03/17/18 05:43 Acanthocytes (Spur) Not Reportable 03/17/18 05:43 Rouleaux Not Reportable 03/17/18 05:43 Hemoglobin C Crystals Not Reportable 03/17/18 05:43 Schistocytes Not Reportable 03/17/18 05:43 Malaria parasites Not Reportable 03/17/18 05:43 Rubens Bodies Not Reportable 03/17/18 05:43 Hem Pathologist Commnt No 03/17/18 05:43 Sodium 142 mmol/L (137-145) 03/18/18 05:23 Potassium 3.9 mmol/L (3.6-5.0) D 03/18/18 05:23 Chloride 101.9 mmol/L (98-107) 03/18/18 05:23 Carbon Dioxide 24 mmol/L (22-30) 03/18/18 05:23 Anion Gap 20 mmol/L 03/18/18 05:23 BUN 22 mg/dL (7-17) H 03/18/18 05:23 Creatinine 0.7 mg/dL (0.7-1.2) 03/18/18 05:23 Estimated GFR > 60 ml/min 03/18/18 05:23 BUN/Creatinine Ratio 31 % 03/18/18 05:23 Glucose 86 mg/dL (65-100) 03/18/18 05:23 POC Glucose 148 (70-105) H 03/22/18 11:42 Hemoglobin A1c 6.0 % (4-6) 03/17/18 05:43 Lactic Acid 1.70 mmol/L (0.7-2.0) 03/15/18 22:06 Calcium 10.0 mg/dL (8.4-10.2) 03/18/18 05:23 Magnesium 1.90 mg/dL (1.7-2.3) 03/18/18 05:23 Total Bilirubin 0.40 mg/dL (0.1-1.2) 03/15/18 19:36 AST 16 units/L (5-40) 03/15/18 19:36 ALT 9 units/L (7-56) 03/15/18 19:36 Alkaline Phosphatase 70 units/L (35-129) 03/15/18 19:36 Ammonia 19.0 umol/L (25-60) L 03/15/18 21:20 Troponin T 0.029 ng/mL (0.00-0.029) 03/16/18 05:31 Total Protein 7.8 g/dL (6.3-8.2) 03/15/18 19:36 Albumin 3.2 g/dL (3.9-5) L 03/15/18 19:36 Albumin/Globulin Ratio 0.7 % 03/15/18 19:36 Triglycerides 151 mg/dL (2-149) H 03/15/18 19:40 Cholesterol 137 mg/dL (50-199) 03/15/18 19:40 LDL Cholesterol Direct 72 mg/dL (50-130) 03/15/18 19:40 HDL Cholesterol 41 mg/dL (40-59) 03/15/18 19:40 Cholesterol/HDL Ratio 3.34 % 03/15/18 19:40 TSH 4.010 mlU/mL (0.270-4.200) 03/15/18 19:36 Urine Color Yellow (Yellow) 03/15/18 19:59 Urine Turbidity Clear (Clear) 03/15/18 19:59 Urine pH 8.0 (5.0-7.0) H 03/15/18 19:59 Ur Specific [place] 1.015 (1.003-1.030) 03/15/18 19:59 Urine Protein <15 mg/dl mg/dL (Negative) 03/15/18 19:59 Urine Glucose (UA) Neg mg/dL (Negative) 03/15/18 19:59 Urine Ketones Neg mg/dL (Negative) 03/15/18 19:59 Urine Blood Neg (Negative) 03/15/18 19:59 Urine Nitrite Neg (Negative) 03/15/18 19:59 Urine Bilirubin Neg (Negative) 03/15/18 19:59 Urine Urobilinogen < 2.0 mg/dL (<2.0) 03/15/18 19:59 Ur Leukocyte Esterase Neg (Negative) 03/15/18 19:59 Urine WBC (Auto) < 1.0 /HPF (0.0-6.0) 03/15/18 19:59 Urine RBC (Auto) 3.0 /HPF (0.0-6.0) 03/15/18 19:59 Urine Opiates Screen Presumptive negative 03/15/18 19:59 Urine Methadone Screen Presumptive negative 03/15/18 19:59 Ur Barbiturates Screen Presumptive negative 03/15/18 19:59 Ur Phencyclidine Scrn Presumptive negative 03/15/18 19:59 Ur Amphetamines Screen Presumptive negative 03/15/18 19:59 U Benzodiazepines Scrn Presumptive negative 03/15/18 19:59 Urine Cocaine Screen Presumptive negative 03/15/18 19:59 U Marijuana (THC) Screen Presumptive negative 03/15/18 19:59 Drugs of Abuse Note Disclamer 03/15/18 19:59 Plasma/Serum Alcohol < 0.01 % (0-0.07) 03/15/18 19:36
[2018-03-22] MEDS: HumaLOG SUB-Q SCH ×2 (14:42→22:25)
[2018-03-22] MEDS: ATIVAN IV PRN ×2 (15:33→22:23)
[2018-03-22] MEDS: LOPRESSOR PO SCH (22:25)
[2018-03-23] MEDS: TYLENOL PO PRN (03:30)
[2018-03-23] MEDS: ATIVAN IV PRN (03:30)
[2018-03-23 06:21] LABS: Hematocrit 32.7 % (30.3-42.9); Hemoglobin 11.1 gm/dl (10.1-14.3); Mean Corpuscular HGB Conc 34 % (30-34); Mean Corpuscular Hemoglobin 32 pg (28-32); Mean Corpuscular Volume 93 fl (79-97); Platelet Count 340 K/mm3 (140-440); Red Blood Count 3.52 M/mm3 (3.65-5.03); Red Cell Distribution Width 18.3 % (13.2-15.2)
[2018-03-23 06:39] LABS: BUN/Creatinine Ratio 56; Blood Urea Nitrogen 45 mg/dL (7-17); Calcium 9.5 mg/dL (8.4-10.2); Hemolysis Index 18
[2018-03-23] MEDS: HumaLOG SUB-Q SCH ×4 (08:56→22:09)
[2018-03-23] MEDS: KEPPRA PO SCH ×2 (11:13→22:02)
[2018-03-23] MEDS: ASPIRIN PO SCH (11:13)
[2018-03-23] MEDS: PEPCID PO SCH ×2 (11:13→22:03)
[2018-03-23] MEDS: SODIUM CHLORIDE FLUSH SYRINGE 10 ML IV SCH ×2 (11:14→22:06)
[2018-03-23] MEDS: HEPARIN SUB-Q SCH ×2 (11:14→22:02)
[2018-03-23] MEDS: LOPRESSOR PO SCH ×3 (11:29→22:05)
--- NOTE | 2018-03-23 13:59 | Progress Note ---
Assessment and Plan Assessment and plan: Patient is a 83 yo woman from [facility] with a history of dm type 2, p. afib, hypertension, glaucoma, breast cancer on chemotherapy, gerd, sz disorder, influenza, mrsa pneumonia AMI, s/p trach with removal and PEG who presented to ED with AMS. She was found to have afib with RVR. Atrial fibrillation with RVR Continue lopressor, TSH level is normal Cardiology consulted in the ED, will not repeat echo ( in chart) Elevated troponin, probably secondary to demand ischemia trending down, Cardiology following Acute encephalopathy, probably secondary to dementia with behavioral disturbances CT head is negative, Patient will be placed PRN Ativan SIRS, probably secondary to noninfectious cause On account of tachycardia and AMS, but tachycardia is secondary to afib Will continue to hydrate patient and monitor clinically Zxd-jeboibb-rdnehinsn diabetes mellitus type 2 Patient will be placed on SSI, accu cheks ACHS, A1C Hypertension Continue antihypertensives Prophylaxis DVT prophylaxis with heparin Functional quadriplegia, poa physical therapy 03/18/18: d/w son Ja (only biologic child), his mother has been in out of a few different hospitals, including [facility], then [facility] for 3- 4 months. She stopped walking and just moans in pains. He wants the PEG tube removed because he thinks it is the source of the pains. Ordered speech therapy/pt/ot. He doesn't want his mother to go back to the [place] (she has been there x 23 days and he feels she has plateau there). Ja states, much support at home including her who is a doctor. Will setup home health then possible d/c in 1-2 days. 03/19/18: Tube feeding indefinitely, patient failed swallow evaluation. Needs hospital bed because she has quadplegia (functional type) due to advance Dementia. Will discharge tomorrow once home health setup 03/20/18: Hospital bed pending insurance approval ([employer]) still waiting on home health/hospital bed to be step up. Son, Ja Arango, appealed discharge History Interval history: Patient was seen and examined. Follow-up on current diagnosis of AMS. Overnight uneventful. Patient denies any chest pain, shortness breath, nausea/vomiting or severe headaches. Imaging, nursing note, chart, labs and old chart reviewed. Discussed with nursing and Son, Ja Arango at bedside. Hospitalist Physical - Physical exam Narrative exam: GEN: chronically debilated, moaning, NAD, Awake, Alert, Orientated HEENT: NCAT, EOMI, PERRL, OP dry and pasty NECK: supple, no adenopathy, no thyromegaly, no JVD CVS/HEART: irregular irregular, normal S1S2, pulses present bilaterally CHEST/LUNGS: Symmetrical chest expansion, good air entry bilaterally GI/Abdomen: soft, NTND, PEG in place good bowel sounds, no guarding or rebound /Bladder: no suprapubic tenderness, EXT/Skin: no obvious rash MSK: contracted legs Neuro: CN 2-12 grossly intact, doesn't follow commands Psych: calm - Constitutional Vitals: Temp Pulse Resp BP Pulse Ox 97.4 F L 95 H 24 151/93 100 03/23/18 08:19 03/23/18 08:19 03/23/18 08:19 03/23/18 11:29 03/23/18 08:19 General appearance: Present: no acute distress Results - Labs CBC & Chem 7: 03/23/18 06:00 03/23/18 06:00 Labs: Laboratory Last Values WBC 5.1 K/mm3 (4.5-11.0) 03/23/18 06:00 RBC 3.52 M/mm3 (3.65-5.03) L 03/23/18 06:00 Hgb 11.1 gm/dl (10.1-14.3) 03/23/18 06:00 Hct 32.7 % (30.3-42.9) 03/23/18 06:00 MCV 93 fl (79-97) 03/23/18 06:00 MCH 32 pg (28-32) 03/23/18 06:00 MCHC 34 % (30-34) 03/23/18 06:00 RDW 18.3 % (13.2-15.2) H 03/23/18 06:00 Plt Count 340 K/mm3 (140-440) 03/23/18 06:00 [place] % (Auto) [employer] Philosophy Professor 03/17/18 05:43 Add Manual Diff Complete 03/17/18 05:43 Total Counted 100 03/17/18 05:43 Seg Neuts % (Manual) 70.0 % (40.0-70.0) 03/17/18 05:43 Band Neutrophils % 2.0 % 03/17/18 05:43 Lymphocytes % (Manual) 22.0 % (13.4-35.0) 03/17/18 05:43 Reactive Lymphs % (Man) 0 % 03/17/18 05:43 Monocytes % (Manual) 4.0 % (0.0-7.3) 03/17/18 05:43 Eosinophils % (Manual) 1.0 % (0.0-4.3) 03/17/18 05:43 Basophils % (Manual) 0 % (0.0-1.8) 03/17/18 05:43 Metamyelocytes % 1.0 % 03/17/18 05:43 Myelocytes % 0 % 03/17/18 05:43 Promyelocytes % 0 % 03/17/18 05:43 Blast Cells % 0 % 03/17/18 05:43 Nucleated RBC % Not Reportable 03/17/18 05:43 Seg Neutrophils # Man 5.0 K/mm3 (1.8-7.7) 03/17/18 05:43 Band Neutrophils # 0.1 K/mm3 03/17/18 05:43 Lymphocytes # (Manual) 1.6 K/mm3 (1.2-5.4) 03/17/18 05:43 Abs React Lymphs (Man) 0.0 K/mm3 03/17/18 05:43 Monocytes # (Manual) 0.3 K/mm3 (0.0-0.8) 03/17/18 05:43 Eosinophils # (Manual) 0.1 K/mm3 (0.0-0.4) 03/17/18 05:43 Basophils # (Manual) 0.0 K/mm3 (0.0-0.1) 03/17/18 05:43 Metamyelocytes # 0.1 K/mm3 03/17/18 05:43 Myelocytes # 0.0 K/mm3 03/17/18 05:43 Promyelocytes # 0.0 K/mm3 03/17/18 05:43 Blast Cells # 0.0 K/mm3 03/17/18 05:43 WBC Morphology Not Reportable 03/17/18 05:43 Hypersegmented Neuts Not Reportable 03/17/18 05:43 Hyposegmented Neuts Not Reportable 03/17/18 05:43 Hypogranular Neuts Not Reportable 03/17/18 05:43 Smudge Cells Not Reportable 03/17/18 05:43 Toxic Granulation Not Reportable 03/17/18 05:43 Toxic Vacuolation Not Reportable 03/17/18 05:43 Dohle Bodies Not Reportable 03/17/18 05:43 Pelger-Huet Anomaly Not Reportable 03/17/18 05:43 Bassem Rods Not Reportable 03/17/18 05:43 Platelet Estimate Appears normal 03/17/18 05:43 Clumped Platelets Not Reportable 03/17/18 05:43 Plt Clumps, EDTA Not Reportable 03/17/18 05:43 Large Platelets Not Reportable 03/17/18 05:43 Giant Platelets Not Reportable 03/17/18 05:43 Platelet Satelliting Not Reportable 03/17/18 05:43 Plt Morphology Comment Not Reportable 03/17/18 05:43 RBC Morphology Not Reportable 03/17/18 05:43 Dimorphic RBCs Not Reportable 03/17/18 05:43 Polychromasia Not Reportable 03/17/18 05:43 Hypochromasia Not Reportable 03/17/18 05:43 Poikilocytosis 1+ 03/17/18 05:43 Anisocytosis 1+ 03/17/18 05:43 Microcytosis Few 03/17/18 05:43 Macrocytosis Not Reportable 03/17/18 05:43 Spherocytes Not Reportable 03/17/18 05:43 Pappenheimer Bodies Not Reportable 03/17/18 05:43 Sickle Cells Not Reportable 03/17/18 05:43 Target Cells Not Reportable 03/17/18 05:43 Tear Drop Cells Not Reportable 03/17/18 05:43 Ovalocytes Not Reportable 03/17/18 05:43 Stomatocytes 2+ 03/17/18 05:43 Helmet Cells Not Reportable 03/17/18 05:43 [place] Bodies Not Reportable 03/17/18 05:43 [place] Rings Not Reportable 03/17/18 05:43 Benny Cells Not Reportable 03/17/18 05:43 Bite Cells Not Reportable 03/17/18 05:43 Crenated Cell Not Reportable 03/17/18 05:43 Elliptocytes Not Reportable 03/17/18 05:43 Acanthocytes (Spur) Not Reportable 03/17/18 05:43 Rouleaux Not Reportable 03/17/18 05:43 Hemoglobin C Crystals Not Reportable 03/17/18 05:43 Schistocytes Not Reportable 03/17/18 05:43 Malaria parasites Not Reportable 03/17/18 05:43 Rubens Bodies Not Reportable 03/17/18 05:43 Hem Pathologist Commnt No 03/17/18 05:43 Sodium 147 mmol/L (137-145) H 03/23/18 06:00 Potassium 4.4 mmol/L (3.6-5.0) 03/23/18 06:00 Chloride 107.2 mmol/L (98-107) H 03/23/18 06:00 Carbon Dioxide 27 mmol/L (22-30) 03/23/18 06:00 Anion Gap 17 mmol/L 03/23/18 06:00 BUN 45 mg/dL (7-17) H 03/23/18 06:00 Creatinine 0.8 mg/dL (0.7-1.2) 03/23/18 06:00 Estimated GFR > 60 ml/min 03/23/18 06:00 BUN/Creatinine Ratio 56 % 03/23/18 06:00 Glucose 127 mg/dL (65-100) H 03/23/18 06:00 POC Glucose 136 (70-105) H 03/23/18 12:25 Hemoglobin A1c 6.0 % (4-6) 03/17/18 05:43 Lactic Acid 1.70 mmol/L (0.7-2.0) 03/15/18 22:06 Calcium 9.5 mg/dL (8.4-10.2) 03/23/18 06:00 Magnesium 2.30 mg/dL (1.7-2.3) 03/23/18 06:00 Total Bilirubin 0.40 mg/dL (0.1-1.2) 03/15/18 19:36 AST 16 units/L (5-40) 03/15/18 19:36 ALT 9 units/L (7-56) 03/15/18 19:36 Alkaline Phosphatase 70 units/L (35-129) 03/15/18 19:36 Ammonia 19.0 umol/L (25-60) L 03/15/18 21:20 Troponin T 0.029 ng/mL (0.00-0.029) 03/16/18 05:31 Total Protein 7.8 g/dL (6.3-8.2) 03/15/18 19:36 Albumin 3.2 g/dL (3.9-5) L 03/15/18 19:36 Albumin/Globulin Ratio 0.7 % 03/15/18 19:36 Triglycerides 151 mg/dL (2-149) H 03/15/18 19:40 Cholesterol 137 mg/dL (50-199) 03/15/18 19:40 LDL Cholesterol Direct 72 mg/dL (50-130) 03/15/18 19:40 HDL Cholesterol 41 mg/dL (40-59) 03/15/18 19:40 Cholesterol/HDL Ratio 3.34 % 03/15/18 19:40 TSH 4.010 mlU/mL (0.270-4.200) 03/15/18 19:36 Urine Color Yellow (Yellow) 03/15/18 19:59 Urine Turbidity Clear (Clear) 03/15/18 19:59 Urine pH 8.0 (5.0-7.0) H 03/15/18 19:59 Ur Specific [place] 1.015 (1.003-1.030) 03/15/18 19:59 Urine Protein <15 mg/dl mg/dL (Negative) 03/15/18 19:59 Urine Glucose (UA) Neg mg/dL (Negative) 03/15/18 19:59 Urine Ketones Neg mg/dL (Negative) 03/15/18 19:59 Urine Blood Neg (Negative) 03/15/18 19:59 Urine Nitrite Neg (Negative) 03/15/18 19:59 Urine Bilirubin Neg (Negative) 03/15/18 19:59 Urine Urobilinogen < 2.0 mg/dL (<2.0) 03/15/18 19:59 Ur Leukocyte Esterase Neg (Negative) 03/15/18 19:59 Urine WBC (Auto) < 1.0 /HPF (0.0-6.0) 03/15/18 19:59 Urine RBC (Auto) 3.0 /HPF (0.0-6.0) 03/15/18 19:59 Urine Opiates Screen Presumptive negative 03/15/18 19:59 Urine Methadone Screen Presumptive negative 03/15/18 19:59 Ur Barbiturates Screen Presumptive negative 03/15/18 19:59 Ur Phencyclidine Scrn Presumptive negative 03/15/18 19:59 Ur Amphetamines Screen Presumptive negative 03/15/18 19:59 U Benzodiazepines Scrn Presumptive negative 03/15/18 19:59 Urine Cocaine Screen Presumptive negative 03/15/18 19:59 U Marijuana (THC) Screen Presumptive negative 03/15/18 19:59 Drugs of Abuse Note Disclamer 03/15/18 19:59 Plasma/Serum Alcohol < 0.01 % (0-0.07) 03/15/18 19:36
[2018-03-23] MEDS: DILAUDID IV PRN (22:01)
[2018-03-23] MEDS: LATANOPROST 0.005% OU SCH (22:05)
[2018-03-24] MEDS: ATIVAN IV PRN ×3 (00:16→15:10)
[2018-03-24] MEDS: HumaLOG SUB-Q SCH ×4 (08:28→22:15)
[2018-03-24] MEDS: HEPARIN SUB-Q SCH ×2 (10:10→21:31)
[2018-03-24] MEDS: KEPPRA PO SCH ×2 (10:10→21:31)
[2018-03-24] MEDS: PEPCID PO SCH ×2 (10:10→21:30)
[2018-03-24] MEDS: ASPIRIN PO SCH (10:11)
[2018-03-24] MEDS: LOPRESSOR PO SCH ×5 (10:11→21:30)
[2018-03-24] MEDS: SODIUM CHLORIDE FLUSH SYRINGE 10 ML IV SCH ×2 (10:13→21:51)
--- NOTE | 2018-03-24 11:35 | Discharge Summary ---
Providers - Providers Date of Admission: 03/16/18 00:47 Attending physician: CLARISSA MORRISON MD 03/16/18 08:06 Consult to Wound/ET Nurse [CONS] Routine Reason For Exam: wound eval 03/17/18 17:55 Consult to Dietitian/Nutrition [CONS] Routine Physician Instructions: Reason For Exam: Reason for Consult: Write/Manage Tube Feeding 03/18/18 13:57 Physical Therapy Evaluation and Treat [CONS] Urgent Comment: Reason For Exam: evaluate and treat Speech Therapy Evaluation and Treat [CONS] Urgent Reason For Exam: Diff Swallowing 03/18/18 13:58 Occupational Therapy Evaluate and Treat [CONS] Urgent Comment: Reason For Exam: Evaluate and Treat 03/19/18 11:08 Consult to Dietitian/Nutrition [CONS] Routine Physician Instructions: Assess nutrtn needs, initiate, modify, manage TF Reason For Exam: Reason for Consult: Write/Manage Tube Feeding Reason for Consult: Write/Manage Tube Feeding 03/19/18 11:28 Consult to Case Management [CONS] Stat Services Needed at Discharge: Other Notified:: Michell Phone number called:: [phone] Was contact made?: Yes Time called:: 11:29 Comment:: Tube feeding Set up Additional Physician Instructions: Protein Needs: 76-95g (1.2-1.5g/kg) Fluid Needs: 1 ml/kcal Diabetisource at 70 mls/hr via pump. Water flush of 100 mls q 4 hrs. Kcal 2016 Protein 101 GM Fluid 1378ML Hospitalization Reason for admission: ams Condition: Stable Hospital course: Patient is a 83 yo woman from [facility] with a history of dm type 2, p. afib, hypertension, glaucoma, breast cancer on chemotherapy, gerd, sz disorder, influenza, mrsa pneumonia AMI, s/p trach with removal and PEG who presented to ED with AMS. She was found to have afib with RVR. Byrd was consulted and patient was continued on Lopressor TSH was normal as improved. The son Ja presented as the patient has been in out of a few hospitals including [facility] for 3- 4 months. She stopped walking and just moans in pains. He wants the PEG tube removed because he thinks it is the source of the pains. Ordered speech therapy/ pt/ot. He doesn't want his mother to go back to the [place] (she has been there x 23 days and he feels she has plateau there). Ja states, much support at home including her who is a doctor. Attempt for by mouth intake the patient failed this son was agreeable to continue PEG tube hospital bed was obtained due to quadriplegia. The patient will be transferred home. No further workup was indicated by software quality engineer, they also did give the patient is not a candidate for systemic anticoagulation. But this can be reevaluated outpatient.. Discharge diagnosis Atrial fibrillation with RVR Type II OK Acute encephalopathy, probably secondary to dementia with behavioral disturbances Hypertension SIRS, probably secondary to noninfectious cause Cfy-fikjmsy-lxybykwzp diabetes mellitus type 2 History of PEA arrest 223 History of recent flu secondary to MRSA pneumonia status post intubation trach and PEG GERD Functional quadriplegia, poa Disposition: DC/TX-06 HOME UNDER HOME HLTH Time spent for discharge: 35 mins Core Measure Documentation - Palliative Care Palliative Care/ Comfort Measures: Not Applicable - Core Measures Any of the following diagnoses?: none - VTE Discharge Requirements Deep Vein Thrombosis/Pulmonary Embolism Present on Admission: No Exam - Physical Exam Narrative exam: GEN: chronically debilated, moaning, NAD, Awake, Alert, Orientated HEENT: NCAT, EOMI, PERRL, OP dry and pasty NECK: supple, no adenopathy, no thyromegaly, no JVD CVS/HEART: irregular irregular, normal S1S2, pulses present bilaterally CHEST/LUNGS: Symmetrical chest expansion, good air entry bilaterally GI/Abdomen: soft, NTND, PEG in place good bowel sounds, no guarding or rebound /Bladder: no suprapubic tenderness, EXT/Skin: no obvious rash MSK: contracted legs Neuro: CN 2-12 grossly intact, doesn't follow commands Psych: calm - Constitutional Vitals: Temp Pulse Resp BP Pulse Ox 98.1 F 107 H 19 133/92 99 03/24/18 07:40 03/24/18 10:13 03/24/18 07:40 03/24/18 10:13 03/24/18 07:40 Plan Activity: advance as tolerated, fall precautions Diet: per dietitian instruction, advance as tolerated Special Instructions: record daily BP diary, record blood sugar diary Follow up with: JIMBO GAMBOA SR [Other] - 3-5 Days Forms: Accompanied Note Prescriptions: Lipase/Protease/Amylase [Pancrebrigette Davis 10,500 Unit] 1 each FEEDTUBE PRN PRN #30 capsule PRN Reason: For Clogged Feeding Tube Metoprolol [Lopressor] 25 mg PO TID #90 tablet
[2018-03-24] MEDS: DILAUDID IV PRN (21:32)
[2018-03-25] MEDS: LATANOPROST 0.005% OU SCH (00:04)
[2018-03-25] MEDS: ATIVAN IV PRN ×2 (00:12→04:33)
[2018-03-25] MEDS: HumaLOG SUB-Q SCH (07:30)
--- NOTE | 2018-03-25 07:34 | Progress Note ---
Assessment and Plan Assessment and plan: Patient is a 83 yo woman from [facility] with a history of dm type 2, p. afib, hypertension, glaucoma, breast cancer on chemotherapy, gerd, sz disorder, influenza, mrsa pneumonia AMI, s/p trach with removal and PEG who presented to ED with AMS. She was found to have afib with RVR. Atrial fibrillation with RVR Continue lopressor, TSH level is normal Cardiology consulted in the ED, will not repeat echo ( in chart) Elevated troponin, probably secondary to demand ischemia trending down, Cardiology following Acute encephalopathy, probably secondary to dementia with behavioral disturbances CT head is negative, Patient will be placed PRN Ativan SIRS, probably secondary to noninfectious cause On account of tachycardia and AMS, but tachycardia is secondary to afib Will continue to hydrate patient and monitor clinically Jab-gvxwfel-pnwlrqjli diabetes mellitus type 2 Patient will be placed on SSI, accu cheks ACHS, A1C Hypertension Continue antihypertensives Prophylaxis DVT prophylaxis with heparin Functional quadriplegia, poa physical therapy 03/18/18: d/w son Ja (only biologic child), his mother has been in out of a few different hospitals, including [facility], then [facility] for 3- 4 months. She stopped walking and just moans in pains. He wants the PEG tube removed because he thinks it is the source of the pains. Ordered speech therapy/pt/ot. He doesn't want his mother to go back to the [place] (she has been there x 23 days and he feels she has plateau there). Ja states, much support at home including her who is a doctor. Will setup home health then possible d/c in 1-2 days. 03/19/18: Tube feeding indefinitely, patient failed swallow evaluation. Needs hospital bed because she has quadplegia (functional type) due to advance Dementia. Will discharge tomorrow once home health setup 03/25/18: patient clinically unchanged, awaiting Medicare petition. still waiting on home health/hospital bed to be step up. Son, Ja Arango, appealed discharge History Interval history: Patient seen and examined, remains lathergic. Hospitalist Physical - Physical exam Narrative exam: GEN: chronically debilated, moaning, NAD, Awake, Alert, Orientated HEENT: NCAT, EOMI, PERRL, OP dry and pasty NECK: supple, no adenopathy, no thyromegaly, no JVD CVS/HEART: irregular irregular, normal S1S2, pulses present bilaterally CHEST/LUNGS: Symmetrical chest expansion, good air entry bilaterally GI/Abdomen: soft, NTND, PEG in place good bowel sounds, no guarding or rebound /Bladder: no suprapubic tenderness, EXT/Skin: no obvious rash MSK: contracted legs Neuro: CN 2-12 grossly intact, doesn't follow commands Psych: calm - Constitutional Vitals: Temp Pulse Resp BP Pulse Ox 97.8 F 97 H 20 143/99 100 03/24/18 22:49 03/24/18 22:49 03/24/18 22:49 03/24/18 22:49 03/24/18 22:49 General appearance: Present: no acute distress Results - Labs CBC & Chem 7: 03/23/18 06:00 03/23/18 06:00 Labs: Laboratory Last Values WBC 5.1 K/mm3 (4.5-11.0) 03/23/18 06:00 RBC 3.52 M/mm3 (3.65-5.03) L 03/23/18 06:00 Hgb 11.1 gm/dl (10.1-14.3) 03/23/18 06:00 Hct 32.7 % (30.3-42.9) 03/23/18 06:00 MCV 93 fl (79-97) 03/23/18 06:00 MCH 32 pg (28-32) 03/23/18 06:00 MCHC 34 % (30-34) 03/23/18 06:00 RDW 18.3 % (13.2-15.2) H 03/23/18 06:00 Plt Count 340 K/mm3 (140-440) 03/23/18 06:00 [place] % (Auto) Electric Vehicle Electrician 03/17/18 05:43 Add Manual Diff Complete 03/17/18 05:43 Total Counted 100 03/17/18 05:43 Seg Neuts % (Manual) 70.0 % (40.0-70.0) 03/17/18 05:43 Band Neutrophils % 2.0 % 03/17/18 05:43 Lymphocytes % (Manual) 22.0 % (13.4-35.0) 03/17/18 05:43 Reactive Lymphs % (Man) 0 % 03/17/18 05:43 Monocytes % (Manual) 4.0 % (0.0-7.3) 03/17/18 05:43 Eosinophils % (Manual) 1.0 % (0.0-4.3) 03/17/18 05:43 Basophils % (Manual) 0 % (0.0-1.8) 03/17/18 05:43 Metamyelocytes % 1.0 % 03/17/18 05:43 Myelocytes % 0 % 03/17/18 05:43 Promyelocytes % 0 % 03/17/18 05:43 Blast Cells % 0 % 03/17/18 05:43 Nucleated RBC % Not Reportable 03/17/18 05:43 Seg Neutrophils # Man 5.0 K/mm3 (1.8-7.7) 03/17/18 05:43 Band Neutrophils # 0.1 K/mm3 03/17/18 05:43 Lymphocytes # (Manual) 1.6 K/mm3 (1.2-5.4) 03/17/18 05:43 Abs React Lymphs (Man) 0.0 K/mm3 03/17/18 05:43 Monocytes # (Manual) 0.3 K/mm3 (0.0-0.8) 03/17/18 05:43 Eosinophils # (Manual) 0.1 K/mm3 (0.0-0.4) 03/17/18 05:43 Basophils # (Manual) 0.0 K/mm3 (0.0-0.1) 03/17/18 05:43 Metamyelocytes # 0.1 K/mm3 03/17/18 05:43 Myelocytes # 0.0 K/mm3 03/17/18 05:43 Promyelocytes # 0.0 K/mm3 03/17/18 05:43 Blast Cells # 0.0 K/mm3 03/17/18 05:43 WBC Morphology Not Reportable 03/17/18 05:43 Hypersegmented Neuts Not Reportable 03/17/18 05:43 Hyposegmented Neuts Not Reportable 03/17/18 05:43 Hypogranular Neuts Not Reportable 03/17/18 05:43 Smudge Cells Not Reportable 03/17/18 05:43 Toxic Granulation Not Reportable 03/17/18 05:43 Toxic Vacuolation Not Reportable 03/17/18 05:43 Dohle Bodies Not Reportable 03/17/18 05:43 Pelger-Huet Anomaly Not Reportable 03/17/18 05:43 Bassem Rods Not Reportable 03/17/18 05:43 Platelet Estimate Appears normal 03/17/18 05:43 Clumped Platelets Not Reportable 03/17/18 05:43 Plt Clumps, EDTA Not Reportable 03/17/18 05:43 Large Platelets Not Reportable 03/17/18 05:43 Giant Platelets Not Reportable 03/17/18 05:43 Platelet Satelliting Not Reportable 03/17/18 05:43 Plt Morphology Comment Not Reportable 03/17/18 05:43 RBC Morphology Not Reportable 03/17/18 05:43 Dimorphic RBCs Not Reportable 03/17/18 05:43 Polychromasia Not Reportable 03/17/18 05:43 Hypochromasia Not Reportable 03/17/18 05:43 Poikilocytosis 1+ 03/17/18 05:43 Anisocytosis 1+ 03/17/18 05:43 Microcytosis Few 03/17/18 05:43 Macrocytosis Not Reportable 03/17/18 05:43 Spherocytes Not Reportable 03/17/18 05:43 Pappenheimer Bodies Not Reportable 03/17/18 05:43 Sickle Cells Not Reportable 03/17/18 05:43 Target Cells Not Reportable 03/17/18 05:43 Tear Drop Cells Not Reportable 03/17/18 05:43 Ovalocytes Not Reportable 03/17/18 05:43 Stomatocytes 2+ 03/17/18 05:43 Helmet Cells Not Reportable 03/17/18 05:43 [place] Bodies Not Reportable 03/17/18 05:43 [place] Rings Not Reportable 03/17/18 05:43 Benny Cells Not Reportable 03/17/18 05:43 Bite Cells Not Reportable 03/17/18 05:43 Crenated Cell Not Reportable 03/17/18 05:43 Elliptocytes Not Reportable 03/17/18 05:43 Acanthocytes (Spur) Not Reportable 03/17/18 05:43 Rouleaux Not Reportable 03/17/18 05:43 Hemoglobin C Crystals Not Reportable 03/17/18 05:43 Schistocytes Not Reportable 03/17/18 05:43 Malaria parasites Not Reportable 03/17/18 05:43 Rubens Bodies Not Reportable 03/17/18 05:43 Hem Pathologist Commnt No 03/17/18 05:43 Sodium 147 mmol/L (137-145) H 03/23/18 06:00 Potassium 4.4 mmol/L (3.6-5.0) 03/23/18 06:00 Chloride 107.2 mmol/L (98-107) H 03/23/18 06:00 Carbon Dioxide 27 mmol/L (22-30) 03/23/18 06:00 Anion Gap 17 mmol/L 03/23/18 06:00 BUN 45 mg/dL (7-17) H 03/23/18 06:00 Creatinine 0.8 mg/dL (0.7-1.2) 03/23/18 06:00 Estimated GFR > 60 ml/min 03/23/18 06:00 BUN/Creatinine Ratio 56 % 03/23/18 06:00 Glucose 127 mg/dL (65-100) H 03/23/18 06:00 POC Glucose 138 (70-105) H 03/25/18 06:01 Hemoglobin A1c 6.0 % (4-6) 03/17/18 05:43 Lactic Acid 1.70 mmol/L (0.7-2.0) 03/15/18 22:06 Calcium 9.5 mg/dL (8.4-10.2) 03/23/18 06:00 Magnesium 2.30 mg/dL (1.7-2.3) 03/23/18 06:00 Total Bilirubin 0.40 mg/dL (0.1-1.2) 03/15/18 19:36 AST 16 units/L (5-40) 03/15/18 19:36 ALT 9 units/L (7-56) 03/15/18 19:36 Alkaline Phosphatase 70 units/L (35-129) 03/15/18 19:36 Ammonia 19.0 umol/L (25-60) L 03/15/18 21:20 Troponin T 0.029 ng/mL (0.00-0.029) 03/16/18 05:31 Total Protein 7.8 g/dL (6.3-8.2) 03/15/18 19:36 Albumin 3.2 g/dL (3.9-5) L 03/15/18 19:36 Albumin/Globulin Ratio 0.7 % 03/15/18 19:36 Triglycerides 151 mg/dL (2-149) H 03/15/18 19:40 Cholesterol 137 mg/dL (50-199) 03/15/18 19:40 LDL Cholesterol Direct 72 mg/dL (50-130) 03/15/18 19:40 HDL Cholesterol 41 mg/dL (40-59) 03/15/18 19:40 Cholesterol/HDL Ratio 3.34 % 03/15/18 19:40 TSH 4.010 mlU/mL (0.270-4.200) 03/15/18 19:36 Urine Color Yellow (Yellow) 03/15/18 19:59 Urine Turbidity Clear (Clear) 03/15/18 19:59 Urine pH 8.0 (5.0-7.0) H 03/15/18 19:59 Ur Specific [place] 1.015 (1.003-1.030) 03/15/18 19:59 Urine Protein <15 mg/dl mg/dL (Negative) 03/15/18 19:59 Urine Glucose (UA) Neg mg/dL (Negative) 03/15/18 19:59 Urine Ketones Neg mg/dL (Negative) 03/15/18 19:59 Urine Blood Neg (Negative) 03/15/18 19:59 Urine Nitrite Neg (Negative) 03/15/18 19:59 Urine Bilirubin Neg (Negative) 03/15/18 19:59 Urine Urobilinogen < 2.0 mg/dL (<2.0) 03/15/18 19:59 Ur Leukocyte Esterase Neg (Negative) 03/15/18 19:59 Urine WBC (Auto) < 1.0 /HPF (0.0-6.0) 03/15/18 19:59 Urine RBC (Auto) 3.0 /HPF (0.0-6.0) 03/15/18 19:59 Urine Opiates Screen Presumptive negative 03/15/18 19:59 Urine Methadone Screen Presumptive negative 03/15/18 19:59 Ur Barbiturates Screen Presumptive negative 03/15/18 19:59 Ur Phencyclidine Scrn Presumptive negative 03/15/18 19:59 Ur Amphetamines Screen Presumptive negative 03/15/18 19:59 U Benzodiazepines Scrn Presumptive negative 03/15/18 19:59 Urine Cocaine Screen Presumptive negative 03/15/18 19:59 U Marijuana (THC) Screen Presumptive negative 03/15/18 19:59 Drugs of Abuse Note Disclamer 03/15/18 19:59 Plasma/Serum Alcohol < 0.01 % (0-0.07) 03/15/18 19:36
[2018-03-25] MEDS: LOPRESSOR PO SCH (08:00)
[2018-03-25 08:36] VITALS: BP 128/107
[2018-03-25] MEDS: ASPIRIN PO SCH (10:09)
[2018-03-25] MEDS: PEPCID PO SCH (10:09)
[2018-03-25] MEDS: KEPPRA PO SCH (10:10)
[2018-03-25] MEDS: HEPARIN SUB-Q SCH (10:10)
[2018-03-25] MEDS: SODIUM CHLORIDE FLUSH SYRINGE 10 ML IV SCH (10:12)
== END 2018-03-25 11:00 | disposition home health service (06) | DRG 280 ==
LOC: ED 19:01 → 4A 03-16 00:47 → 3A 03-22 13:55
PROVIDERS: ADMIT Internal Medicine; ATTEND Internal Medicine
DX: I21.A1 Myocardial infarction type 2 (principal); G93.40 Encephalopathy, unspecified; R53.2 Functional quadriplegia; R65.10 Systemic inflammatory response syndrome (SIRS) of non-infectious origin without acute organ dysfunction; F03.91 Unspecified dementia, unspecified severity, with behavioral disturbance; I48.92 Unspecified atrial flutter; I48.91 Unspecified atrial fibrillation; E11.9 Type 2 diabetes mellitus without complications; I10 Essential (primary) hypertension; H40.9 Unspecified glaucoma; G40.909 Epilepsy, unspecified, not intractable, without status epilepticus; K21.9 Gastro-esophageal reflux disease without esophagitis; Z88.2 Allergy status to sulfonamides; Z85.3 Personal history of malignant neoplasm of breast; Z91.041 Radiographic dye allergy status; Z92.21 Personal history of antineoplastic chemotherapy; Z92.3 Personal history of irradiation
CPT/HCPCS: 36415; 70450; 71045; 80048; 80053; 80061; 80307; 80320; 81001; 82140; 82962; 83036; 83735; 84443; 84484; 85007; 85025; 85027; 93005; 93010; 94640; 94760; 96361; 96372; 96374; G0480; G8978-GP; G8979-GP; G8980-GP; G8996-GN; G8997-GN; J1170; J1644; J1815; J2060; J7030